=== PATIENT | female | born 1955 | race Caucasian/White ===

== ENCOUNTER 2017-05-09 10:24 | Inpatient (IN) | payer BC, OTHER ==
[~2017-05-09] VITALS: Ht 152.4 cm; Wt 121.5 kg
[~2017-05-09 10:24] MED LIST: CALC-342 PO; LANS30CA12 PO; VTMD1000 PO
[2017-05-09] MEDS ORDERED: DILTIAZEM BOLUS / DRIP IV STA (10:42)
[2017-05-09] MEDS ORDERED: SODIUM CHLORIDE 0.9% 1000ML 1,000 ML IV STA (10:45)
[2017-05-09] MEDS ORDERED: LSN/2025 PO (10:52)
[2017-05-09 11:00] LABS: BASO % 0.3 %; BASO ABS # 0.02 K/uL (0-0.2); COMPLETE YES; EOS % 1.5 %; HEMATOCRIT 46.9 % (37-47); IG% 0.3 %; LYMPH % 35.8 %; LYMPH ABS # 2.69 K/uL (1.2-3.4); MEAN CELL VOLUME 92.5 fL (80-100); MEAN CORPUSCULAR HEMOGLOBIN 30.4 pg (25-34); MEAN CORPUSCULAR HGB CONC 32.8 g/dl (32-36); MEAN PLATELET VOLUME 10.7 fL (7.4-10.4); MONO % 5.2 %; NEUT % 56.9 %; PLATELET COUNT 352 K/uL (130-400); RED BLOOD COUNT 5.07 M/uL (4.2-5.4); WHITE BLOOD COUNT 7.51 K/uL (4.8-10.8)
[2017-05-09] MEDS ORDERED: DILTIAZEM HCL INJ 125 MG in DEXTROSE 5% 100ML IV PRN (11:00)
--- NOTE | 2017-05-09 11:00 | DIAGNOSTIC IMAGING REPORT ---
CHEST ONE VIEW PORTABLE HISTORY:62 yearsFemalechest pain, sob COMPARISON: None available. TECHNIQUE: Portable upright AP view of the chest FINDINGS: Cardiac silhouette is within normal limits. There is atherosclerosis of the aorta. No pneumothorax, pleural effusion or focal airspace consolidation. There is no overt pulmonary edema. There is a 4 mm nodular opacity of the right upper lobe distribution. The bones are grossly intact. IMPRESSION: 1. No acute cardiopulmonary process. 2. 4 mm nodular opacity of the right upper lobe may reflect pulmonary vascular composite density artifact or a pulmonary nodule. This could be correlated with a nonemergent chest CT. The above report was generated using voice recognition software. It may contain grammatical, syntax or spelling errors. Electronically signed by: Dank Fowler 05/09/2017 10:59 AM Dictated Date/Time: 05/09/2017 10:56 AM
[2017-05-09 11:21] LABS: ALT/SGPT 20 U/L (12-78); AST/SGOT 13 U/L (15-37); BLOOD UREA NITROGEN 13 mg/dl (7-18); BUN/CREATININE RATIO 20.3 (10-20); CALCIUM 9.6 mg/dl (8.5-10.1); CARBON DIOXIDE 28 mmol/L (21-32); CHLORIDE 105 mmol/L (98-107); CREATININE 0.63 mg/dl (0.60-1.20); GLUCOSE 126 mg/dl (70-99); POTASSIUM 3.6 mmol/L (3.5-5.1); SODIUM 140 mmol/L (136-145)
[2017-05-09 11:22] LABS: PROTHROMBIN TIME (PATIENT) 10.3 SECONDS (9.0-12.0)
[2017-05-09 11:32] LABS: ALKALINE PHOSPHATASE 57 U/L (45-117)
[2017-05-09 12:10] VITALS: O2SAT 99; Ht 152.4 cm; Wt 121.5 kg
[2017-05-09] MEDS ORDERED: OPTIRAY 320 IV PRN (13:15)
--- NOTE | 2017-05-09 13:51 | DIAGNOSTIC IMAGING REPORT ---
(CHEST FOR PE) ANGIO WITH CT DOSE: 565.71 mGycm HISTORY: 62-year-old female presents with atrial fibrillation, hypoxia and shortness of breath. TECHNIQUE: Multiple CTA images of the chest were obtained after the intravenous administration of 106 ml optiray 320. Coronal and sagittal MIPS were obtained from the axial data set and were submitted for review. Comparison: Chest radiograph 05/09/2017. Findings: CTA: There is adequate opacification of the pulmonary arteries to the level of the subsegmental branches without convincing evidence of acute pulmonary embolism. The main pulmonary artery is dilated measuring up to 3.3 cm transversely. The thoracic aorta is normal in course and caliber. There is atherosclerotic plaquing at the origin of the celiac trunk, only partially imaged which appears to cause at least moderate luminal narrowing. Coronary arterial arterial calcifications are noted. CT CHEST: Mildly prominent right hilar lymph node measures 2.0 x 1.1 cm. Subcarinal lymph node measures 2.4 x 1.1 cm. Mildly enlarged left hilar lymph node measures 1.7 x 1.2 cm. Note is made of an azygos fissure and lobe. There are trace bilateral pleural effusions. No pneumothorax. There is pulmonary vascular congestion with bronchial wall thickening. Scattered consolidative opacities are present within the dependent lung bases. Groundglass opacities are seen peripherally within the right greater than left lung apices measuring up to 1.3 x 0.8 cm. There is subsegmental atelectasis of the lung bases. The imaged upper abdominal structures are normal. The osseous structures appear intact. IMPRESSION: 1. No acute aortic pathology or evidence of pulmonary thromboembolic disease. 2. Trace bilateral pleural effusions with scattered groundglass and consolidative opacities in a multilobar bilateral distribution suggests atypical pneumonia or pulmonary edema. 3. Moderate background bronchitis. 4. Mild hilar and mediastinal adenopathy, likely reactive. Electronically signed by: Dank Fowler 05/09/2017 1:50 PM Dictated Date/Time: 05/09/2017 1:38 PM
[2017-05-09] MEDS ORDERED: CEFTRIAXONE SOD INJ 1 GM ADDVIAL IV STA (13:54)
[2017-05-09] MEDS ORDERED: AZITHROMYCIN 250 MG TAB PO ONE (14:00)
--- NOTE | 2017-05-09 14:02 | EMERGENCY ROOM VISIT NOTE ---
History Report prepared by Goldie: Teto Canela Under the Supervision of: Dr. Daya Pamla D.O. First contact with patient: 10:32 Stated Complaint: RAPID AFIB History of Present Illness The patient is a 62 year old female who presents to the Emergency Room by EMS with complaints of persistent heart palpitations beginning shortly prior to arrival. She states that she woke up and felt a large amount of "pressure" in her chest. She has no cardiac history other than a heart murmur. The patient also notes that she has had some nausea and back pain. She denies any shortness of breath, chills, fevers, vomiting, or diarrhea. She has no history of thyroid problems. EMS found the patient to be in rapid A. fib with a heart rate in the 150s and 160s. The patient was given Cardizem en route which improved her symptoms. Source of History: patient Onset: Shortly prior to arrival Quality: other (heart palpitations) Timing: other (persistent) Modifying Factors (Relieving): other (Cardizem) Associated Symptoms: + chest pain ("pressure"), + nausea, + back pain, No fevers, No SOB, No vomiting, No diarrhea Review of Systems See HPI for pertinent positives & negatives. A total of 10 systems reviewed and were otherwise negative. Past Medical & Surgical Medical Problems: (1) Esophageal Reflux (2) Hypertension Nos Family History No significant family history Social History Smoking Status: Never Smoker Marital Status: Housing Status: lives with family Occupation Status: unemployed Current/Historical Medications Scheduled Calcium Carbonate-Vitamin D (Calcium 600+D), 1 TAB PO BID Cholecalciferol (Vitamin D3), 2,000 INTER.UNIT PO DAILY Hctz/Lisinopril (Lisinopril/Hctz 20/25 Mg), 1 TAB PO DAILY Lansoprazole (Prevacid), 30 MG PO DAILY Allergies Coded Allergies: No Known Allergies (Unverified , 05/09/17) Physical Exam Vital Signs Date Time Temp Pulse Resp B/P (MAP) Pulse Ox O2 Delivery O2 Flow Rate FiO2 05/09/17 14:04 77 05/09/17 13:45 80 16 138/76 99 Nasal Cannula 2.0 05/09/17 12:14 75 18 134/59 98 Nasal Cannula 3.0 05/09/17 12:10 99 Nasal Cannula 2.0 05/09/17 11:36 88 7/10/17 11:30 137 22 131/102 94 Nasal Cannula 3.0 05/09/17 11:15 134 21 110/95 95 Nasal Cannula 3.0 05/09/17 11:01 149 20 125/78 92 Nasal Cannula 3.0 05/09/17 10:52 91 Nasal Cannula 3.0 05/09/17 10:43 36.5 138 22 103/80 86 Room Air 05/09/17 10:43 86 Room Air 05/09/17 10:40 133 Physical Exam GENERAL: alert, well appearing, well nourished, no distress, non-toxic EYE EXAM: normal conjunctiva, PERRL and EOM's grossly intact OROPHARYNX: no exudate, no erythema, lips, buccal mucosa, and tongue normal and mucous membranes are moist NECK: supple, no nuchal rigidity, no adenopathy, non-tender LUNGS: Clear to auscultation. Normal chest wall mechanics HEART: t=Tachycardic rate with a regular rhythm. No murmurs, S1 normal and S2 normal ABDOMEN: abdomen soft, non-tender, normo-active bowel sounds, no masses, no rebound or guarding. BACK: Back is symmetrical on inspection and there is no deformity, no midline tenderness, no CVA tenderness. SKIN: no rashes and no bruising UPPER EXTREMITIES: upper extremities are grossly normal. LOWER EXTREMITIES: No pitting edema. NEURO EXAM: Normal sensorium, cranial nerves II-XII [grossly] intact, normal speech, no [gross] weakness of arms, no [gross] weakness of legs. [No drift. Finger to nose intact. Gross sensation intact.] Medical Decision & Procedures ER Provider Diagnostic Interpretation: Radiology results have been interpreted by the radiologist and reviewed by me. CHEST ONE VIEW PORTABLE FINDINGS: Cardiac silhouette is within normal limits. There is atherosclerosis of the aorta. No pneumothorax, pleural effusion or focal airspace consolidation. There is no overt pulmonary edema. There is a 4 mm nodular opacity of the right upper lobe distribution. The bones are grossly intact. IMPRESSION: 1. No acute cardiopulmonary process. 2. 4 mm nodular opacity of the right upper lobe may reflect pulmonary vascular composite density artifact or a pulmonary nodule. This could be correlated with a nonemergent chest CT. The above report was generated using voice recognition software. It may contain grammatical, syntax or spelling errors. Electronically signed by: Dank Fowler (CHEST FOR PE) ANGIO WITH Findings: CTA: There is adequate opacification of the pulmonary arteries to the level of the subsegmental branches without convincing evidence of acute pulmonary embolism. The main pulmonary artery is dilated measuring up to 3.3 cm transversely. The thoracic aorta is normal in course and caliber. There is atherosclerotic plaquing at the origin of the celiac trunk, only partially imaged which appears to cause at least moderate luminal narrowing. Coronary arterial arterial calcifications are noted. CT CHEST: Mildly prominent right hilar lymph node measures 2.0 x 1.1 cm. Subcarinal lymph node measures 2.4 x 1.1 cm. Mildly enlarged left hilar lymph node measures 1.7 x 1.2 cm. Note is made of an azygos fissure and lobe. There are trace bilateral pleural effusions. No pneumothorax. There is pulmonary vascular congestion with bronchial wall thickening. Scattered consolidative opacities are present within the dependent lung bases. Groundglass opacities are seen peripherally within the right greater than left lung apices measuring up to 1.3 x 0.8 cm. There is subsegmental atelectasis of the lung bases. The imaged upper abdominal structures are normal. The osseous structures appear intact. IMPRESSION: 1. No acute aortic pathology or evidence of pulmonary thromboembolic disease. 2. Trace bilateral pleural effusions with scattered groundglass and consolidative opacities in a multilobar bilateral distribution suggests atypical pneumonia or pulmonary edema. 3. Moderate background bronchitis. 4. Mild hilar and mediastinal adenopathy, likely reactive. Electronically signed by: Dank Fowler Laboratory Results Test 05/09/17 09:36 Immature Granulocyte % (Auto) 0.3 % White Blood Count 7.51 K/uL (4.8-10.8) Red Blood Count 5.07 M/uL (4.2-5.4) Hemoglobin 15.4 g/dL (12.0-16.0) Hematocrit 46.9 % (37-47) Mean Corpuscular Volume 92.5 fL (80-100) Mean Corpuscular Hemoglobin 30.4 pg (25-34) Mean Corpuscular Hemoglobin Concent 32.8 g/dl (32-36) Platelet Count 352 K/uL (130-400) Mean Platelet Volume 10.7 fL (7.4-10.4) Neutrophils (%) (Auto) 56.9 % Lymphocytes (%) (Auto) 35.8 % Monocytes (%) (Auto) 5.2 % Eosinophils (%) (Auto) 1.5 % Basophils (%) (Auto) 0.3 % Neutrophils # (Auto) 4.28 K/uL (1.4-6.5) Lymphocytes # (Auto) 2.69 K/uL (1.2-3.4) Monocytes # (Auto) 0.39 K/uL (0.11-0.59) Eosinophils # (Auto) 0.11 K/uL (0-0.5) Basophils # (Auto) 0.02 K/uL (0-0.2) Immature Granulocyte # (Auto) 0.02 K/uL (0.00-0.02) Prothrombin Time 10.3 SECONDS (9.0-12.0) Prothromb Time International Ratio 1.0 (0.9-1.1) D-Dimer 530 ug/L FEU (0-500) Total Bilirubin 0.4 mg/dl (0.2-1) Aspartate Amino Transf (AST/SGOT) 13 U/L (15-37) Alanine Aminotransferase (ALT/SGPT) 20 U/L (12-78) Alkaline Phosphatase 57 U/L (45-117) Pro-B-Type Natriuretic Peptide 190 pg/ml (0-900) Total Protein 7.4 gm/dl (6.4-8.2) Albumin 3.7 gm/dl (3.4-5.0) Globulin 3.7 gm/dl (2.5-4.0) Albumin/Globulin Ratio 1.0 (0.9-2) Thyroid Stimulating Hormone (TSH) 1.610 uIu/ml (0.300-4.500) Hepatitis C Antibody Screen NEG (NEG) Laboratory results per my review. Medications Administered Medications (Trade) Dose Ordered Sig/Donnie Route Start Time Stop Time Status Last Admin Dose Admin Sodium Chloride 1,000 ml @ 999 mls/hr Q1H1M STAT IV 05/09/17 10:45 05/09/17 11:45 DC 05/09/17 10:59 999 MLS/HR Diltiazem HCl 125 mg/Dextrose 125 ml @ 0 mls/hr Q0M PRN IV 05/09/17 11:00 05/09/17 17:20 DC 05/09/17 10:58 5 MLS/HR Ceftriaxone Sodium (Rocephin Inj) 1 gm NOW STAT IV 05/09/17 13:54 05/09/17 13:55 DC 05/09/17 14:56 1 GM Azithromycin (Zithromax Tab) 500 mg NOW ONCE PO 05/09/17 14:00 05/09/17 14:01 DC 05/09/17 14:56 500 MG Heparin Sodium/ Dextrose (Heparin 25,000 Unit/500ml D5W) 25,000 unit STK-MED ONCE .ROUTE 05/09/17 14:42 05/09/17 14:43 DC 05/09/17 15:00 25,000 UNIT Heparin Sodium (Porcine) (Heparin Sq 5000 Unit/0.5ml) 10,000 unit STK-MED ONCE .ROUTE 05/09/17 14:42 05/09/17 14:43 DC 05/09/17 14:58 6,000 UNIT ECG Indication: abdominal pain, palpitations Rate (beats per minute): 138 Rhythm: atrial fibrillation (with RVR) Findings: ST depression (Leads V4 and V5), other (Normal axis) Change: Repeat ECG reveals a normal sinus rhythm with a rate of 75 bpm. No acute ischemic changes or ectopy seen. Normal intervals. ED Course 1035: The patient was evaluated in room B9. A complete history and physical exam was performed. 1045: Ordered Sodium Chloride 1000 ml @ 999 mls/hr IV, Diltiazem HCl 125 mL IV. 1120: I reassessed the patient. She is resting comfortably. 1209: I checked in on the patient. She appears to have converted to a normal sinus rhythm on the monitor. 1354: Ordered Rocephin Inj 1 gm IV. 1400: Upon reevaluation, the patient is resting comfortably. I discussed the findings and the treatment plan with the patient. She expresses agreement and understanding. I spoke with Dr. Garza of the [facility] Hospitalist Service. Discussed anticoagulation, and would like patient started on heparin at this time. The patient will be evaluated for further management. Ordered Zithromax Tab 500 mg PO. Medical Decision Differential diagnosis: Etiologies such as premature contractions, electrolyte abnormality, cardiac dysrhythmia, thyroid dysfunction, pulmonary embolism, infection, gastrointestinal, as well as others were entertained. Patient symptoms most likely related to her rapid A. fib today, and symptoms seem to started within the last 24 hours, patient thus low risk for stroke. Patient converted to normal sinus rhythm on the emergency room. While evaluating for possible causes of her new onset atrial fibrillation, patient underwent a CT angios chest which raised the possibility of a bilateral atypical pneumonia. Vision covered with antibiotics. No fevers or leukocytosis of the patient has complained of a recent cough. Discussed with patient need for admission and continued monitoring, cardiology evaluation, treatment of her pneumonia, she verbalized understanding was agreeable with plan. Patient noted marked improvement with rate control of her A. fib and further improvement with conversion back to normal sinus rhythm. Doubt bacteremia/sepsis, no evidence of congestive heart failure. No evidence of other vascular etiology, tamponade, effusion. Patient with no prior significant cardiac history. Consults Time Called: 1357 Consulting Physician: Dr. Garza -CHAUNCEY Returned Call: 1400 I reviewed the patient's case with Dr. Garza. CHAUNCEY will evaluate the patient for further management. Impression Primary Impression: Atrial fibrillation with rapid ventricular response Additional Impression: Pneumonia Critical Care I have personally spent 35 minutes of critical care time in the direct management of this patient. This includes bedside care, interpretation of diagnostic studies, and testing, discussion with consultants, patient, and family members, and other required patient management activities. This 35 minutes is in excess of all separately billable procedures. Scribe Attestation The scribe's documentation has been prepared under my direction and personally reviewed by me in its entirety. I confirm that the note above accurately reflects all work, treatment, procedures, and medical decision making performed by me. Departure Information Dispostion Being Evaluated By Hospitalist Referrals Jennifer Mendez P.A. (PCP) Problem Qualifiers Additional Impression: Pneumonia Pneumonia type: due to unspecified organism Laterality: bilateral Lung location: unspecified part of lung Qualified Codes: J18.9 - Pneumonia, unspecified organism
[2017-05-09] MEDS ORDERED: HEPARIN SOD 5000 UNIT/0.5 ML CARP ONE (14:42)
[2017-05-09] MEDS ORDERED: HEPARIN 25000 UNIT/500 ML D5W ONE (14:42)
[2017-05-09] MEDS ORDERED: ALUMINUM/MAGNESIUM/SIMETH (MAALOX MAX) 30 ML UDC PO PRN (14:45)
[2017-05-09] MEDS ORDERED: ACETAMINOPHEN 325 MG TAB PO PRN (14:45)
[2017-05-09] MEDS ORDERED: NITROGLYCERIN 0.4 MG SL PER TAB CHARGE SL PRN (14:45)
[2017-05-09] MEDS ORDERED: MAGNESIUM HYDROXIDE SUSP 30 ML UDC PO PRN (14:45)
[2017-05-09] MEDS ORDERED: ONDANSETRON INJ 2 MG/ML 2 ML VIAL IV PRN (14:45)
[2017-05-09] MEDS ORDERED: POLYETHYLENE (MIRALAX) 17 GM PACK PO PRN (14:45)
--- NOTE | 2017-05-09 15:08 | History and Physical ---
History & Physical Date & Time of Service: May 09, 2017 at 14:54 Chief Complaint: Rapid Afib Primary Care Physician: Jennifer Mendez P.A. History of Present Illness Source: patient Ms. Sevilla is a 62 y/o female with PMHx of HTN, GERD, and OA who presents to the ED complaining of persistent palpitations and chest pain that started at 0630 this AM. She reports last night having back pain which was unusual to her but she contributed this to getting out of the car and thinking she pulled something. Other than this complaint, she went to bed her normal self. This AM, chest pain awoke her and is sternal described as a pressure and similar to gas- like pressure. She states she was burping which did not relieve the pressure which normally does when she has gas-pain/GERD symptoms. She states she felt well overall prior to today. states that she has been coughing more than normal and mostly in the AM. She reports nasal congestion and post-nasal drip. reports she intermittently snores but no diagnosis of ALEM. She has no significant cardiac history but was advised to see a mig tig welder, which she hasn't yet. She states she had an echocardiogram done in August and she was told she had something with her left ventricle. EMS was called and noted patient to be in new onset A Fib with RVR and initiated Cardizem. Patient reporting resolution of symptoms around 1130 today after Cardizem. She denies fever/chills, SOB, abdominal pain, N/V, dysuria, constipation/diarrhea, melena/ hematochezia. In the ED, patient noted to be in A Fib RVR and converted to NSR with Cardizem gtt. She is afebrile without leukocytosis. TSH and electrolytes are WNL. CTA which was negative for PE but evidence of bilateral multiple consolidations suggesting atypical pneumonia vs pulmonary edema. She will be admitted to telemetry for new onset A Fib with RVR. Past Medical/Surgical History Medical Problems: (1) Esophageal Reflux Status: Chronic (2) Hypertension Nos Status: Chronic Family History Diabetes mellitus MOTHER, SISTER, No significant family history Pancreatic Cancer SISTER, Stroke FATHER Social History Smoking Status: Never Smoker Smokeless Tobacco Use: No Alcohol Use: none Drug Use: none Marital Status: Occupational Status: unemployed Multi-Drug Resistant Organisms History of MDRO: No Allergies Coded Allergies: No Known Allergies (Unverified , 05/09/17) Home Medications Scheduled Calcium Carbonate-Vitamin D (Calcium 600+D), 1 TAB PO BID Cholecalciferol (Vitamin D3), 2,000 INTER.UNIT PO DAILY Hctz/Lisinopril (Lisinopril/Hctz 20/25 Mg), 1 TAB PO DAILY Lansoprazole (Prevacid), 30 MG PO DAILY Review of Systems Constitutional: No fever, No chills Eyes: No worsening of vision ENT: + nasal symptoms, + trouble swallowing (chronic due to GERD), No sore throat Respiratory: + cough, + sputum, No wheezing, No dyspnea on exertion, No dyspnea at rest Cardiovascular: + chest pain, + palpitations Abdomen: No pain, No nausea, No vomiting, No diarrhea, No constipation, No GI bleeding Musculoskeletal: + swelling (chronic LLE due to OA of knee), No calf pain Genitourinary - Female: No dysuria Neurologic: No numbness/tingling, No vertigo, No balance problems Hematologic / Lymphatic: No abnormal bleeding/bruising, No clotting problems Physical Exam Vital Signs Date Time Temp Pulse Resp B/P (MAP) Pulse Ox O2 Delivery O2 Flow Rate FiO2 05/09/17 14:04 77 05/09/17 13:45 80 16 138/76 99 Nasal Cannula 2.0 05/09/17 12:14 75 18 134/59 98 Nasal Cannula 3.0 05/09/17 12:10 99 Nasal Cannula 2.0 05/09/17 11:36 88 05/09/17 11:30 137 22 131/102 94 Nasal Cannula 3.0 05/09/17 11:15 134 21 110/95 95 Nasal Cannula 3.0 05/09/17 11:01 149 20 125/78 92 Nasal Cannula 3.0 05/09/17 10:52 91 Nasal Cannula 3.0 05/09/17 10:43 36.5 138 22 103/80 86 Room Air 05/09/17 10:43 86 Room Air 05/09/17 10:40 133 General Appearance: WD/WN, no apparent distress, + obese Head: normocephalic, atraumatic Eyes: sclerae normal ENT: hearing grossly normal Neck: supple, no JVD, trachea midline Respiratory/Chest: normal breath sounds, no respiratory distress, no accessory muscle use, + crackles (minimal in bases bilat) Cardiovascular: regular rate, rhythm, no gallop, no murmur Abdomen/GI: normal bowel sounds, non tender, soft Back: normal inspection, no CVA tenderness Extremities/Musculoskelatal: no calf tenderness, no pedal edema Neurologic/Psych: alert, oriented x 3 Skin: normal color, warm/dry Diagnostics Laboratory Results Results Past 24 Hours Test 05/09/17 09:36 Range/Units White Blood Count 7.51 4.8-10.8 K/uL Red Blood Count 5.07 4.2-5.4 M/uL Hemoglobin 15.4 12.0-16.0 g/dL Hematocrit 46.9 37-47 % Mean Corpuscular Volume 92.5 80-100 fL Mean Corpuscular Hemoglobin 30.4 25-34 pg Mean Corpuscular Hemoglobin Concent 32.8 32-36 g/dl Platelet Count 352 130-400 K/uL Mean Platelet Volume 10.7 7.4-10.4 fL Neutrophils (%) (Auto) 56.9 % Lymphocytes (%) (Auto) 35.8 % Monocytes (%) (Auto) 5.2 % Eosinophils (%) (Auto) 1.5 % Basophils (%) (Auto) 0.3 % Neutrophils # (Auto) 4.28 1.4-6.5 K/uL Lymphocytes # (Auto) 2.69 1.2-3.4 K/uL Monocytes # (Auto) 0.39 0.11-0.59 K/uL Eosinophils # (Auto) 0.11 0-0.5 K/uL Basophils # (Auto) 0.02 0-0.2 K/uL RDW Standard Deviation 48.5 36.4-46.3 fL RDW Coefficient of Variation 14.3 11.5-14.5 % Immature Granulocyte % (Auto) 0.3 % Immature Granulocyte # (Auto) 0.02 0.00-0.02 K/uL Prothrombin Time 10.3 9.0-12.0 SECONDS Prothromb Time International Ratio 1.0 0.9-1.1 D-Dimer 530 0-500 ug/L FEU Sodium Level 140 136-145 mmol/L Potassium Level 3.6 3.5-5.1 mmol/L Chloride Level 105 98-107 mmol/L Carbon Dioxide Level 28 21-32 mmol/L Anion Gap 7.0 3-11 mmol/L Blood Urea Nitrogen 13 7-18 mg/dl Creatinine 0.63 0.60-1.20 mg/dl Est Creatinine Clear Calc Drug Dose 115.8 ml/min Estimated GFR () 113.0 Estimated GFR (Non- 97.5 BUN/Creatinine Ratio 20.3 10-20 Random Glucose 126 70-99 mg/dl Calcium Level 9.6 8.5-10.1 mg/dl Total Bilirubin 0.4 0.2-1 mg/dl Aspartate Amino Transf (AST/SGOT) 13 15-37 U/L Alanine Aminotransferase (ALT/SGPT) 20 12-78 U/L Alkaline Phosphatase 57 45-117 U/L Troponin I < 0.015 0-0.045 ng/ml Pro-B-Type Natriuretic Peptide 190 0-900 pg/ml Total Protein 7.4 6.4-8.2 gm/dl Albumin 3.7 3.4-5.0 gm/dl Globulin 3.7 2.5-4.0 gm/dl Albumin/Globulin Ratio 1.0 0.9-2 Thyroid Stimulating Hormone (TSH) 1.610 0.300-4.500 uIu/ml Diagnostic Radiology (CHEST FOR PE) ANGIO WITH Findings: CTA: There is adequate opacification of the pulmonary arteries to the level of the subsegmental branches without convincing evidence of acute pulmonary embolism. The main pulmonary artery is dilated measuring up to 3.3 cm transversely. The thoracic aorta is normal in course and caliber. There is atherosclerotic plaquing at the origin of the celiac trunk, only partially imaged which appears to cause at least moderate luminal narrowing. Coronary arterial arterial calcifications are noted. CT CHEST: Mildly prominent right hilar lymph node measures 2.0 x 1.1 cm. Subcarinal lymph node measures 2.4 x 1.1 cm. Mildly enlarged left hilar lymph node measures 1.7 x 1.2 cm. Note is made of an azygos fissure and lobe. There are trace bilateral pleural effusions. No pneumothorax. There is pulmonary vascular congestion with bronchial wall thickening. Scattered consolidative opacities are present within the dependent lung bases. Groundglass opacities are seen peripherally within the right greater than left lung apices measuring up to 1.3 x 0.8 cm. There is subsegmental atelectasis of the lung bases. The imaged upper abdominal structures are normal. The osseous structures appear intact. IMPRESSION: 1. No acute aortic pathology or evidence of pulmonary thromboembolic disease. 2. Trace bilateral pleural effusions with scattered groundglass and consolidative opacities in a multilobar bilateral distribution suggests atypical pneumonia or pulmonary edema. 3. Moderate background bronchitis. 4. Mild hilar and mediastinal adenopathy, likely reactive. EKG Atrial fibrillation with rapid ventricular response Nonspecific ST abnormality Abnormal QRS-T angle, consider primary T wave abnormality Abnormal ECG No previous ECGs available Impression Assessment and Plan Ms. Sveilla is a 62 y/o female with PMHx of HTN, GERD, and OA who presents to the ED complaining of persistent palpitations and chest pain that started at 0630 this AM New Onset Atrial Fibrillation with RVR: Currently NSR - CHADSVASC 2 - Converted to NSR with Diltiazem - Monitor on tele and obtain serial cardiac enzymes - Heparin bolus and gtt - Cardizem 120 mg daily - if patient converts back to A Fib RVR can reinstitute gtt if necessary - Lopressor IV PRN tachycardia - Echocardiogram - Consult cardiology - any consideration for ongoing medication control and to establish F/U Multilobar Bilateral Consolidations - Atypical PNA vs Pulmonary Edema: - Increased cough but afebrile without leukocytosis - community acquired - possibly more from pulm. edema related to rhythm? - Levaquin 750 mg IV daily likely can convert to oral agents in AM Acute Hypoxic Respiratory Failure: - Likely from AFib RVR vs Consolidations on CTA -- She denies SOB or H/O pulmonary conditions - question of possible ALEM or hypoventilation syndrome? - O2 per protocol and wean as necessary HTN: - HCTZ/Lisinopril 1 tab daily DVT Prophylaxis: Heparin gtt Code Status: FULL RESUSCITATION Disposition: - Consideration for NOAC - will need cost check to assess affordability Level of Care Telemetry Advanced Directives Existing Living Will: No Existing Power of Associate Designer: No Resuscitation Status FULL RESUSCITATION VTE Prophylaxis VTE Risk Assessment Done? Y/N: Yes Risk Level: Moderate Given or contraindicated: Other Anticoagulation (Heparin gtt) Reviewed: Pt Seen/Exam by Me History Pt states she has no palpitations or chest pain/pressure at this time. She feels at her usual. States sx were first noted when she woke up this AM. Yesterday was a typical day for her and she was able to do all of her usual activities. She did note an uncomfortable feeling in her back last night, but she thought she may have twisted wrong getting out of the car and dismissed this. She is eating dinner now without issue. She is on RA right now and not SOB. Agree with HPI/ROS as noted. General Appearance: no apparent distress, obese Ears, Nose, Throat: hearing grossly normal Neck: supple Respiratory: normal breath sounds, no respiratory distress Cardiovascular: normal peripheral pulses, regular rate, rhythm Gastrointestinal: non tender, soft Extremities: non-tender, no pedal edema Neurologic/Psychiatric: alert, normal mood/affect, oriented x 3 Skin Characteristics: normal color, warm/dry Assessment/Plan Agree with plan as outlined above Pt with new onset afib, now in NSR s/p cardizem drip Will start PO tonight and monitor Heparin gtt and anticoag as determined by cost with CM PNA noted on CTA, erlinda
[2017-05-09] MEDS ORDERED: METOPROLOL TARTRATE 1 MG/ML VIAL IV PRN (15:15)
[2017-05-09 17:00] VITALS: BP 164/78; PULSE 83; TEMP 36.6; O2SAT 95
[2017-05-09] MEDS ORDERED: NURSING VERBAL MED ORDER ONE (17:30)
[2017-05-09] MEDS ORDERED: LEVOFLOXACIN / D5W 750 MG in PREMIXED IN D5W 150 ML IV SCH (18:00)
[2017-05-09] MEDS ORDERED: PANTOprazole SOD 40 MG TAB PO ONE (18:00)
[2017-05-09] MEDS: ALBUT/IPRATROP 3MG/0.5MG NEB 3 ML VIAL INH SCH (19:14)
[2017-05-09 19:20] VITALS: PULSE 87; O2SAT 94
[2017-05-09 19:32] VITALS: BP 168/69; PULSE 87; TEMP 36.6; O2SAT 94
[2017-05-10] VITALS (8 sets, daily range): BP systolic 133–159; BP diastolic 59–78; PULSE 78–106; TEMP 36.5–36.8; O2SAT 93–97
[2017-05-10] MEDS: ALBUT/IPRATROP 3MG/0.5MG NEB 3 ML VIAL INH SCH ×3 (07:29→20:20)
[2017-05-10] MEDS: HEPARIN 25,000 UNIT/500ML D5W 500 ML IV PRN (08:01)
[2017-05-10 08:02] LABS: HEMATOCRIT 41.8 % (37-47); MEAN CELL VOLUME 92.3 fL (80-100); MEAN CORPUSCULAR HGB CONC 32.5 g/dl (32-36); MEAN PLATELET VOLUME 10.1 fL (7.4-10.4); PLATELET COUNT 282 K/uL (130-400); RED BLOOD COUNT 4.53 M/uL (4.2-5.4); WHITE BLOOD COUNT 7.11 K/uL (4.8-10.8)
[2017-05-10] MEDS: PANTOprazole SOD 40 MG TAB PO SCH (08:12)
[2017-05-10] MEDS: LISINOPRIL/HCTZ 20/25MG TAB PO SCH (08:12)
[2017-05-10 08:19] LABS: PARTIAL THROMBOPLASTIN RATIO 1.8
[2017-05-10 08:22] LABS: BUN/CREATININE RATIO 13.6 (10-20); CALCIUM 9.3 mg/dl (8.5-10.1); CREATININE 0.59 mg/dl (0.60-1.20); MAGNESIUM 2.2 mg/dl (1.8-2.4); POTASSIUM 3.9 mmol/L (3.5-5.1)
[2017-05-10] MEDS ORDERED: PERFLUTREN LIPID MICROSPHERE (DEFINITY) IV ONE (08:32)
--- NOTE | 2017-05-10 08:55 | Cardiology Consultation ---
Cardiology Consultation Date of Consultation: May 10, 2017. Requesting Physician: Dr. Castaneda Reason for Consultation: AF, CP, Pos troponin Pt evaluation today including: conversation w/ patient, physical exam, lab review, review of studies, review of inpatient medication list History of Present Illness This is a 62-year-old woman who presented to the emergency room with palpitations and chest discomfort on 05/09/2017. She has a background history of hypertension as well as an echocardiogram done earlier this year showing a left ventricular outflow tract gradient which has not been further evaluated. She has no history of palpitations or chest discomfort. She awoke at around 6: 30 in the morning to go to the bathroom, felt relatively normal at that time, however after going back to bed had sudden onset of rapid palpitations and chest and back discomfort. She thinks the back discomfort may been there to certain extent the evening before but without the palpitations. She felt that she might be having a heart attack so she came to the emergency room where she was noted to be in atrial fibrillation with a rapid ventricular response. She was treated with intravenous diltiazem (although did not have a lot of rate control based on telemetry records) but the arrhythmia terminated spontaneously at around 11:30 AM, therefore she was in it for about 5 hours. She immediately felt better and was aware of the conversion. She is quite adamant that she has never had these symptoms before. Her cardiac enzymes did elevate somewhat following admission, they were normal on admission however peaked at 1.2 on the second set and then drop back to 0.9 on the third set. Her admission electrocardiogram showed rapid atrial fibrillation with lateral ST depression, following conversion the ST depression normalized. She denies having exertional chest discomfort prior to this, although she is troubled by her arthritis and is obese and is not reactive. Indication for blood pressure has been an AIRNA inhibitor, she has not been on a beta pau. Since conversion back to sinus rhythm she has felt well and has had no recurrence of her chest discomfort or her palpitations. She was placed on oral diltiazem which she received this morning. She has chronic mild left leg edema which has not been worsening, she has no shortness of breath. Past Medical/Surgical History (1) Esophageal Reflux (2) Hypertension Nos Family History Diabetes mellitus MOTHER, SISTER, No significant family history Pancreatic Cancer SISTER, Stroke FATHER Social History Smoking Status: Never Smoker History of Alcohol Use: No Review of Systems Constitutional: No fever, No weight loss, No weakness Respiratory: + see HPI, + shortness of breath, No cough, No wheezing, No dyspnea on exertion Cardiac: + see HPI, + chest pain, + edema, No orthopnea, No PND, No palpitations Abdomen: No pain, No nausea, No vomiting, No diarrhea, No GI bleeding Female : No problem reported Neurologic: No paralysis, No weakness, No numbness/tingling, No balance problems Heme: No abnormal bleeding/bruising, No clotting problems Endo: No fatigue Skin: No problem reported All Other Systems: Reviewed and Negative Allergies Coded Allergies: No Known Allergies (Unverified , 05/09/17) Medications Current Inpatient Medications Medications (Trade) Dose Ordered Sig/Donnie Route Start Time Stop Time Status Last Admin Dose Admin Ioversol (Optiray 320) 125 ml UD PRN IV 05/09/17 13:15 05/13/17 13:14 Acetaminophen (Tylenol Tab) 650 mg Q4H PRN PO 05/09/17 14:45 06/08/17 14:44 Al Hydrox/Mg Hydrox/Simethicone (Maalox Max Susp) 15 ml Q4H PRN PO 05/09/17 14:45 06/08/17 14:44 Magnesium Hydroxide (Milk Of Magnesia Susp) 30 ml Q12H PRN PO 05/09/17 14:45 06/08/17 14:44 Ondansetron HCl (Zofran Inj) 4 mg Q6H PRN IV 05/09/17 14:45 06/08/17 14:44 Nitroglycerin (Nitrostat Tab) 0.4 mg UD PRN SL 05/09/17 14:45 06/08/17 14:44 Polyethylene (Miralax Powder Packet) 17 gm DAILY PRN PO 05/09/17 14:45 06/08/17 14:44 HCTZ/Lisinopril (Prinzide 20-25MG Tab) 1 tab DAILY PO 05/10/17 09:00 06/09/17 08:59 05/10/17 08:12 1 TAB Pantoprazole Sodium (Protonix Tab) 40 mg DAILY PO 05/10/17 09:00 06/09/17 08:59 05/10/17 08:12 40 MG Metoprolol Tartrate (Lopressor Iv) 5 mg Q4 PRN IV 05/09/17 15:15 06/08/17 15:14 Levofloxacin 750 mg/Prmx 150 ml @ 100 mls/hr Q24H IV 05/09/17 18:00 05/16/17 17:59 05/09/17 17:46 100 MLS/HR Heparin Sodium/ Dextrose 500 ml @ 28 mls/hr [id number] PRN IV 05/09/17 17:30 06/08/17 17:29 05/10/17 08:01 28 MLS/HR Diltiazem HCl (Cardizem Cd Cap) 120 mg QAM PO 05/10/17 09:00 06/09/17 08:59 05/10/17 08:12 120 MG Albuterol/ Ipratropium (Duoneb) 3 ml QIDR INH 05/09/17 20:00 06/08/17 19:59 05/09/17 19:14 3 ML Physical Exam Vital Signs Past 12 Hours Date Time Temp Pulse Resp B/P (MAP) Pulse Ox O2 Delivery O2 Flow Rate FiO2 05/10/17 04:00 Room Air 05/10/17 04:00 36.8 81 19 152/68 (96) 95 Room Air 05/10/17 00:00 36.7 82 19 159/78 (105) 93 Room Air 05/09/17 23:59 Room Air Constitutional: General Apperance: heathly-appearing Level of Distress: NAD Psychiatric: Mental Status: active & alert Head: normocephalic Eyes: EOM: EOMI ENMT: normal ENT inspection, hearing grossly normal Neck: supple, no masses Lungs: Respiratory effort: no dyspnea, good air movement Auscultation: breath sounds normal, no wheezing Cardiovascular: Heart Auscultation: RRR, no rubs, no gallops, II/ KRIS Peripheral Pulses: Bruits: none appreciated Abdomen: Bowel Sounds: normal Inspection & Palpation: soft, no tenderness, guarding & rebound, no masses Musculoskeletal: normal strength (5/5 throughout) Extremities: edema (+1 edema of the left leg only) Neurologic: Cranial Nerves: grossly intact Sensation: grossly intact Data Laboratory Results: Last 24 Hours Test 05/09/17 09:36 05/09/17 15:44 05/09/17 21:28 05/10/17 07:50 White Blood Count 7.51 K/uL 7.11 K/uL Red Blood Count 5.07 M/uL 4.53 M/uL Hemoglobin 15.4 g/dL 13.6 g/dL Hematocrit 46.9 % 41.8 % Mean Corpuscular Volume 92.5 fL 92.3 fL Mean Corpuscular Hemoglobin 30.4 pg 30.0 pg Mean Corpuscular Hemoglobin Concent 32.8 g/dl 32.5 g/dl Platelet Count 352 K/uL 282 K/uL Mean Platelet Volume 10.7 fL 10.1 fL Neutrophils (%) (Auto) 56.9 % Lymphocytes (%) (Auto) 35.8 % Monocytes (%) (Auto) 5.2 % Eosinophils (%) (Auto) 1.5 % Basophils (%) (Auto) 0.3 % Neutrophils # (Auto) 4.28 K/uL Lymphocytes # (Auto) 2.69 K/uL Monocytes # (Auto) 0.39 K/uL Eosinophils # (Auto) 0.11 K/uL Basophils # (Auto) 0.02 K/uL RDW Standard Deviation 48.5 fL 47.6 fL RDW Coefficient of Variation 14.3 % 14.0 % Immature Granulocyte % (Auto) 0.3 % Immature Granulocyte # (Auto) 0.02 K/uL Prothrombin Time 10.3 SECONDS Prothromb Time International Ratio 1.0 D-Dimer 530 ug/L FEU Sodium Level 140 mmol/L 141 mmol/L Potassium Level 3.6 mmol/L 3.9 mmol/L Chloride Level 105 mmol/L 107 mmol/L Carbon Dioxide Level 28 mmol/L 28 mmol/L Anion Gap 7.0 mmol/L 6.0 mmol/L Blood Urea Nitrogen 13 mg/dl 8 mg/dl Creatinine 0.63 mg/dl 0.59 mg/dl Est Creatinine Clear Calc Drug Dose 115.8 ml/min 121.5 ml/min Estimated GFR () 113.0 115.5 Estimated GFR (Non- 97.5 99.6 BUN/Creatinine Ratio 20.3 13.6 Random Glucose 126 mg/dl 99 mg/dl Calcium Level 9.6 mg/dl 9.3 mg/dl Total Bilirubin 0.4 mg/dl Aspartate Amino Transf (AST/SGOT) 13 U/L Alanine Aminotransferase (ALT/SGPT) 20 U/L Alkaline Phosphatase 57 U/L Troponin I < 0.015 ng/ml 1.200 ng/ml 0.904 ng/ml Pro-B-Type Natriuretic Peptide 190 pg/ml Total Protein 7.4 gm/dl Albumin 3.7 gm/dl Globulin 3.7 gm/dl Albumin/Globulin Ratio 1.0 Thyroid Stimulating Hormone (TSH) 1.610 uIu/ml Hepatitis C Antibody Screen NEG Activated Partial Thromboplast Time 51.8 SECONDS 47.6 SECONDS Partial Thromboplastin Ratio 2.0 1.8 Magnesium Level 2.2 mg/dl Imaging: A chest x-ray done on admission showed no evidence of congestive heart failure. A chest CT scan was negative for pulmonary emboli on admission. Echocardiogram: An echocardiogram done 09/07/2016 shows normal left ventricular size with moderate asymmetric left ventricular hypertrophy and a left ventricular outflow tract obstruction. The maximum provokable gradient was 37 mmHg. Left ventricular systolic function was normal and there were no wall motion abnormalities. EKG: On admission atrial fibrillation with a heart rate of [address] depression of about 1-1/2 to 2 mm. Several echocardiograms following termination of the arrhythmia show sinus rhythm and are normal. Telemetry reviewed: Initially atrial fibrillation with a rapid ventricular response from first being placed on telemetry until around 11:30 when it terminated to a sinus rhythm. The rhythm has been stable since in sinus. Assessment & Plan 1. AF: Evidently started around 0630 05/09/2017, ended spontaneously around 1130 (5 hours). Very obvious to her, associated with CP and palpitations. Not likely she had it before or that it was longer in duration. Role of anticoagulation not clear at this time, would probably stop for now. Should be on beta blockade not calcium pau, but had it today already. Will switch tomorrow to long- acting metoprolol succinate. 2. CP: May have CAD, did have positive troponin but suggests demand ischemia but can be seen with normal cors. Should get stress echo, ordered. Should be OK to do today. It may be helpful to see what happens to her left ventricular outflow tract gradient with exercise as well. 3. HOCM: Documented on echo in August 2016, as well as audible on exam. Should have beta blockade, no other Rx for now. 4. HBP: Would use beta blockade (because of HOCM and AF). Since she ordered he received diltiazem today I will wait until tomorrow to start the metoprolol. Thank you for allowing me to participate in her care.
[2017-05-10] MEDS ORDERED: DILTIAZEM HCL 120 MG CAPCR PO SCH (09:00)
--- NOTE | 2017-05-10 10:22 | Clinical Documentation Query ---
JAKE Carrillo : CLINICAL DOCUMENTATION QUERY Clinical documentation includes a diagnosis of: Acute Hypoxic Respiratory Failure. Review of systems documentation included: " No wheezing, No dyspnea on exertion, No dyspnea at rest". Physical exam documentation included "normal breath sounds, no respiratory distress, no accessory muscle use", "denies SOB", and "no apparent distress". Due to stringent requirements by our coding department, multiple clinical indicators associated with this diagnosis must be present in order for this to be coded/captured within the medical record. If appropriate, please document 2 or more of the following clinical indicators in daily progress notes and the discharge summary. If you feel the diagnosis of acute respiratory failure was made in error, or do not agree with it, simply discontinue documentation thereof. Acute Respiratory Failure indicators include: * Respirations >28 * Air hunger * Use of accessory muscles of respiration * Inability to speak in full sentences * Cyanosis * Pulse ox <90% RA or <95% on O2 *pH <7.35 or >7.45 * pO2 < 60 mm Hg (or 10mm below COPD patient's baseline) * pCO2 >50mm Hg (or 10mm above COPD patient's baseline) * mechanical ventilation * Increased work of breathing * Tachypnea Thank You, Papa Sherwood, RN [phone]
--- NOTE | 2017-05-10 10:25 | Family Medicine Progress Note ---
Progress Note Date of Service May 10, 2017. Subjective Pt evaluation today including: conversation w/ patient, physical exam, chart review, conversation w/ senior [employer] consultant, review of inpatient medication list Pain: none Voiding: no voiding problems Patient states that she is feeling 100% better today. She is no longer having any chest discomfort, is able to walk around without becoming short of breath and feels back to her baseline She was seen by cardiology this morning who ordered a stress echo and would like to switch the patient from CCB to BB as the patient had the episode of afib and has a history of HOCM and previous echo Constitutional: No fever, No chills Respiratory: No cough, No sputum Cardiovascular: No chest pain, No edema, No palpitations Abdomen: No pain, No vomiting, No diarrhea Musculoskeletal: No joint pain, No muscle pain Skin: No rash, No itch, No new/changing skin lesions Medications Current Inpatient Medications Medications (Trade) Dose Ordered Sig/Donnie Route Start Time Stop Time Status Last Admin Dose Admin Ioversol (Optiray 320) 125 ml UD PRN IV 05/09/17 13:15 05/13/17 13:14 Acetaminophen (Tylenol Tab) 650 mg Q4H PRN PO 05/09/17 14:45 06/08/17 14:44 Al Hydrox/Mg Hydrox/Simethicone (Maalox Max Susp) 15 ml Q4H PRN PO 05/09/17 14:45 06/08/17 14:44 Magnesium Hydroxide (Milk Of Magnesia Susp) 30 ml Q12H PRN PO 05/09/17 14:45 06/08/17 14:44 Ondansetron HCl (Zofran Inj) 4 mg Q6H PRN IV 05/09/17 14:45 06/08/17 14:44 Nitroglycerin (Nitrostat Tab) 0.4 mg UD PRN SL 05/09/17 14:45 06/08/17 14:44 Polyethylene (Miralax Powder Packet) 17 gm DAILY PRN PO 05/09/17 14:45 06/08/17 14:44 HCTZ/Lisinopril (Prinzide 20-25MG Tab) 1 tab DAILY PO 05/10/17 09:00 06/09/17 08:59 05/10/17 08:12 1 TAB Pantoprazole Sodium (Protonix Tab) 40 mg DAILY PO 05/10/17 09:00 06/09/17 08:59 05/10/17 08:12 40 MG Metoprolol Tartrate (Lopressor Iv) 5 mg Q4 PRN IV 05/09/17 15:15 06/08/17 15:14 Heparin Sodium/ Dextrose 500 ml @ 28 mls/hr [id number] PRN IV 05/09/17 17:30 06/08/17 17:29 05/10/17 08:01 28 MLS/HR Albuterol/ Ipratropium (Duoneb) 3 ml QIDR INH 05/09/17 20:00 06/08/17 19:59 05/09/17 19:14 3 ML Metoprolol Succinate (Toprol Xl Tab) 100 mg QAM PO 05/11/17 09:00 06/10/17 08:59 Levofloxacin (Levaquin Tab) 750 mg DAILY@1800 PO 05/10/17 18:00 05/16/17 17:59 Objective Vital Signs Date Time Temp Pulse Resp B/P (MAP) Pulse Ox O2 Delivery O2 Flow Rate FiO2 05/10/17 09:23 36.8 81 18 146/63 (90) 96 05/10/17 08:00 Room Air 05/10/17 04:00 Room Air 05/10/17 04:00 36.8 81 19 152/68 (96) 95 Room Air 05/10/17 00:00 36.7 82 19 159/78 (105) 93 Room Air 05/09/17 23:59 Room Air 05/09/17 20:00 Room Air 05/09/17 19:32 36.6 87 20 168/69 (102) 94 Room Air 05/09/17 19:20 87 18 94 Room Air 05/09/17 17:00 36.6 83 18 164/78 (106) 95 Room Air 05/09/17 16:55 36.5 70 21 133/72 97 05/09/17 16:41 70 21 97 05/09/17 16:36 66 20 98 05/09/17 16:31 69 18 133/72 100 05/09/17 16:26 71 22 100 05/09/17 16:21 72 16 100 05/09/17 16:16 67 19 133/63 100 05/09/17 16:11 71 22 98 05/09/17 16:06 68 20 99 05/09/17 16:01 127/65 05/09/17 16:00 73 15 99 05/09/17 15:46 118/52 05/09/17 15:31 134/66 05/09/17 15:30 70 24 99 05/09/17 15:01 76 18 126/67 99 Nasal Cannula 2.0 05/09/17 14:04 77 05/09/17 13:45 80 16 138/76 99 Nasal Cannula 2.0 05/09/17 12:14 75 18 134/59 98 Nasal Cannula 3.0 05/09/17 12:10 99 Nasal Cannula 2.0 05/09/17 11:36 88 05/09/17 11:30 137 22 131/102 94 Nasal Cannula 3.0 05/09/17 11:15 134 21 110/95 95 Nasal Cannula 3.0 05/09/17 11:01 149 20 125/78 92 Nasal Cannula 3.0 05/09/17 10:52 91 Nasal Cannula 3.0 05/09/17 10:43 36.5 138 22 103/80 86 Room Air 05/09/17 10:43 86 Room Air 05/09/17 10:40 133 Physical Exam General Appearance: WD/WN, no apparent distress ENT: hearing grossly normal, pharynx normal Neck: no JVD, no carotid bruits Respiratory/Chest: lungs clear, no respiratory distress, no accessory muscle use Cardiovascular: regular rate, rhythm, no edema, no JVD, + systolic murmur (3/6 murmur heard throughout) Abdomen: normal bowel sounds, non tender, soft Extremities: no calf tenderness, normal capillary refill Neurologic/Psychiatric: alert, normal mood/affect, oriented x 3 Laboratory Results Results Past 24 Hours Test 05/09/17 15:44 05/09/17 21:28 05/10/17 07:50 Range/Units Troponin I 1.200 0.904 0-0.045 ng/ml Activated Partial Thromboplast Time 51.8 47.6 21.0-31.0 SECONDS Partial Thromboplastin Ratio 2.0 1.8 White Blood Count 7.11 4.8-10.8 K/uL Red Blood Count 4.53 4.2-5.4 M/uL Hemoglobin 13.6 12.0-16.0 g/dL Hematocrit 41.8 37-47 % Mean Corpuscular Volume 92.3 80-100 fL Mean Corpuscular Hemoglobin 30.0 25-34 pg Mean Corpuscular Hemoglobin Concent 32.5 32-36 g/dl RDW Standard Deviation 47.6 36.4-46.3 fL RDW Coefficient of Variation 14.0 11.5-14.5 % Platelet Count 282 130-400 K/uL Mean Platelet Volume 10.1 7.4-10.4 fL Sodium Level 141 136-145 mmol/L Potassium Level 3.9 3.5-5.1 mmol/L Chloride Level 107 98-107 mmol/L Carbon Dioxide Level 28 21-32 mmol/L Anion Gap 6.0 3-11 mmol/L Blood Urea Nitrogen 8 7-18 mg/dl Creatinine 0.59 0.60-1.20 mg/dl Est Creatinine Clear Calc Drug Dose 121.5 ml/min Estimated GFR () 115.5 Estimated GFR (Non- 99.6 BUN/Creatinine Ratio 13.6 10-20 Random Glucose 99 70-99 mg/dl Calcium Level 9.3 8.5-10.1 mg/dl Magnesium Level 2.2 1.8-2.4 mg/dl Assessment and Plan Ms. Sevilla is a 62 y/o female with PMHx of HTN, GERD, and OA who presents to the ED complaining of persistent palpitations and chest pain. Was found to be in Afib with RVR and was converted to NSR with diltiazem. New Onset Atrial Fibrillation with RVR: Currently NSR - converted to NSR with diltiazem. - Echo from 2015 showed HOCM. Patient will need to be switched to BB tomorrow - serial cardiac enzymes were 1.2 and 0.9. Likely demand ischaemia considering resolution of symptoms after conversion to NSR - Heparin bolus and gtt - Cardiology ordered a stress echo today to screen for coronary pathology. patient may need cath as outpatient - Patient has a CHASVASC score of 2. Will need to discuss possibility of starting anticoagulation Multilobar Bilateral Consolidations - Atypical PNA vs Pulmonary Edema: - Patient on levaquin IV - Patient has only had a dry cough and has been afebrile with no WCC. CT read as having groundglass and consolidative opacities. - Patient could have atypical pneumonia but considering lack of systemic symptoms, afebrile and no WCC I think this is highly unlikely. I think it would be reasonable to stop antibiotics but I will talk to Dr. Wilcox before doing so HTN: - HCTZ/Lisinopril 1 tab daily - Will add BB tomorrow with patients history of afib and HOCM DVT Prophylaxis: Heparin gtt Code Status: FULL RESUSCITATION Disposition: - Consideration for NOAC - will need cost check to assess affordability Resident Physician Supervision Note: I interviewed and examined the patient. Discussed with Dr. Rothman and agree with findings and plan as documented in the note. Any exceptions or clarifications are listed here: None Documented By: Abdiel Wilcox afib w RVR and elevated troponin possibly demand ischemia - now rate controlled , will need anticoagulation - thinking probably NOAC. for stress later since trop ?demand ischemia just from afib vs also concomitant CAD stable Continued [facility] stay due to: multiple IV medications needed
[2017-05-10] MEDS ORDERED: CEFTRIAXONE SOD INJ 1 GM in DEXTROSE 5% ADD-VANTAGE 50ML 50 ML IV SCH (15:00)
[2017-05-10] MEDS ORDERED: LEVOFLOXACIN 750 MG TAB PO SCH (18:00)
--- NOTE | 2017-05-10 20:36 | ECHOCARDIOGRAM REPORT ---
*NOTICE TO RECEIVING REPUBLICAN AGENCY This information is strictly Confidential and protected under [place] law. [place] law prohibits you from making any further disclosure of this information unless further disclosure is expressly permitted by the written consent of the person to whom it pertains or is authorized by law. A general authorization for the release of medical or other information is not sufficient for this purpose. Hospital accepts no responsibility if the information is made available to any other person, INCLUDING THE PATIENT. Interpretation Summary * Name: ANDREA FUENTES Study Date: 05/10/2017 06:58 AM BP: 152/68 mmHg * Patient Location: C.2E\S\E210\S\1 HR: 81 * : 1955 (M/d/yyyy) Gender: Female Height: 60 in * Age: 62 yrs Ethnicity: DE Weight: 275 lb * Ordering Physician: Seble Castaneda * Referring Physician: Self, Referred * Performed By: Yuni Amanda RDCS * * Reason For Study: AFIB * BSA: 2.1 m2 * Severe concentric left ventricular hypertrophyexcept for more disproportionate thickening of the basal septum. * Hyperdynamic left ventricular systolic function. * Left ventricular diastolic dysfunction. * Mild left ventricular outflow tract obstruction. * Trace mitral and tricuspid regurgitation. * -- Conclusions -- * Aortic valve sclerosis mild, without significant aortic valvular stenosis. Procedure Details * A contrast injection of Definity was performed to improve assessment of LV function. * Contrast was injected into an intravenous site in the left arm. * One vial of Definity ultrasound contrast was diluted in normal saline to a total volume of 10 ml. A total of '2' ml of solution was administered during imaging. * Lot # [id number] of Definity utilized for procedure. * Expiration date JUN 17. * The attending nurse who injected the contrast agent was JEANNE SCHWARZ RN. Left Ventricle * The left ventricle is normal in size. * There is severe concentric left ventricular hypertrophy. * More prominent thickening of the basal septum. * Ejection Fraction = >70 %. * Left ventricular systolic function is normal. * Diastolic dysfunction, Grade II (pseudonormalization pattern). * No regional wall motion abnormalities noted. Right Ventricle * The right ventricle is normal in size and function. Atria * The left atrial size is normal. * Right atrial size is normal. * No ASD detected; PFO is not assessed. Mitral Valve * There is mild mitral annular calcification. * There is no mitral valve stenosis. * There is trace mitral regurgitation. Tricuspid Valve * The tricuspid valve is not well visualized, but is grossly normal. * There is no tricuspid stenosis. * There is trace tricuspid regurgitation. Aortic Valve * The aortic valve is trileaflet. * The aortic valve opens well. * Aortic valve sclerosis mild, without significant aortic valvular stenosis. * Aortic stenosis is absent. * Dimensionless aortic valve index 0.74. Mild LV outflow tract obstruction. * There is no significant aortic regurgitation. Pulmonic Valve * The pulmonic valve is not well seen, but is grossly normal. * Pulmonic stenosis is absent. * There is no pulmonic valvular stenosis. * There is no pulmonic valvular regurgitation. Great Vessels * The aortic root is normal size. Pericardium/Pleural * There is no pericardial effusion. MMode 2D Measurements and Calculations IVSd 2.0 cm IVSs 2.4 cm LVIDd 3.7 cm LVIDs 2.4 cm LVPWd 1.9 cm LVPWs 1.9 cm IVS/LVPW 1.1 FS 35.8 % EDV(Teich) 59.3 ml ESV(Teich) 20.1 ml EF(Teich) 66.1 % EDV(cubed) 52.0 ml ESV(cubed) 13.8 ml EF(cubed) 73.5 % % IVS thick 20.0 % % LVPW thick 0.89 % LV mass(C)d 334.8 grams LV mass(C)dI 156.7 grams/m\S\2 LV mass(C)s 247.8 grams LV mass(C)sI 115.9 grams/m\S\2 SV(Teich) 39.2 ml SI(Teich) 18.4 ml/m\S\2 SV(cubed) 38.2 ml SI(cubed) 17.9 ml/m\S\2 LA dimension 3.8 cm LVAd ap4 30.7 cm\S\2 LVLd ap4 8.2 cm EDV(MOD-sp4) 95.1 ml EDV(sp4-el) 97.5 ml LVAs ap4 16.4 cm\S\2 LVLs ap4 6.5 cm ESV(MOD-sp4) 34.3 ml ESV(sp4-el) 34.9 ml EF(MOD-sp4) 64.0 % EF(sp4-el) 64.2 % LVAd ap2 36.4 cm\S\2 LVLd ap2 9.0 cm EDV(MOD-sp2) 124.9 ml EDV(sp2-el) 125.5 ml LVAs ap2 18.6 cm\S\2 LVLs ap2 7.1 cm ESV(MOD-sp2) 42.2 ml ESV(sp2-el) 41.6 ml EF(MOD-sp2) 66.3 % EF(sp2-el) 66.8 % LVLd %diff 8.8 % EDV(MOD-bp) 113.6 ml LVLs %diff 7.6 % ESV(MOD-bp) 39.8 ml EF(MOD-bp) 64.9 % SV(MOD-sp4) 60.8 ml SI(MOD-sp4) 28.5 ml/m\S\2 SV(MOD-sp2) 82.8 ml SI(MOD-sp2) 38.7 ml/m\S\2 SV(MOD-bp) 73.8 ml SI(MOD-bp) 34.5 ml/m\S\2 SV(sp4-el) 62.6 ml SI(sp4-el) 29.3 ml/m\S\2 SV(sp2-el) 83.9 ml SI(sp2-el) 39.3 ml/m\S\2 Doppler Measurements and Calculations MV E max arabella 145.3 cm/sec MV A max arabella 128.9 cm/sec MV E/A 1.1 MV dec time 0.26 sec Ao V2 max 228.0 cm/sec Ao max PG 20.8 mmHg Ao max PG (full) 5.4 mmHg Ao V2 mean 168.3 cm/sec Ao mean PG 12.4 mmHg Ao V2 VTI 51.6 cm LV V1 max PG 15.4 mmHg LV V1 max 196.2 cm/sec
[2017-05-11] VITALS (7 sets, daily range): BP systolic 119–162; BP diastolic 45–70; PULSE 69–85; TEMP 36.5–36.8; O2SAT 94–98
[2017-05-11] MEDS: HEPARIN 25,000 UNIT/500ML D5W 500 ML IV PRN (01:48)
[2017-05-11 06:07] LABS: HEMATOCRIT 40.8 % (37-47); MEAN CELL VOLUME 92.5 fL (80-100); MEAN CORPUSCULAR HEMOGLOBIN 29.9 pg (25-34); MEAN CORPUSCULAR HGB CONC 32.4 g/dl (32-36); MEAN PLATELET VOLUME 10.2 fL (7.4-10.4); PLATELET COUNT 302 K/uL (130-400); RED BLOOD COUNT 4.41 M/uL (4.2-5.4); WHITE BLOOD COUNT 7.15 K/uL (4.8-10.8)
[2017-05-11 06:32] LABS: BUN/CREATININE RATIO 17.1 (10-20); CALCIUM 9.2 mg/dl (8.5-10.1); CREATININE 0.62 mg/dl (0.60-1.20); MAGNESIUM 2.1 mg/dl (1.8-2.4)
[2017-05-11] MEDS: PANTOprazole SOD 40 MG TAB PO SCH (07:31)
[2017-05-11] MEDS: LISINOPRIL/HCTZ 20/25MG TAB PO SCH (07:32)
[2017-05-11] MEDS: ALBUT/IPRATROP 3MG/0.5MG NEB 3 ML VIAL INH SCH ×2 (07:38→12:00)
[2017-05-11] MEDS ORDERED: METOPROLOL SUCC 50MG EXT REL TAB PO SCH (09:00)
--- NOTE | 2017-05-11 09:02 | Cardiology Follow-Up ---
Subjective Date of Service: May 11, 2017. Pt evaluation today including: conversation w/ patient, physical exam, lab review, review of studies, review of inpatient medication list History of Present Illness This is a 62-year-old woman who presented to the emergency room with palpitations and chest discomfort on 05/09/2017. She has a background history of hypertension as well as an echocardiogram 08/2016 showing a left ventricular outflow tract gradient which has not been further evaluated. She has no history of palpitations or chest discomfort. She awoke at around 6:30 in the morning to go to the bathroom, felt relatively normal at that time, however after going back to bed had sudden onset of rapid palpitations and chest and back discomfort. She thinks the back discomfort may been there to certain extent the evening before but without the palpitations. She felt that she might be having a heart attack so she came to the emergency room where she was noted to be in atrial fibrillation with a rapid ventricular response. She was treated with intravenous diltiazem (although did not have a lot of rate control based on telemetry records) but the arrhythmia terminated spontaneously at around 11:30 AM, therefore she was in it for about 5 hours. She immediately felt better and was aware of the conversion. She is quite adamant that she has never had these symptoms before. Her cardiac enzymes did elevate somewhat following admission, they were normal on admission however peaked at 1.2 on the second set and then drop back to 0.9 on the third set. Her admission electrocardiogram showed rapid atrial fibrillation with lateral ST depression, following conversion the ST depression normalized. She denies having exertional chest discomfort prior to this, although she is troubled by her arthritis and is obese and is not very active. She has been treated for hypertension and has been an VINCE inhibitor, she has not been on a beta pau. Since conversion back to sinus rhythm she has felt well and has had no recurrence of her chest discomfort or her palpitations. She was placed on oral diltiazem which she received yesterday morning. This morning she was started on metoprolol succinate 100 mg daily. She has chronic mild left leg edema which has not been worsening, she has no shortness of breath. We scheduled a stress test for evaluation of her positive enzymes, because of her elevated troponin a Lexiscan Cardiolite was chosen. That should be scheduled for today. She did have an echocardiogram performed. She has had no further atrial fibrillation. This morning she feels well, has no complaints, no chest discomfort and no palpitations. Social History Smoking Status: Never Smoker History of Alcohol Use: No Review of Systems Respiratory: No cough, No sputum, No shortness of breath Cardiac: No chest pain, No edema, No palpitations Medications Cardiovascular: Item Value Date Time Metoprolol 100 mg 05/11/17 0900 Succinate QAM/PO 05/11/17 0732 (Toprol Xl Tab) HCTZ/Lisinopril 1 tab 05/10/17 0900 (Prinzide DAILY/PO 05/11/17 0732 20-25MG Tab) Heparin Sodium/ 500 ml @ 28 mls/hr 05/09/17 1730 Dextrose .[id number] PRN/IV 05/11/17 0148 Objective Vital Signs Past 12 Hours Date Time Temp Pulse Resp B/P (MAP) Pulse Ox O2 Delivery O2 Flow Rate FiO2 05/11/17 08:03 36.8 72 18 162/66 (98) 97 05/11/17 08:00 Room Air 05/11/17 07:38 77 18 98 Room Air 05/11/17 04:20 36.8 74 17 141/54 (83) 96 05/11/17 04:00 Room Air 05/11/17 00:00 Room Air 05/11/17 00:00 36.6 85 18 119/70 (86) 95 Room Air Last Recorded Weight-Kilograms: 121.500 Physical Exam Constitutional: General Apperance: heathly-appearing Level of Distress: NAD Lungs: Respiratory effort: no dyspnea, good air movement Auscultation: breath sounds normal, no wheezing Cardiovascular: Heart Auscultation: RRR, no rubs, no gallops, II/ KRIS Peripheral Pulses: Bruits: none appreciated Extremities: edema (+1 edema of the left leg only) Data Laboratory Results: Last 24 Hours Test 05/11/17 05:46 White Blood Count 7.15 K/uL Red Blood Count 4.41 M/uL Hemoglobin 13.2 g/dL Hematocrit 40.8 % Mean Corpuscular Volume 92.5 fL Mean Corpuscular Hemoglobin 29.9 pg Mean Corpuscular Hemoglobin Concent 32.4 g/dl RDW Standard Deviation 48.8 fL RDW Coefficient of Variation 14.3 % Platelet Count 302 K/uL Mean Platelet Volume 10.2 fL Activated Partial Thromboplast Time 52.4 SECONDS Partial Thromboplastin Ratio 2.0 Sodium Level 142 mmol/L Potassium Level 4.0 mmol/L Chloride Level 106 mmol/L Carbon Dioxide Level 28 mmol/L Anion Gap 8.0 mmol/L Blood Urea Nitrogen 11 mg/dl Creatinine 0.62 mg/dl Est Creatinine Clear Calc Drug Dose 115.6 ml/min Estimated GFR () 113.6 Estimated GFR (Non- 98.0 BUN/Creatinine Ratio 17.1 Random Glucose 99 mg/dl Calcium Level 9.2 mg/dl Magnesium Level 2.1 mg/dl Imaging: Echocardiography done on 05/10/2017 shows severe concentric left ventricular hypertrophy with disproportionate thickening of the basal septum, with mild left ventricular outflow tract obstruction. She also has mild aortic sclerosis. EKG: Electrocardiography this morning demonstrates sinus rhythm with one premature atrial beat and is essentially normal area Telemetry reviewed: Sinus rhythm with PACs, no atrial fibrillation since shortly after admission. Assessment and Plan 1. AF: Evidently started around 0630 05/09/2017, ended spontaneously around 1130 the same day (5 hours). It was very obvious to her, associated with CP and palpitations. It is not likely she had it before or that it was longer in duration. The role of anticoagulation not clear at this time, would probably stop heparin but it may be worthwhile to place her on long-term anticoagulation. With this brief episode it may not be necessary, but there appears to be no reversible cause and it may be related to her diastolic dysfunction and her cardiomyopathy, in which case she will be more prone to it in the future and her chads score does justify it. Should be on beta blockade not calcium pau, now on metoprolol succinate 100 mg daily. 2. Chest pain: She may have CAD, she did have positive troponins but the pattern and lack of electrical graphic changes suggests demand ischemia which can be seen with normal coronaries but may indicate coronary artery disease. Should get stress test which is scheduled for today. It may be helpful to see what happens to her left ventricular outflow tract gradient with exercise as well, this can be scheduled at a later date however. 3. HOCM: Documented on echo in August 2016, as well as audible on exam. Based on her current echo reported probably has not changed much. Should have beta blockade as well as good blood pressure control to minimize progression, no other Rx for now. 4. HBP: Would use beta blockade (because of HOCM and AF). I would gradually titrate to metoprolol succinate 200 mg daily if she tolerates it, and then continue Vince inhibitors if her blood pressure requires it, if her blood pressure does not require it I would drop back on the VINCE inhibitor. Thank you for allowing me to participate in her care.
[2017-05-11] MEDS ORDERED: REGADENOSON 0.4 MG/5 ML SYR ONE (09:06)
[2017-05-11] MEDS ORDERED: TPRSR50 PO (14:15)
--- NOTE | 2017-05-11 14:19 | Discharge Instructions ---
Discharge Instructions Date of Service May 11, 2017. Admission Reason for Admission: Atrial Fibrillation With Rapid Ventricular Respons Discharge Discharge Diagnosis / Problem: Atrial fibrillation Discharge Goals Goal(s): Improve function, Learn about illness, Prevent Disease Progression Activity Recommendations Activity Limitations: per Instructions/Follow-up section . Instructions / Follow-Up Instructions / Follow-Up You were diagnosed with atrial fibrillation in the hospital We will be sending you home with a prescription for metoprolol and xarelto. Please pick these up at the pharmacy. You will need to follow up with Dr. Solis next week. Please follow up with your PCP next week. If you have any worsening chest pain, shortness of breath or palpitations then please come back to the hospital Current Hospital Diet Patient's current hospital diet: AHA Diet (Heart Healthy) Discharge Diet Recommended Diet: Regular Diet Pending Studies Studies pending at discharge: no Medical Emergencies . Who to Call and When: Medical Emergencies: If at any time you feel your situation is an emergency, please call 911 immediately. . Non-Emergent Contact Non-Emergency issues call your: Primary Care Provider, Willow Analyst . . "Provider Documentation" section prepared by Dillon Rothman. . VTE Core Measure Inpt VTE Proph given/why not?: Other Anticoagulation (Heparin gtt)
--- NOTE | 2017-05-11 16:03 | Myocardial Perfusion Study ---
Myocardial Perfusion Study Rpt Myocardial Perfusion Study Rpt Date of Service May 11, 2017 Myocardial Perfusion Study Rpt ONE DAY NUCLEAR MEDICINE TECHNETIUM 99 M CARDIOLITE MYOCARDIAL PERFUSION SCAN CLINICAL HISTORY The patient has a known hypertrophic cardiomyopathy, abnormal EKG, and elevated troponin levels. COMPARISON None TECHNIQUE For the stress portion of the study, 32.0 mCi of technetium 99 M Cardiolite IV was injected at 12:30 p.m. on May 11, 2017. 30 minutes following the injection , imaging of the heart was performed in multiple projections. For the rest portion of the study, 10.4 mCi of technetium 99 M Cardiolite was injected intravenously at 10:35 a.m. 1 hour following the injection, imaging of the heart was performed in the same projections. For the stress portion of the study, 0.4 mg of Lexiscan was injected intravenously as per protocol. Baseline EKG noted normal sinus rhythm with a left axis deviation and left ventricular hypertrophy with repolarization changes. There are no additional changes seen with the infusion. The patient did not experience Lexiscan induced chest discomfort, however, she did note some dyspnea. Blood pressure heart rate remained stable. Following the study, patient was hemodynamically stable and without complaints. FINDINGS The short axis, vertical long axis, horizontal long axis images reviewed in detail. There is a small defect noted in the distal anteroseptum present only at rest. The rotating images suggest that this represents breast attenuation. The stress images show normal myocardial perfusion Joseph excluding stress- induced myocardial ischemia or a prior myocardial infarction. The left ventricle demonstrates hyperdynamic systolic function without wall motion abnormalities. An estimated left ventricular ejection fraction is greater than 70%. IMPRESSION 1. No scintigraphic evidence of a myocardial infarction or stress-induced myocardial ischemia 2. No Lexiscan induced chest pain. Next month 3. No Lexiscan induced EKG changes. 4. Hyperdynamic left ventricular systolic function without wall motion abnormality. Ejection fraction is greater than 70%
[2017-05-11] MEDS ORDERED: RIVA1TAB4 PO (16:17)
--- NOTE | 2017-05-11 17:28 | Discharge Summary ---
Discharge Summary Date of Service May 11, 2017. (Dillon Rothman MD) Discharge Summary Admission Date: May 09, 2017 at 14:49 Discharge Date: May 11, 2017 Discharge Disposition: Home Principal Diagnosis: Atrial fibrillation Consultations: Cardiology (Dillon Rothman MD) Medication Reconciliation New Medications: Rivaroxaban (Xarelto) 20 Mg Tab 1 TAB PO DAILY for 30 Days, #30 TAB 3 Refills Metoprolol Succinate (Metoprolol Succinate ER) 50 Mg Tabcr 100 MG PO QAM for 30 Days, #60 TAB Continued Medications: Calcium Carbonate-Vitamin D (Calcium 600+D) 1 Tab Tab 1 TAB PO BID Cholecalciferol (Vitamin D3) 1,000 Inter.unit Tab 2000 INTER.UNIT PO DAILY Hctz/Lisinopril (Lisinopril/Hctz 20/25 Mg) 1 Ea Tab 1 TAB PO DAILY Lansoprazole (Prevacid) 30 Mg Capcr 30 MG PO DAILY, CAP Discharge Exam Patient comfortable and sitting at the side of the bed Asked many questions about anticoagulation. Answered them to the best of my ability. Review of Systems: Constitutional: No fever, No chills Respiratory: No cough, No sputum, No shortness of breath Cardiovascular: No chest pain, No edema, No palpitations Abdomen: No pain, No nausea, No vomiting Musculoskeletal: No joint pain, No muscle pain Physical Exam: General Appearance: WD/WN, no apparent distress, + obese Respiratory/Chest: lungs clear, no respiratory distress, no accessory muscle use Cardiovascular: regular rate, rhythm, no JVD, normal peripheral pulses, + systolic murmur (3/6 radiate to carotids) Abdomen / GI: normal bowel sounds, non tender, soft Extremities: normal range of motion, non-tender, + pedal edema (+1 edema to mid lechuga) Neurologic/Psychiatric: no motor/sensory deficits, normal mood/affect, oriented x 3 (Dillon Rothman MD) Hospital Course This is a 62-year-old woman who presented to the emergency room with palpitations and chest discomfort on 05/09/2017. She has a background history of hypertension as well as an echocardiogram done earlier this year showing a left ventricular outflow tract gradient which has not been further evaluated. She awoke at around 6:30 in the morning to go to the bathroom, felt relatively normal at that time, however after going back to bed had sudden onset of rapid palpitations and chest and back discomfort. She felt that she might be having a heart attack so she came to the emergency room where she was noted to be in atrial fibrillation with a rapid ventricular response. She was treated with intravenous diltiazem (although did not have a lot of rate control based on telemetry records) but the arrhythmia terminated spontaneously at around 11:30 AM, therefore she was in it for about 5 hours. She immediately felt better and was aware of the conversion. Her cardiac enzymes did elevate somewhat following admission, they were normal on admission however peaked at 1.2 on the second set and then drop back to 0.9 on the third set. Her admission electrocardiogram showed rapid atrial fibrillation with lateral ST depression, following conversion the ST depression normalized. She denies having exertional chest discomfort prior to this, although she is troubled by her arthritis and is obese and is not reactive. Since conversion back to sinus rhythm she felt well and had no recurrence of her chest discomfort or her palpitations. She was placed on oral diltiazem. She had an echo done which showed a severe concentric left ventricular hypertrophy except for more disproportionate thickening of the basal septum and grade 2 diastolic dysfunction. Due to the initial elevation of troponins it was decided to send the patient for a stress echo which returned with no evidence of a wall motion abnormality. Patient was discharged on metoprolol and xarelto and is to follow up with Dr. Solis in his clinic. Patient will also be follow up with her PCP. Total Time Spent: Less than 30 minutes This includes examination of the patient, discharge planning, medication reconciliation, and communication with other providers. (Dillon Rothman MD) Resident Physician Supervision Note: I interviewed and examined the patient. Discussed with Dr. Rothman and agree with findings and plan as documented in the note. 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 septal asymmetric hypertrophy fortunately does not appear to be causing outflow obstruction. metoprolol. elevated troponin - w stress being negative for ischemic changes, seems most likely that this was all demand ischemia from afib mediated tachycardia w her LVH stable for home (Abdiel Wilcox D.O.) Discharge Instructions Please refer to the electronic Patient Visit Report (Discharge Instructions) for additional information. (Dillon Rothman MD) Additional Copies To Munir Solis M.D.; Jennifer Mendez,P.A.
== END 2017-05-11 17:19 | disposition home or self-care (01) | DRG 308 ==
LOC: EDBD 10:24 → C.EDB 10:26 → C.2E 14:49 → ENRESERV 15:18
PROVIDERS: ADMIT Family Medicine; ATTEND Family Medicine
DX: I48.91 Unspecified atrial fibrillation (principal); J96.01 Acute respiratory failure with hypoxia; Z68.43 Body mass index [BMI] 50.0-59.9, adult; J81.1 Chronic pulmonary edema; R79.89 Other specified abnormal findings of blood chemistry; E66.9 Obesity, unspecified; K21.9 Gastro-esophageal reflux disease without esophagitis; R07.9 Chest pain, unspecified; I10 Essential (primary) hypertension; I42.1 Obstructive hypertrophic cardiomyopathy; Z79.899 Other long term (current) drug therapy

== ENCOUNTER → 2017-05-17 | Outpatient (CLI) | payer BC, OTHER ==
[~2017-05-17] MED LIST changes: +LSN/2025 PO; +RIVA1TAB4 PO; +TPRSR50 PO
== END | disposition home or self-care (01) ==
LOC: C.LABBFT 12:17
PROVIDERS: ATTEND Physician Assistant Medical
DX: L60.9 Nail disorder, unspecified (principal)

== ENCOUNTER → 2017-08-29 | Outpatient (CLI) | payer BC, OTHER ==
--- NOTE | 2017-08-30 07:25 | MAMMOGRAPHY REPORT ---
BILATERAL DIGITAL SCREENING MAMMOGRAM TOMOSYNTHESIS WITH CAD: 08/29/2017 CLINICAL HISTORY: Routine screening. Patient has no complaints. TECHNIQUE: Breast tomosynthesis in addition to standard 2D mammography was performed. Current study was also evaluated with a Computer Aided Detection (CAD) system. COMPARISON: Comparison is made to exams dated: 08/27/2016 mammogram, 07/08/2015 mammogram, 10/02/2013 m ammogram, 09/29/2012 mammogram, 06/11/2011 mammogram - [facility], and 04/09/2008. BREAST COMPOSITION: There are scattered areas of fibroglandular density in both breasts. FINDINGS: There are mild vascular calcifications in both breasts. No suspicious mass, architectural distortion or cluster of microcalcifications is seen. IMPRESSION: ACR BI-RADS CATEGORY 2: BENIGN There is no mammographic evidence of malignancy. A 1 year screening mammogram is recommended. The pa tient will receive written notification of the results. Approximately 10% of breast cancers are not detected with mammography. A negative mammographic report should not delay biopsy if a clinically suggestive mass is present. Stephany Solis M.D. ay/:08/29/2017 15:13:48 Division Field Inspector: Doris FREEMAN(Marco Antonio)([place]), [facility] letter sent: Normal 1/2 BI-RADS Code: ACR BI-RADS Category 2: Benign
== END | disposition home or self-care (01) ==
LOC: C.MAMM 09:44
PROVIDERS: ATTEND Physician Assistant Medical
DX: Z12.31 Encounter for screening mammogram for malignant neoplasm of breast (principal)

== ENCOUNTER → 2017-08-29 | Outpatient (CLI) | payer BC, OTHER ==
[2017-08-29 11:27] LABS: ALT/SGPT 19 U/L (12-78); BLOOD UREA NITROGEN 12 mg/dl (7-18); BUN/CREATININE RATIO 19.4 (10-20); CALCIUM 9.1 mg/dl (8.5-10.1); CARBON DIOXIDE 29 mmol/L (21-32); CHLORIDE 105 mmol/L (98-107); CHOLESTEROL 169 mg/dl (0-200); CREATININE 0.59 mg/dl (0.60-1.20); GLUCOSE 91 mg/dl (70-99); POTASSIUM 3.7 mmol/L (3.5-5.1); SODIUM 139 mmol/L (136-145); TRIGLYCERIDES 92 mg/dl (0-150); VERY LOW DENSITY LIPOPROT CALC 18 mg/dl
[2017-08-29 11:30] LABS: ALKALINE PHOSPHATASE 57 U/L (45-117); AST/SGOT 12 U/L (15-37); CHOLESTEROL/HDL RATIO 3.9; HDL CHOLESTEROL 43 mg/dl; LDL CHOLESTEROL CALCULATED 108 mg/dl
== END | disposition home or self-care (01) ==
LOC: C.LAB1850 09:29
PROVIDERS: ATTEND Nurse Practitioner
DX: Z00.00 Encounter for general adult medical examination without abnormal findings (principal); I10 Essential (primary) hypertension; E78.5 Hyperlipidemia, unspecified; E55.9 Vitamin D deficiency, unspecified

== ENCOUNTER 2017-11-13 10:57 | Inpatient (IN) | payer OTHER ==
[~2017-11-13] VITALS: Ht 152.4 cm; Wt 115.8 kg
[2017-11-13 03:30] VITALS: BP 113/73; PULSE 76; TEMP 36.7; O2SAT 94
[~2017-11-13 10:57] MED LIST changes: +METO100T44 PO; -TPRSR50 PO
[2017-11-13 11:38] LABS: BASO % 0.2 %; BASO ABS # 0.01 K/uL (0-0.2); EOS % 0.6 %; EOS ABS # 0.03 K/uL (0-0.5); HEMATOCRIT 44.6 % (37-47); HEMOGLOBIN 15.2 g/dL (12.0-16.0); IG# 0.01 K/uL (0.00-0.02); LYMPH % 37.8 %; LYMPH ABS # 1.93 K/uL (1.2-3.4); MEAN CORPUSCULAR HEMOGLOBIN 31.3 pg (25-34); MEAN CORPUSCULAR HGB CONC 34.1 g/dl (32-36); MEAN PLATELET VOLUME 10.4 fL (7.4-10.4); MONO % 8.2 %; MONO ABS # 0.42 K/uL (0.11-0.59); NEUT ABS # 2.71 K/uL (1.4-6.5); PLATELET COUNT 236 K/uL (130-400); RED CELL DISTRIBUTION WIDTH CV 13.7 % (11.5-14.5); RED CELL DISTRIBUTION WIDTH SD 46.4 fL (36.4-46.3); WHITE BLOOD COUNT 5.11 K/uL (4.8-10.8)
[2017-11-13] MEDS ORDERED: ASPIRIN 324 MG CHEW PO STA (11:40)
[2017-11-13] MEDS ORDERED: METOPROLOL TARTRATE 1 MG/ML VIAL IV STA ×2 (11:40→12:52)
[2017-11-13 11:42] LABS: INR 1.2 (0.9-1.1); PTT PATIENT 33.6 SECONDS (21.0-31.0)
[2017-11-13] MEDS ORDERED: DIGOXIN IV 250 MCG in SYRINGE 9 ML IV ONE ×2 (11:45→14:00)
[2017-11-13 11:51] LABS: ISTAT CREATININE 0.7 mg/dl (0.6-1.3); ISTAT IONIZED CALCIUM 1.1 mmol/l (1.12-1.32); ISTAT POTASSIUM 3.9 mEq/L (3.3-5.0)
[2017-11-13 11:52] LABS: ALBUMIN 3.4 gm/dl (3.4-5.0); ALT/SGPT 27 U/L (12-78); AST/SGOT 25 U/L (15-37); BLOOD UREA NITROGEN 21 mg/dl (7-18); CALCIUM 9.4 mg/dl (8.5-10.1); CARBON DIOXIDE 26 mmol/L (21-32); GLUCOSE 115 mg/dl (70-99); LIPASE 267 U/L (73-393); POTASSIUM 3.2 mmol/L (3.5-5.1); SODIUM 137 mmol/L (136-145)
[2017-11-13 12:13] LABS: ALKALINE PHOSPHATASE 46 U/L (45-117); PHOSPHORUS 3.6 mg/dl (2.5-4.9); TOTAL PROTEIN 7.3 gm/dl (6.4-8.2)
--- NOTE | 2017-11-13 12:22 | DIAGNOSTIC IMAGING REPORT ---
CHEST ONE VIEW PORTABLE HISTORY: Atypical CHEST PAIN COMPARISON: Chest 05/09/2017. FINDINGS: No pneumothorax. No pleural effusions. The heart remains mildly enlarged. Diffuse interstitial and vascular thickening, unchanged. No new focal lung consolidations. IMPRESSION: No change in the cardiomegaly and mild congestive change/edema. Electronically signed by: Sung Smyth M.D. 11/13/2017 12:21 PM Dictated Date/Time: 11/13/2017 12:19 PM
[2017-11-13] MEDS ORDERED: MAGNESIUM HYDROXIDE SUSP 30 ML UDC PO PRN (13:30)
[2017-11-13] MEDS ORDERED: POLYETHYLENE (MIRALAX) 17 GM PACK PO PRN (13:30)
[2017-11-13] MEDS ORDERED: ONDANSETRON INJ 2 MG/ML 2 ML VIAL IV PRN (13:30)
[2017-11-13] MEDS ORDERED: MoRPHine SULFATE 2 MG/ML CARP IV PRN (13:30)
[2017-11-13] MEDS ORDERED: METOPROLOL TARTRATE 1 MG/ML VIAL IV PRN (13:30)
[2017-11-13] MEDS ORDERED: ALUMINUM/MAGNESIUM/SIMETH (MAALOX MAX) 30 ML UDC PO PRN (13:30)
[2017-11-13] MEDS ORDERED: ACETAMINOPHEN 325 MG TAB PO PRN (13:30)
[2017-11-13] MEDS ORDERED: POTASSIUM CHLORIDE 10 MEQ TABCR PO ONE (13:30)
--- NOTE | 2017-11-13 13:35 | History and Physical ---
History & Physical Date & Time of Service: Nov 13, 2017 at 13:22 Chief Complaint: Chest Pressure Primary Care Physician: Jessica Valadez C.RShiraNShiraPShira History of Present Illness Source: patient, family ( ), clinic records, hospital records Patient is a pleasant 62 y/o female, with PMHx of paroxysmal a.fib, HTN, and GERD, who presented to the ED with complaints of centralized chest pressure. Discomfort did not radiate. No alleviating/aggravating factors. +nausea prior to arrival. She does have a h/o a.fib w/ RVR- she presented in April 2017 with similar symptoms. When presenting to ED today, patient was found to be in a.fib w/ RVR (HR >150) and hypotensive at 65/47. ED physician spoke w/ Dr. Woodard who instructed IV Metoprolol + Digoxin- rates improved to 120-130s and BP at 112/ 72. Patient did take all of her medications this AM. Patient denies any fever, chills, sweats, lightheadedness, dizziness, vision changes, palpitations, edema , SOB, wheezing, cough, abdominal pain, vomiting, diarrhea, urinary symptoms, melena, numbness/tingling, weakness, muscle/joint pain, anxiety/depression, active bleeding, or new skin discoloration/changes. Past Medical/Surgical History Medical Problems: Paroxysmal a.fib HTN GERD Family History Diabetes mellitus MOTHER, SISTER, No significant family history Pancreatic Cancer SISTER, Stroke FATHER Social History Smoking Status: Never Smoker Drug Use: none Marital Status: Occupational Status: unemployed Multi-Drug Resistant Organisms History of MDRO: No Allergies Coded Allergies: No Known Allergies (Unverified , 11/13/17) Home Medications Scheduled Calcium Carbonate-Vitamin D (Calcium 600+D), 1 TAB PO BID Cholecalciferol (Vitamin D3), 2,000 INTER.UNIT PO DAILY Hctz/Lisinopril (Lisinopril/Hctz 20/25 Mg), 1 TAB PO QAM Lansoprazole (Prevacid), 30 MG PO QAM Metoprolol Succ (Toprol Xl) (Toprol-Xl ), 100 MG PO QAM Rivaroxaban (Xarelto), 20 MG PO QAM Physical Exam Vital Signs Date Time Temp Pulse Resp B/P (MAP) Pulse Ox O2 Delivery O2 Flow Rate FiO2 11/13/17 13:16 122 18 112/72 98 2.0 11/13/17 13:15 125 112/72 11/13/17 12:34 134 20 102/75 94 Nasal Cannula 2.0 11/13/17 12:25 145 84/68 96 Nasal Cannula 3.0 11/13/17 12:14 135 73/60 94 Room Air 11/13/17 12:13 139 11/13/17 12:00 150 20 53/36 93 Nasal Cannula 3.0 11/13/17 11:56 140 97/61 11/13/17 11:45 134 11/13/17 11:06 36.1 153 20 65/47 95 Nasal Cannula 3.0 General Appearance: no apparent distress, + obese, + pertinent finding (O2 NC ) Head: normocephalic, atraumatic Eyes: normal inspection, PERRL ENT: hearing grossly normal Neck: supple Respiratory/Chest: lungs clear, no respiratory distress, no accessory muscle use Cardiovascular: + tachycardia, + systolic murmur, + irregularly irregular Abdomen/GI: normal bowel sounds, non tender, soft Back: normal inspection Extremities/Musculoskelatal: no calf tenderness, no pedal edema Neurologic/Psych: alert, normal mood/affect, oriented x 3 Skin: normal color, warm/dry, no rash Diagnostics Laboratory Results Results Past 24 Hours Test 11/13/17 11:15 11/13/17 11:40 Range/Units White Blood Count 5.11 4.8-10.8 K/uL Red Blood Count 4.85 4.2-5.4 M/uL Hemoglobin 15.2 12.0-16.0 g/dL Hematocrit 44.6 37-47 % Mean Corpuscular Volume 92.0 80-100 fL Mean Corpuscular Hemoglobin 31.3 25-34 pg Mean Corpuscular Hemoglobin Concent 34.1 32-36 g/dl Platelet Count 236 130-400 K/uL Mean Platelet Volume 10.4 7.4-10.4 fL Neutrophils (%) (Auto) 53.0 % Lymphocytes (%) (Auto) 37.8 % Monocytes (%) (Auto) 8.2 % Eosinophils (%) (Auto) 0.6 % Basophils (%) (Auto) 0.2 % Neutrophils # (Auto) 2.71 1.4-6.5 K/uL Lymphocytes # (Auto) 1.93 1.2-3.4 K/uL Monocytes # (Auto) 0.42 0.11-0.59 K/uL Eosinophils # (Auto) 0.03 0-0.5 K/uL Basophils # (Auto) 0.01 0-0.2 K/uL RDW Standard Deviation 46.4 36.4-46.3 fL RDW Coefficient of Variation 13.7 11.5-14.5 % Immature Granulocyte % (Auto) 0.2 % Immature Granulocyte # (Auto) 0.01 0.00-0.02 K/uL Prothrombin Time 12.1 9.0-12.0 SECONDS Prothromb Time International Ratio 1.2 0.9-1.1 Activated Partial Thromboplast Time 33.6 21.0-31.0 SECONDS Partial Thromboplastin Ratio 1.3 Sodium Level 137 136-145 mmol/L Potassium Level 3.2 3.5-5.1 mmol/L Chloride Level 101 98-107 mmol/L Carbon Dioxide Level 26 21-32 mmol/L Anion Gap 10.0 17.0 16-25 mmol/L Blood Urea Nitrogen 21 7-18 mg/dl Creatinine 0.80 0.60-1.20 mg/dl Est Creatinine Clear Calc Drug Dose 88.9 ml/min Estimated GFR () 92.9 Estimated GFR (Non- 80.1 BUN/Creatinine Ratio 26.5 10-20 Random Glucose 115 70-99 mg/dl Calcium Level 9.4 8.5-10.1 mg/dl Phosphorus Level 3.6 2.5-4.9 mg/dl Magnesium Level 1.8 1.8-2.4 mg/dl Total Bilirubin 0.6 0.2-1 mg/dl Direct Bilirubin 0.1 0-0.2 mg/dl Aspartate Amino Transf (AST/SGOT) 25 15-37 U/L Alanine Aminotransferase (ALT/SGPT) 27 12-78 U/L Alkaline Phosphatase 46 45-117 U/L Troponin I < 0.015 0-0.045 ng/ml Pro-B-Type Natriuretic Peptide 310 0-900 pg/ml Total Protein 7.3 6.4-8.2 gm/dl Albumin 3.4 3.4-5.0 gm/dl Lipase 267 73-393 U/L Bedside Hemoglobin 15.3 12.0-16.0 g/dl Bedside Hematocrit 45 37-47 % Bedside Sodium 140 135-144 mEq/L Bedside Potassium 3.9 3.3-5.0 mEq/L Bedside Chloride 99 101-112 mEq/L Bedside Total CO2 29 24-31 mEq/l Bedside Blood Urea Nitrogen 29 7-18 mg/dl Bedside Creatinine 0.7 0.6-1.3 mg/dl Bedside Glucose (other) 119 70-99 mg/dl Bedside Ionized Calcium (Mira) 1.10 1.12-1.32 mmol/l Diagnostic Radiology CHEST ONE VIEW PORTABLE HISTORY: Atypical CHEST PAIN COMPARISON: Chest 05/09/2017. FINDINGS: No pneumothorax. No pleural effusions. The heart remains mildly enlarged. Diffuse interstitial and vascular thickening, unchanged. No new focal lung consolidations. IMPRESSION: No change in the cardiomegaly and mild congestive change/edema. Electronically signed by: Sung Smyth M.D. 11/13/2017 12:21 PM Dictated Date/Time: 11/13/2017 12:19 PM The status of this report is Signed. Draft = Not yet reviewed or approved by Radiologist. Signed = Reviewed and approved by Radiologist. EKG GINA ANDREA ID:[id number] 13-NOV-2017 11:03:00 [facility] Atrial fibrillation with rapid ventricular response ST & T wave abnormality, consider lateral ischemia Abnormal ECG When compared with ECG of 11-MAY-2017 07:15, Atrial fibrillation has replaced Sinus rhythm Vent. rate has increased BY [address] now depressed in Inferior leads ST now depressed in Anterolateral leads 25mm/s 10mm/mV 150Hz 8.0 SP2 12SL 241 THAD: 13 Referred by: Unconfirmed Vent. rate 147 BPM MS interval * ms QRS duration 90 ms QT/QTc 322/503 ms P-R-T axes * -9 116 1955 (62 yr) Female Room: Loc:15 Machinery Erector:SONI Tijerina ind: Impression Assessment and Plan Patient is a pleasant 62 y/o female, with PMHx of paroxysmal a.fib, HTN, and GERD, who presented to the ED with complaints of centralized chest pressure. A.fib w/ RVR: - Admit to tele for cardiac monitoring - Trend cardiac enzymes- initial enzymes negative - Follow EKG QAM and PRN for chest pain - Continue Metoprolol 100 mg QAM and IV Metoprolol 5 mg q6 hr PRN for HR >120 - Digoxin 250 mcg x1 dose in ED - Continue Xarelto - Consulted cardiology, appreciate recommendations Hypokalemia at 3.2: KCL 40 mEq PO x1 dose now- follow PRP and replace PRN HTN w/ hypotension in ED secondary to a.fib w/ RVR: Hold HCTZ/Lisinopril GERD: Protonix while inpatient- resume Prevacid at discharge DVT prophylaxis: Xarelto Code Status: LEVEL III, FULL NO MECH VENT Dispo: From home, lives w/ - no discharge needs anticipated Level of Care Telemetry Resuscitation Status FULL NO MECH VENTILATION VTE Prophylaxis VTE Risk Assessment Done? Y/N: Yes Risk Level: Moderate Given or contraindicated: Other Anticoagulation, T.E.D. Stockings, SCD's Reviewed: Pt Seen/Exam by Me History Pt c/o chest pain that started today. She has been fighting a "cold" recently, but otherwise has been doing well. She has not had chest pain recently. She occasionally feels skipped beats, but this is fleeting and she has not noted it recently. Pt is feeling much improved with improved HR control. Agree with HPI/ROS as noted by PA General Appearance: no apparent distress, obese Respiratory: normal breath sounds, no respiratory distress Cardiovascular: normal peripheral pulses, regular rate, rhythm Gastrointestinal: non tender, soft Extremities: non-tender, no pedal edema Neurologic/Psychiatric: alert, normal mood/affect, oriented x 3 Skin Characteristics: normal color, warm/dry Assessment/Plan Agree with plan as outlined above Pt initially presenting in afib with RVR in the 150s. Improved to 120s s/p digoxin loading dose and torpol, however was with no further improvement. Received second dose of digoxin and has now converted to NSR Hx of afib, on xarelto, follows with Dr. Solis
--- NOTE | 2017-11-13 14:47 | EMERGENCY ROOM VISIT NOTE ---
History Report prepared by Goldie: Melina Glover Under the Supervision of: Dr. Ted Bradford M.D. First contact with patient: 11:09 Chief Complaint: CHEST PAIN Stated Complaint: CHEST PRESSURE Nursing Triage Summary: pt reports started with chest pressure at 0900 denies radiation denies NV reports increased sob with exertion reports nausea while using the restroom prior to EMS arrival to home pt denies vomitting History of Present Illness The patient is a 62 year old female with a past medical history of hypertension, esophageal reflux, and atrial fibrillation who presents to the ED with a cc of constant chest pain beginning 2.5 hours ago. She describes the pain as a tightness. Negative recent use of stimulants, cough, fever, chills, shortness of breath, long travel, history of blood clots, nausea, vomiting, leg swelling, and missing any doses of her medication.. Source of History: patient Onset: 2.5 hours ago Position: chest Quality: other (tightness) Timing: constant Associated Symptoms: No fevers, No chills, No cough, No SOB, No nausea, No vomiting Note: The patient denies recent use of stimulants, long travel, history of blood clots , leg swelling, and missing any doses of her medication.. Review of Systems See HPI for pertinent positives and negatives. A total of ten systems were reviewed and were otherwise negative. Past Medical & Surgical Medical Problems: (1) Atrial fibrillation (2) Atrial fibrillation with RVR (3) Esophageal Reflux (4) Hypertension Nos Family History Diabetes mellitus MOTHER, SISTER, No significant family history Pancreatic Cancer SISTER, Stroke FATHER Social History Smoking Status: Never Smoker Drug Use: none Marital Status: Housing Status: lives with family Occupation Status: unemployed Current/Historical Medications Scheduled Calcium Carbonate-Vitamin D (Calcium 600+D), 1 TAB PO BID Cholecalciferol (Vitamin D3), 2,000 INTER.UNIT PO DAILY Hctz/Lisinopril (Lisinopril/Hctz 20/25 Mg), 1 TAB PO QAM Lansoprazole (Prevacid), 30 MG PO QAM Metoprolol Succ (Toprol Xl) (Toprol-Xl ), 100 MG PO QAM Rivaroxaban (Xarelto), 20 MG PO QAM Allergies Coded Allergies: No Known Allergies (Unverified , 11/13/17) Physical Exam Vital Signs Date Time Temp Pulse Resp B/P (MAP) Pulse Ox O2 Delivery O2 Flow Rate FiO2 11/13/17 13:16 122 18 112/72 98 2.0 11/13/17 13:15 125 112/72 11/13/17 12:34 134 20 102/75 94 Nasal Cannula 2.0 11/13/17 12:25 145 84/68 96 Nasal Cannula 3.0 11/13/17 12:14 135 73/60 94 Room Air 11/13/17 12:13 139 11/13/17 12:00 150 20 53/36 93 Nasal Cannula 3.0 11/13/17 11:56 140 97/61 11/13/17 11:45 134 11/13/17 11:06 36.1 153 20 65/47 95 Nasal Cannula 3.0 Physical Exam GENERAL: Awake, alert, well-appearing, NAD HENT: Normocephalic, atraumatic. EYES: Normal conjunctiva. Sclera non-icteric. NECK: Supple. No nuchal rigidity. FROM. RESPIRATORY: Bibasilar crackles. No rhonchi, wheezing, CARDIAC: RRR, no MRG ABDOMEN: Soft, NTND, BS+ MSK: No chest wall TTP, no LE edema NEURO: GCS 15, CN 2-12 intact, moves all 4s on command SKIN: No rash or jaundice noted. Medical Decision & Procedures ER Provider Diagnostic Interpretation: Radiology results as stated below per my review and radiologist interpretation: CHEST ONE VIEW PORTABLE HISTORY: Atypical CHEST PAIN COMPARISON: Chest 05/09/2017. FINDINGS: No pneumothorax. No pleural effusions. The heart remains mildly enlarged. Diffuse interstitial and vascular thickening, unchanged. No new focal lung consolidations. IMPRESSION: No change in the cardiomegaly and mild congestive change/edema. Electronically signed by: Sung Smyth M.D. 11/13/2017 12:21 PM Dictated Date/Time: 11/13/2017 12:19 PM Laboratory Results 11/13/17 11:15 Red Blood Count 4.85, Mean Corpuscular Volume 92.0, Mean Corpuscular Hemoglobin 31.3, Mean Corpuscular Hemoglobin Concent 34.1, Mean Platelet Volume 10.4, Neutrophils (%) (Auto) 53.0, Lymphocytes (%) (Auto) 37.8, Monocytes (%) (Auto) 8.2, Eosinophils (%) (Auto) 0.6, Basophils (%) (Auto) 0.2, Neutrophils # (Auto) 2.71, Lymphocytes # (Auto) 1.93, Monocytes # (Auto) 0.42, Eosinophils # (Auto) 0.03, Basophils # (Auto) 0.01 11/13/17 11:15 Test 11/13/17 11:15 11/13/17 11:40 White Blood Count 5.11 K/uL (4.8-10.8) Red Blood Count 4.85 M/uL (4.2-5.4) Hemoglobin 15.2 g/dL (12.0-16.0) Hematocrit 44.6 % (37-47) Mean Corpuscular Volume 92.0 fL (80-100) Mean Corpuscular Hemoglobin 31.3 pg (25-34) Mean Corpuscular Hemoglobin Concent 34.1 g/dl (32-36) Platelet Count 236 K/uL (130-400) Mean Platelet Volume 10.4 fL (7.4-10.4) Neutrophils (%) (Auto) 53.0 % Lymphocytes (%) (Auto) 37.8 % Monocytes (%) (Auto) 8.2 % Eosinophils (%) (Auto) 0.6 % Basophils (%) (Auto) 0.2 % Neutrophils # (Auto) 2.71 K/uL (1.4-6.5) Lymphocytes # (Auto) 1.93 K/uL (1.2-3.4) Monocytes # (Auto) 0.42 K/uL (0.11-0.59) Eosinophils # (Auto) 0.03 K/uL (0-0.5) Basophils # (Auto) 0.01 K/uL (0-0.2) RDW Standard Deviation 46.4 fL (36.4-46.3) RDW Coefficient of Variation 13.7 % (11.5-14.5) Immature Granulocyte % (Auto) 0.2 % Immature Granulocyte # (Auto) 0.01 K/uL (0.00-0.02) Prothrombin Time 12.1 SECONDS (9.0-12.0) Prothromb Time International Ratio 1.2 (0.9-1.1) Activated Partial Thromboplast Time 33.6 SECONDS (21.0-31.0) Partial Thromboplastin Ratio 1.3 Est Creatinine Clear Calc Drug Dose 88.9 ml/min Estimated GFR () 92.9 Estimated GFR (Non- 80.1 BUN/Creatinine Ratio 26.5 (10-20) Calcium Level 9.4 mg/dl (8.5-10.1) Phosphorus Level 3.6 mg/dl (2.5-4.9) Magnesium Level 1.8 mg/dl (1.8-2.4) Total Bilirubin 0.6 mg/dl (0.2-1) Direct Bilirubin 0.1 mg/dl (0-0.2) Aspartate Amino Transf (AST/SGOT) 25 U/L (15-37) Alanine Aminotransferase (ALT/SGPT) 27 U/L (12-78) Alkaline Phosphatase 46 U/L (45-117) Troponin I < 0.015 ng/ml (0-0.045) Pro-B-Type Natriuretic Peptide 310 pg/ml (0-900) Total Protein 7.3 gm/dl (6.4-8.2) Albumin 3.4 gm/dl (3.4-5.0) Lipase 267 U/L (73-393) Bedside Hemoglobin 15.3 g/dl (12.0-16.0) Bedside Hematocrit 45 % (37-47) Bedside Sodium 140 mEq/L (135-144) Bedside Potassium 3.9 mEq/L (3.3-5.0) Bedside Chloride 99 mEq/L (101-112) Bedside Total CO2 29 mEq/l (24-31) Anion Gap 17.0 mmol/L (16-25) Bedside Blood Urea Nitrogen 29 mg/dl (7-18) Bedside Creatinine 0.7 mg/dl (0.6-1.3) Bedside Glucose (other) 119 mg/dl (70-99) Bedside Ionized Calcium (Mira) 1.10 mmol/l (1.12-1.32) Laboratory results reviewed by me Medications Administered Medications (Trade) Dose Ordered Sig/Donnie Route Start Time Stop Time Status Last Admin Dose Admin Metoprolol Tartrate (Lopressor Iv) 5 mg NOW STAT IV 11/13/17 11:40 11/13/17 11:43 DC 11/13/17 11:56 5 MG Digoxin 250 mcg/ Syringe 10 ml @ 2 mls/min NOW ONCE IV 11/13/17 11:45 11/13/17 11:49 DC 11/13/17 11:45 2 MLS/MIN Metoprolol Tartrate (Lopressor Iv) 5 mg NOW STAT IV 11/13/17 12:52 11/13/17 12:53 DC 11/13/17 13:15 5 MG ECG Indication: chest pain Rate (beats per minute): 147 Rhythm: atrial fibrillation (with RVR) Findings: ST depression (V3, V4, V5), T-wave inversion (avL), other (normal QRS ) ED Course 1122: The patient was evaluated in room C2B. A complete history and physical exam was performed. 1138: I discussed the patient's case with Dr. Woodard - Cardiology. He agrees to try Digoxin and a Lopressor IV. 1224: I revaluated the patient and she is doing well. 1252: Dr. Woodard states that the EKG looks unchanged. 1259: Discussed the patient's case with Dr. Garza- [facility] [place]. The patient will be evaluated for further treatment and disposition. 1400: I reevaluated the patient and she is resting comfortably. She converted to sinus. Medical Decision The patient is a 62 year old female with a past medical history of hypertension, esophageal reflux, and atrial fibrillation who presents to the ED with a cc of constant chest pain beginning 2.5 hours ago. Etiologies such as cardiac ischemia, aortic dissection, pulmonary embolism, pneumonia, pneumothorax, musculoskeletal, infections, pericarditis, myocarditis , esophageal rupture, gastrointestinal, as well as others were entertained. Patient was seen and evaluated at the bedside. Patient did complain of some left-sided chest pressure which is been ongoing since 9 AM. Patient denied that awoke her from sleep that she was already awake and active. Patient does have a known history of A. fib. Upon further review of the EMR the patient is have a history of hypertrophic obstructive cardiomyopathy. Patient does take 100 mg of Toprol long-acting which she did take this morning. Patient does have some soft blood pressures and is tachycardic in A. fib with RVR. Patient is already anticoagulated on Xarelto. Patient states he's she has not missed any doses and denies any stimulants, caffeine, cocaine. No history of thyroid issues either. Patient's initial blood work was fairly unremarkable. Patient' s EKG did show A. fib with RVR and did show some anterior lateral depressions with T-wave inversions in the high lateral leads. Patient otherwise is very well-appearing. Past were placed and I did speak with the acid operator given the depressions which may be rate related. Cutter Wet Machine deemed that these were unchanged from prior EKG in the past. Patient was given a digoxin load at 250 mics and was also given IV lopressor. The IV lopressor improved her blood pressure as well as her symptoms, thus she was given a second dose of IV lopressor. Upon reevaluation she was feeling improved. Upon subsequent reevaluation after speaking with the hospitalist for admission the patient was noted to be in sinus. A repeat EKG was obtained. Patient was admitted for further evaluation and treatment with a cardiology consult. Medication Reconcilliation Current Medication List: was personally reviewed by me Blood Pressure Screening Patient's blood pressure: Normal blood pressure Will be further monitored by the hospitalist. Consults Time Called: 1137 Consulting Physician: Dr. Yamilet Camarena Returned Call: 1132 I discussed the patient's case with Dr. Yamilet Camarena. He agrees to try Digoxin and a Lopressor IV. Additional Consults: Time Called: 1252 Consulted Physician: Dr. Evelyn GROSSMAN Returned Call: 1253 Additional Comments: Discussed the patient's case with Dr. Evelyn GROSSMAN. The patient will be evaluated for further treatment and disposition. Impression Primary Impression: Atrial fibrillation with RVR Additional Impression: Chest pain Critical Care I have personally spent greater than 45 minutes of critical care time in the direct management of this patient. This includes bedside care, interpretation of diagnostic studies, and testing, discussion with consultants, patient, and family members, and other required patient management activities. This 45 minutes is in excess of all separately billable procedures. Scribe Attestation The scribe's documentation has been prepared under my direction and personally reviewed by me in its entirety. I confirm that the note above accurately reflects all work, treatment, procedures, and medical decision making performed by me. Departure Information Dispostion Being Evaluated By Hospitalist Referrals Jessica Valadez C.R.NShiraP. (PCP) Patient Instructions My [facility] Problem Qualifiers Additional Impression: Chest pain Chest pain type: unspecified Qualified Codes: R07.9 - Chest pain, unspecified
[2017-11-13 15:22] VITALS: BP 122/74; PULSE 90; TEMP 36.6; O2SAT 95; Ht 152.4 cm; Wt 115.8 kg
[2017-11-13 19:23] VITALS: BP 101/66; PULSE 71; TEMP 36.5; O2SAT 91
[2017-11-13 20:06] LABS: CKMB 5.7 ng/ml (0.5-3.6)
[2017-11-13 23:30] VITALS: BP 113/73; PULSE 76; TEMP 36.7; O2SAT 94
[2017-11-14 03:30] VITALS: BP 139/71; PULSE 70; TEMP 36.7; O2SAT 93
[2017-11-14 03:38] LABS: BLOOD UREA NITROGEN 19 mg/dl (7-18); CALCIUM 8.5 mg/dl (8.5-10.1); CARBON DIOXIDE 32 mmol/L (21-32); CKMB 4.3 ng/ml (0.5-3.6); CREATININE 0.81 mg/dl (0.60-1.20); GLUCOSE 99 mg/dl (70-99); POTASSIUM 4.7 mmol/L (3.5-5.1); SODIUM 140 mmol/L (136-145)
[2017-11-14 07:15] VITALS: BP 107/63; PULSE 76; TEMP 36.7; O2SAT 92
[2017-11-14] MEDS ORDERED: CHOLECALCIFEROL 1000 INTER.UNIT TAB PO SCH (09:00)
[2017-11-14] MEDS ORDERED: METOPROLOL SUCC 50MG EXT REL TAB PO SCH (09:00)
[2017-11-14] MEDS ORDERED: PANTOprazole SOD 40 MG TAB PO SCH (09:00)
[2017-11-14] MEDS ORDERED: RIVAROXABAN 20 MG TAB PO SCH (09:00)
[2017-11-14 10:50] VITALS: BP 117/76; PULSE 73; TEMP 36.7; O2SAT 94
[2017-11-14] MEDS ORDERED: METO50TA7 PO (11:01)
--- NOTE | 2017-11-14 11:04 | Discharge Instructions ---
Discharge Instructions Date of Service Nov 14, 2017. Admission Reason for Admission: Atrial Fibrillation With Rvr Discharge Discharge Diagnosis / Problem: Atrial fibrillation with RVR Discharge Goals Goal(s): Decrease discomfort, Learn about illness, Diagnostic testing, Therapeutic intervention, Prevent Disease Progression Activity Recommendations Activity Limitations: resume your previous activity . Instructions / Follow-Up Instructions / Follow-Up Medication changes: Metoprolol 100 mg daily was INCREASED to 150 mg daily Resume all other regular home medications as prescribed FOLLOW-UPS: Please follow-up with your PCP within 5-7 days Please follow-up with Cardiology as scheduled on 12/05/17 Please follow-up/keep all of your subspecialty appointments Current Hospital Diet Patient's current hospital diet: AHA Diet (Heart Healthy) Discharge Diet Recommended Diet: AHA Diet (Heart Healthy) Pending Studies Studies pending at discharge: no Laboratory Results Lipid Panel Test 08/29/17 09:33 Range/Units Triglycerides Level 92 0-150 mg/dl Cholesterol Level 169 0-200 mg/dl HDL Cholesterol 43 mg/dl Cholesterol/HDL Ratio 3.9 LDL Cholesterol, Calculated 108 mg/dl Medical Emergencies . Who to Call and When: Medical Emergencies: If at any time you feel your situation is an emergency, please call 911 immediately. . Non-Emergent Contact Non-Emergency issues call your: Primary Care Provider, Plum Packer Call Non-Emergent contact if: you have any medication questions . . "Provider Documentation" section prepared by Christie Falcon. . VTE Core Measure Inpt VTE Proph given/why not?: Other Anticoagulation, T.E.D. Stockings, SCD's
--- NOTE | 2017-11-14 11:11 | Discharge Summary ---
Discharge Summary Date of Service Nov 14, 2017. Discharge Summary Admission Date: Nov 13, 2017 at 13:22 Discharge Date: Nov 14, 2017 Discharge Disposition: Home Principal Diagnosis: A.fib with RVR Problems/Secondary Diagnoses: Hypokalemia at 3.2 HTN hypotension secondary to a.fib w/ RVR GERD troponin elevation secondary to RVR Procedures: CHEST ONE VIEW PORTABLE HISTORY: Atypical CHEST PAIN COMPARISON: Chest 05/09/2017. FINDINGS: No pneumothorax. No pleural effusions. The heart remains mildly enlarged. Diffuse interstitial and vascular thickening, unchanged. No new focal lung consolidations. IMPRESSION: No change in the cardiomegaly and mild congestive change/edema. Electronically signed by: Sung Smyth M.D. 11/13/2017 12:21 PM Dictated Date/Time: 11/13/2017 12:19 PM The status of this report is Signed. Draft = Not yet reviewed or approved by Radiologist. Signed = Reviewed and approved by Radiologist. Consultations: Cardiology Medication Reconciliation Changed Medications: Metoprolol Succ (Toprol Xl) (Toprol-Xl) 50 Mg Tabcr 3 TAB PO DAILY for 30 Days, #90 TAB 5 Refills (Changed from: Metoprolol Succ ( Toprol Xl) (Toprol-Xl ) 100 Mg Tabcr 100 Mg PO QAM) Continued Medications: Calcium Carbonate-Vitamin D (Calcium 600+D) 1 Tab Tab 1 TAB PO BID Cholecalciferol (Vitamin D3) 1,000 Inter.unit Tab 2000 INTER.UNIT PO DAILY Hctz/Lisinopril (Lisinopril/Hctz 20/25 Mg) 1 Ea Tab 1 TAB PO QAM Lansoprazole (Prevacid) 30 Mg Capcr 30 MG PO QAM Rivaroxaban (Xarelto) 20 Mg Tab 20 MG PO QAM Discharge Exam Review of Systems: Constitutional: No fever, No chills, No sweats, No weakness, No fatigue Eyes: No worsening of vision ENT: No hearing loss Respiratory: No cough, No shortness of breath, No hemoptysis Cardiovascular: No chest pain, No edema, No palpitations Abdomen: No pain, No nausea, No vomiting, No diarrhea, No constipation Musculoskeletal: No joint pain, No muscle pain, No swelling, No calf pain Genitourinary - Female: No dysuria, No hematuria Neurologic: No weakness, No numbness/tingling Psychiatric: No depression symptoms, No anxiety Endocrine: No fatigue Hematologic / Lymphatic: No abnormal bleeding/bruising Integumentary: No rash, No itch, No new/changing skin lesions Physical Exam: General Appearance: no apparent distress, + obese Eyes: normal inspection, PERRL ENT: hearing grossly normal Neck: supple Respiratory/Chest: lungs clear, no respiratory distress, no accessory muscle use Cardiovascular: regular rate, rhythm, + systolic murmur Abdomen / GI: normal bowel sounds, non tender, soft Extremities: no calf tenderness, no pedal edema Neurologic/Psychiatric: alert, normal mood/affect, oriented x 3 Skin: normal color, warm/dry, no rash Hospital Course Admission H&P: Patient is a pleasant 62 y/o female, with PMHx of paroxysmal a.fib, HTN, and GERD, who presented to the ED with complaints of centralized chest pressure. Discomfort did not radiate. No alleviating/aggravating factors. +nausea prior to arrival. She does have a h/o a.fib w/ RVR- she presented in April 2017 with similar symptoms. When presenting to ED today, patient was found to be in a.fib w/ RVR (HR >150) and hypotensive at 65/47. ED physician spoke w/ Dr. Woodard who instructed IV Metoprolol + Digoxin- rates improved to 120-130s and BP at 112/ 72. Patient did take all of her medications this AM. Patient denies any fever, chills, sweats, lightheadedness, dizziness, vision changes, palpitations, edema , SOB, wheezing, cough, abdominal pain, vomiting, diarrhea, urinary symptoms, melena, numbness/tingling, weakness, muscle/joint pain, anxiety/depression, active bleeding, or new skin discoloration/changes. Physical Exam Vital Signs Date Time Temp Pulse Resp B/P (MAP) Pulse Ox O2 Delivery O2 Flow Rate FiO2 11/13/17 13:16 122 18 112/72 98 2.0 11/13/17 13:15 125 112/72 11/13/17 12:34 134 20 102/75 94 Nasal Cannula 2.0 11/13/17 12:25 145 84/68 96 Nasal Cannula 3.0 11/13/17 12:14 135 73/60 94 Room Air 11/13/17 12:13 139 1/14/18 12:00 150 20 53/36 93 Nasal Cannula 3.0 11/13/17 11:56 140 97/61 11/13/17 11:45 134 11/13/17 11:06 36.1 153 20 65/47 95 Nasal Cannula 3.0 General Appearance: no apparent distress, + obese, + pertinent finding (O2 NC ) Head: normocephalic, atraumatic Eyes: normal inspection, PERRL ENT: hearing grossly normal Neck: supple Respiratory/Chest: lungs clear, no respiratory distress, no accessory muscle use Cardiovascular: + tachycardia, + systolic murmur, + irregularly irregular Abdomen/GI: normal bowel sounds, non tender, soft Back: normal inspection Extremities/Musculoskelatal: no calf tenderness, no pedal edema Neurologic/Psych: alert, normal mood/affect, oriented x 3 Skin: normal color, warm/dry, no rash Hospital Course: Patient is a pleasant 62 y/o female, with PMHx of paroxysmal a.fib, HTN, and GERD, who presented to the ED with complaints of centralized chest pressure. A.fib w/ RVR: - Admit to tele for cardiac monitoring- convert to NSR - Trend cardiac enzymes- peak trop 0.725 secondary to RVR - Follow EKG QAM and PRN for chest pain - Continue Metoprolol 100 mg QAM and IV Metoprolol 5 mg q6 hr PRN for HR >120 -- Metoprolol increased to 150 mg daily at discharge per cardiology - Digoxin 250 mcg x2 doses- converted to NSR - Continue Xarelto - Consulted cardiology, appreciate recommendations Hypokalemia at 3.2- RESOLVED: KCL 40 mEq PO x1 dose now- follow PRP and replace PRN HTN w/ hypotension in ED secondary to a.fib w/ RVR- RESOLVED: Hold HCTZ/ Lisinopril- resume at discharge GERD: Protonix while inpatient- resume Prevacid at discharge DVT prophylaxis: Xarelto Code Status: LEVEL III, FULL NO [facility] Dispo: Discharge to home Supervising Note Dr. Warner I performed a history and physical examination on the patient. I reviewed above note and agree with it. I discussed discharge plan with APC and patient. During my face to face encounter with the patient, I answered all of the patient's questions. Total Time Spent: Greater than 30 minutes This includes examination of the patient, discharge planning, medication reconciliation, and communication with other providers. Discharge Instructions Please refer to the electronic Patient Visit Report (Discharge Instructions) for additional information. Follow-Up Please follow-up with your PCP within 5-7 days Please follow-up with Cardiology as scheduled on 12/05/17 Please follow-up/keep all of your subspecialty appointments Additional Copies To Jessica Valadez C.R.N.P.
[2017-11-14 11:54] VITALS: BP 117/76; PULSE 73; TEMP 36.7; O2SAT 94
--- NOTE | 2017-11-14 12:13 | CARDIOLOGY CONSULTATION REPORT ---
DATE OF CONSULTATION: 11/14/2017 REASON FOR CONSULTATION: 1. Paroxysmal Atrial Fibrillation. 2. Elevated Troponin I Level. HISTORY OF PRESENT ILLNESS: Mrs. Sevilla is a morbidly obese 62-year-old white female with a history of a HOCM, Hypertension, GERD, and Paroxysmal Atrial Fibrillation (initially diagnosed in April 2017) who presented acutely to [facility] ER on 11/13/2017 complaining of tachy palpitations, tachycardia, and chest pressure. Symptoms began at approximately 09:00 on 11/13/2017 and lasted for a total of approximately 4-5 hours. The patient states that she was sitting up at the side of her bed on the morning of 11/13/2017 when she had sudden onset tachypalpitations, tachycardia, followed by development of a chest pressure/tightness which did not seem to radiate, but was associated with some mild exertional dyspnea and a brief period of nausea. She was noted to be in rapid atrial fibrillation with ventricular rates in the 150s, and she was somewhat hypotensive on admission. She was given IV Lopressor, and she received a dose of Digoxin. She converted spontaneously from rapid atrial fibrillation back to a normal sinus rhythm at approximately 13:47 on 11/13/2017. She has felt quite well since that time. She has not had any recurrent chest pressure, shortness of breath, dyspnea on exertion, palpitations, tachypalpitations, or any further nausea. She feels like her "old self." The patient's initial troponin I was < 0.015 ng/mL, but peaked at 0.725 ng/mL and is now tending downward. Her EKG on admission showed atrial fibrillation at a rate of approximately 150 beats per minute with lateral ST and T wave abnormalities. Her potassium on admission was slightly low at 3.2 mmol/L, but that has been corrected. ProBNP was within normal limits at 310 pg/mL. MEDICATIONS: 1. Vitamin D 2000 international units daily. 2. Toprol XL 100 mg daily. 3. Xarelto 20 mg daily. 4. Protonix 40 mg daily. 5. Tylenol p.r.n. 6. Maalox max p.r.n. 7. Milk of magnesia p.r.n. 8. Zofran 4 mg IV q. 6 hours p.r.n. for nausea. 9. Morphine sulfate 2 mg IV q. 30 minutes for chest pain as needed. 10. MiraLax powder daily as needed. 11. IV Lopressor 5 mg q. 6 hours p.r.n. 12. She did receive a single dose of digoxin 250 mcg IV. ALLERGIES: NKDA. PAST MEDICAL HISTORY: 1. Hypertrophic Obstructive Cardiomyopathy. 2. Hypertension. 3. GERD. 4. Paroxysmal atrial fibrillation. 5. Echocardiogram 05/10/2017 showed severe LVH with asymmetric basal septal thickening, LVEF greater than 70%, aortic valve sclerosis, grade 2 left ventricular diastolic dysfunction, mild LVOT obstruction, trace MR, trace TR. 6. Lexiscan Cardiolite on 05/11/2017 was negative for myocardial ischemia. LVEF greater than 70%. SOCIAL HISTORY: The patient is and lives at home with her , 2 sons, and a grandson. She is a lifelong nonsmoker. Does not use alcohol. The patient does not work. FAMILY HISTORY: Significant for diabetes mellitus, stroke, and pancreatic cancer. PHYSICAL EXAMINATION: VITAL SIGNS: Temperature is 36.7 degree Celsius, pulse is 72 and regular, respiratory rate is 14, nonlabored, blood pressure is 107/63, SpO2 is 92% on room air. GENERAL: The patient is in no acute distress. She is sitting up at the bedside. HEENT: Head is atraumatic and normocephalic. EOMs intact. Sclerae are anicteric. Face is symmetric. No perioral cyanosis. NECK: Without JVD. Jugular venous pressures at the level of the clavicle siting upright. Carotid upstrokes +2 bilaterally without obvious bruits. CHEST AND LUNGS: Clear to auscultation throughout the lung moise, no wheezes, rales or rhonchi. CARDIOVASCULAR: S1 and S2 are regular with a grade 2/6 systolic murmur heard best at the right second intercostal space, radiates to the suprasternal notch. Also heard at the left sternal border. No diastolic murmurs appreciated. No obvious gallops or rubs. PMI is not palpable. No lifts, heaves or thrills. No abdominal aortic or renal bruits. ABDOMEN: Bowel sounds are present. EXTREMITIES: Without clubbing, cyanosis or edema. NEUROLOGIC: The patient is awake, alert and oriented. Pleasant and cooperative. She answers questions appropriately. Speech is clear. Normal movement in all 4 extremities. [place] pattern not assessed. Current telemetry monitoring reveals normal sinus rhythm. EKG this morning shows a normal sinus rhythm at the rate of 69 beats per minute, this is a normal EKG tracing. No ST segment or T wave abnormalities noted. LABORATORY DATA: Sodium 140 mmol/L, potassium 4.7 mmol/L, BUN is 19 mg/dL, and creatinine is 0.81 mg/dL. Random glucose is 99 mg/dL. Serum magnesium level 1.8 mg/dL. CK-MBs are 4.3 and 5.7 ng/mL. Troponin I levels are 0.665, 0.725 and 0.015 ng/mL. ProBNP normal at 310 pg/mL. Hemoglobin 15.3 g/dL, hematocrit is 45%. Chest x-ray on admission shows chronic cardiomegaly, mild congestive change. ASSESSMENT: 1. Paroxysmal Atrial Fibrillation with Right Ventricular Rate, status post spontaneous conversion to normal sinus rhythm. 2. Chest Pressure and elevated troponin I level -- likely myocardial O2 supply demand mismatch in the presence of rapid atrial fibrillation and severe left ventricular hypertrophy. 3. Hypertrophic Obstructive Cardiomyopathy. 4. Hypertension. 5. Gastroesophageal reflux disease. 6. No evidence of congestive heart failure on physical examination. 7. No signs or symptoms of stroke or mini stroke. PLAN: 1. Discussed with Dr. Solis. 2. The patient reverted back to a normal sinus rhythm yesterday afternoon. She has maintained a normal sinus rhythm since that time. 3. Recommend discharging patient to home on Toprol XL 150 mg daily and continue Xarelto 20 mg daily. 4. Suspect that her bump in troponin I is related to severe LVH, HOCM, and rapid atrial fibrillation. 5. I had a long discussion with the patient today regarding her HOCM and the natural history of atrial fibrillation and various management strategies. If she has recurrent atrial fibrillation, would recommend starting Sotalol to prevent future episodes of atrial fibrillation. 6. Continue shelter anticoagulation. 7. Resume Lisinopril/Hydrochlorothiazide as an outpatient. 8. Consider sending home with supplemental KCL 10 mEq daily. 9. Hypokalemia, resolved. 10. Would not recommend further ischemic workup as she had a negative Lexiscan in April 2017. 11. Avoid dehydration. 12. The patient is stable from a cardiac standpoint for discharge to home. She will be seen in follow up in Dr. Solis's clinic on 12/05/2017 as previously scheduled. MTDD
== END 2017-11-14 12:45 | disposition home or self-care (01) | DRG 309 ==
LOC: EDBD 10:57 → C.EDC 10:58 → C.2T 13:22 → ENRESERV 14:16
PROVIDERS: ADMIT Family Medicine; ATTEND Family Medicine
DX: I48.0 Paroxysmal atrial fibrillation (principal); Z68.42 Body mass index [BMI] 45.0-49.9, adult; I95.9 Hypotension, unspecified; I10 Essential (primary) hypertension; E87.6 Hypokalemia; E66.01 Morbid (severe) obesity due to excess calories; I42.1 Obstructive hypertrophic cardiomyopathy; K21.9 Gastro-esophageal reflux disease without esophagitis; Z83.3 Family history of diabetes mellitus; Z82.3 Family history of stroke

== ENCOUNTER → 2017-12-16 | Day surgery (SDC) | payer OTHER ==
[2017-11-11 14:35] VITALS: BMI 50.0
[2017-11-11 14:40] VITALS: BMI 50.0
--- NOTE | 2017-12-12 10:03 | PAT Medication Instructions ---
Service Date Dec 12, 2017. Current Home Medication List Calcium Carbonate-Vitamin D (Calcium 600+D), 1 TAB PO BID Cholecalciferol (Vitamin D3), 2,000 INTER.UNIT PO DAILY Hctz/Lisinopril (Lisinopril/Hctz 20/25 Mg), 1 TAB PO QAM Lansoprazole (Prevacid), 30 MG PO QAM Metoprolol Succ (Toprol Xl) (Toprol-Xl), 3 TAB PO DAILY Rivaroxaban (Xarelto), 20 MG PO QAM Medication Instructions For Your Scheduled Surgery - Check with surgeon and hydraulic dredge operator for instructions: Rivaroxaban (Xarelto), 20 MG PO QAM - Hold the following medications the morning of surgery: Calcium Carbonate-Vitamin D (Calcium 600+D), 1 TAB PO BID Cholecalciferol (Vitamin D3), 2,000 INTER.UNIT PO DAILY Hctz/Lisinopril (Lisinopril/Hctz 20/25 Mg), 1 TAB PO QAM - Take the following medications the morning of surgery with a sip of water: Metoprolol Succ (Toprol Xl) (Toprol-Xl), 3 TAB PO DAILY Lansoprazole (Prevacid), 30 MG PO QAM If you have any questions please call us at [phone] or [phone] or [phone]
--- NOTE | 2017-12-15 10:15 | History and Physical ---
History & Physical Date of Service Dec 15, 2017. History & Physical CHIEF COMPLAINT: Bilateral carpal tunnel syndrome, left greater than right. HISTORY OF PRESENT ILLNESS: This 62-year-old female presents to clinic today for a preoperative history and physical. The patient complains of a 20-year history of carpal tunnel syndrome affecting her right wrist; however, she states that over the past 2 years, she has had increased pain in her left wrist with persistent numbness and tingling, difficulty peeling food or buttoning her clothing. The patient has tried nighttime splinting without relief. She would like to proceed with a left carpal tunnel release. PAST SURGICAL HISTORY: Tonsillectomy/adenoidectomy. PAST MEDICAL HISTORY: Atrial fibrillation, hypertension and gastroesophageal reflux along with obesity. FAMILY HISTORY: Positive for heart disease, stroke, pancreatic cancer and diabetes. ALLERGIES: The patient has no known drug allergies. CURRENT MEDICATIONS TAKEN: Calcium 600 plus D 1 tab twice daily, hydrochlorothiazide-lisinopril 25 mg/20 mg oral tablet 1 tab daily, lansoprazole 30 mg oral delayed release capsule 1 cap daily, metoprolol succinate ER 100 mg oral tablet extended release 1 tab daily, vitamin D3, 2000 international units daily, and Xarelto 20 mg oral tablet 1 tab daily. SOCIAL HISTORY: The patient denies any history of smoking, alcohol or illicit drug use. PHYSICAL EXAMINATION: Skin: The patient's skin is normal in appearance. No open skin lesions or discharge. Eyes: Pupils are equal and reactive to light and accommodating. Extraocular movements are intact. Throat: Posterior oropharynx is clear with absence of edema, erythema or exudate. Cardiovascular exam: The patient has a regular rate and rhythm during today's visit; however, there is appreciable grade 3/6 holosystolic murmur heard best over the apex. Lungs: Auscultation of lung moise reveals clear breath sounds throughout. Abdomen is obese, nondistended, nontender with normoactive bowel sounds. Extremities: Bilateral wrists: Patient has a negative Tinel and Phalen's test in both hands. She is able to resist distraction and compression of digits. She is able to resist distraction of pincer grasp between the thumb and index finger. She has no pain with flexion, extension, ulnar, radial deviation, pronation or supination actively or passively against resistance. She is able to depict light sensation to touch in all digits. Multimedia Designer strength is equal bilaterally and 5/5. All other extremities were normal in appearance with appropriate range of motion and strength. Neurological exam: Cranial nerves 2- 12 are intact with no motor or sensory deficit. Psychological/general exam: The patient is alert and oriented x3 with proper grooming and hygiene. DIAGNOSES: Left carpal tunnel syndrome. PROCEDURE: Endoscopic; possible open left carpal tunnel release. EMG shows severe bilateral median compression neuropathies at the wrists with right being greater than left. However, patient is most symptomatic in the left wrist. PLAN: The patient is scheduled to undergo this procedure with Dr. Tal Yeager at the [facility] on December 16, 2017. Risks and complications of the surgery such as infection, bleeding, pain, scarring, nerve and blood vessel damage, weakness, wound problems, stiffness, incomplete relief of symptoms, heart attack, stroke, , recurrence, atrophy, persistent numbness and tingling and sensitivity at the incision site were explained to the patient by Dr. Yeager at her visit on October 03. She understood and agreed and written consent to perform the procedure was obtained. At this point, there is no clinical indication for medical clearance. However, patient will require an EKG , CBC, and basic metabolic panel. She states that these were done on Tuesday at the [facility] and we retrieved them from the [facility] system and have the results of each. The patient was scheduled for postoperative followup with Dr. Yeager on December 29 at 1:30 in the afternoon. Her initial physical therapy appointment is scheduled for December 19 at 10:30 a.m. She states she will most likely continue physical therapy if necessary at [facility] in [place], [place]. The patient was given a prescription for [place] for postoperative pain control. PDMP was checked, no red flags were raised as far as prescribing this medication. The patient verbalized understanding of all information provided at today's visit, thankful for the care she has received and states if she has questions or concerns regarding the procedure prior to the procedure date, she will contact the clinic accordingly.
[~2017-12-16] VITALS: Ht 152.4 cm; Wt 117.3 kg
[~2017-12-16] MED LIST changes: +ATROPINE SULFATE 0.1 MG/ML 5ML SYR IV PRN; +CEFAZOLIN 2000MG IV PUSH 15 ML IV SCH; +EpHEDrine SULFATE INJ 50 MG/ML AMP IV PRN; +FENTANYL CITRATE INJ 50 MCG/1 ML 2 ML VIAL IV PRN; +FENTANYL CITRATE INJ 50 MCG/1 ML 2 ML VIAL ONE; +HYDROCODONE/ACETAMIN 5/325MG TAB PO PRN; +HYDROmorphone INJ 2 MG/ML SYR/VIAL ONE; +LACTATED RINGER'S 1000ML 1,000 ML IV SCH; +LIDOCAINE HCL 2% 2 ML VIAL (20MG/ML) ONE; +LIDOCAINE HCL 2% LOCAL 50ML VIAL ONE; +LIDOCAINE/EPINEPHRINE 1% 20 ML VIAL ONE; -METO100T44 PO; +METO50TA8 PO; +MIDAZOLAM HCL 1 MG/ML 2ML VIAL ONE; +MoRPHine SULFATE 2 MG/ML CARP IV PRN; +MoRPHine SULFATE 4 MG/ML 1 ML CARP\\VIAL IV PRN; +ONDANSETRON INJ 2 MG/ML 2 ML VIAL IV PRN; +ONDANSETRON INJ 2 MG/ML 2 ML VIAL ONE; +OXYCODONE/ACETAMINOPHEN 5-325 TAB PO PRN; +PROPOFOL IV EMULSION 10 MG/ML 20 ML VIAL IV ONE; +SODIUM CHLORIDE 0.9% 1000ML 1,000 ML IV SCH
[2017-12-16 05:58] VITALS: BP 155/74; PULSE 83; TEMP 36.7; O2SAT 94; Ht 152.4 cm; Wt 117.3 kg
--- NOTE | 2017-12-16 06:49 | History & Physical Bridge Note ---
H&P Re-Evaluation Bridge Note: I have examined the patient, reviewed the History & Physical and in the interval since the performance of the History & Physical I have noted the following changes of clinical significance: No changes noted
--- NOTE | 2017-12-16 07:56 | [facility] Post Operative Brief Note ---
Immediate Operative Summary Operative Date Dec 16, 2017. Pre-Operative Diagnosis Left Carpal Tunnel Syndrome Post-Operative Diagnosis Left Carpal Tunnel Syndrome Procedure(s) Performed Endoscopic Left Carpal Tunnel Release Surgeon Dr. Tal Yeager Crank Hand Surgeon(s) Radames Wheat PA-C (No fellow avail) Estimated Blood Loss 2ML Findings Consistent with Post-Op Diagnosis Fluids (cc crystalloids) 600 Specimens no specimens per surgeon Dr. Tal Yeager Drains None Anesthesia Type MAC Complication(s) none Disposition Disposition: Recovery Room / PACU (Stable)
--- NOTE | 2017-12-16 07:58 | [facility] Operative Report ---
Operative Report Operative Date Dec 16, 2017. Pre-Operative Diagnosis Left Carpal Tunnel Syndrome Post-Operative Diagnosis Left Carpal Tunnel Syndrome Procedure(s) Performed Endoscopic Left Carpal Tunnel Release Surgeon Dr. Tal Yeager Accounting Specialist Surgeon(s) Radames Wheat PA-C (No fellow avail) Estimated Blood Loss 2ML Findings Thickened Left Transverse Carpal Ligament Fluids 600 Specimens no specimens per surgeon Dr. Tal Yeager Drains None Anesthesia Type MAC Complication(s) none Disposition Recovery Room / PACU (Stable) Indications The patient is a 62 year old female with long standing left carpal tunnel syndrome that has failed conservative treatment. I recommended endoscopic left carpal tunnel release. The patient understands the risks of surgery, which include but are not limited to: bleeding, infection, re-operation, damage to nerves and arteries, continued pain, and stiffness. The patient understands all of these instructions and explanations, all of their questions have been satisfactorily addressed. The patient has elected to proceed with surgery and the informed consent was signed. Description of Procedure The patient was taken to the Operating Room and placed in the supine position on the operating table. After adequate sedation was administered a multidisciplinary time-out was performed identifying my initials on the left upper extremity as the correct and operative limb. Prior to the incisions being made, 3 grams of intravenous Ancef were given. The left upper extremity was prepped and draped in the usual orthopaedic sterile fashion. A Median nerve block was performed in the standard manner, along with superficial injection of the planned incisions with 10 cc of a 50:50 mix of 1% Lidocaine plain and 0.5% Bupivacaine plain. The Pisiform was marked and the planned transverse incision was marked 0.5 cm proximal and 1.5 cm radial, approximately 1 cm in length. An Esmarch was used to exsanguinate the limb and the tourniquet was inflated to 250mmHg. The planned exit portal was made in- line with the Ring Finger crossing Caplans line. The Transverse incision was carried down through the skin and blunt dissect was carried down through the fascia, protecting any superficial vessels. A freer was used to expose the carpal tunnel to the point of the distal exit portal. The slotted cannula was introduced from proximal to distal and the exit portal was incised and the slotted cannula was delivered out the exit portal. The hand was placed on the extension bump. The arthroscope was placed from proximal to distal to view the Transverse Carpal Ligament (TCL). Multiple Q-tips were used for better exposure. The most distal aspect of the TCL was incised with forward cutting blade. Then the Triangular blade was used to incise the TCL in the mid-portion. The retrograde scalpel was used to connect the two incisions in the TCL. At this point the arthroscope was switched to view from the distal to proximal and the proximal portion of the TCL was incised. Care was taken not incise the skin. The forward cutting blade was used to incise the proximal portion. Then the retrograde blade connected the two incisions in the TCL. The triangular blade was used to incise any remaining fibers of the TCL. The entire release was visualized with the arthroscope. The wounds were copiously irrigated. The trocar was replaced prior to removing the cannula. Both portals were closed with 3-0 Nylon. The incisions were dressed with Xeroform gauze, sterile gauze, sterile Webril, and an ARINA bandage. The sponge and needle counts were correct. The patient was taken to the recovery room in stable condition. Post-op Instructions: Pain medicine prescription was given pre-operatively to be taken as needed. The patient will elevate and ice. No heavy lifting with his left upper extremity. The patient will follow up with me in 10-15 days. I attest to the content of the Intraoperative Record and any orders documented therein. Any exceptions are noted below.
--- NOTE | 2017-12-16 07:59 | [facility] Operative Report ---
Operative Report Operative Date Dec 16, 2017. Pre-Operative Diagnosis Left Carpal Tunnel Syndrome Post-Operative Diagnosis Left Carpal Tunnel Syndrome Procedure(s) Performed Endoscopic Left Carpal Tunnel Release Surgeon Dr. Tal Yeager Budget Specialist Surgeon(s) Radames Wheat PA-C (No fellow avail) Estimated Blood Loss 2ML Findings Thickened Left Transverse Carpal Ligament Fluids 600 Specimens no specimens per surgeon Dr. Tal Yeager Drains None Anesthesia Type MAC Complication(s) none Disposition Recovery Room / PACU (Stable) I attest to the content of the Intraoperative Record and any orders documented therein. Any exceptions are noted below.
--- NOTE | 2017-12-16 08:01 | Discharge Instructions ---
Discharge Instructions Date of Service Dec 16, 2017. Admission Reason for Admission: Left Carpal Tunnel Syndrome Discharge Discharge Diagnosis / Problem: Status post Left Endoscopic Carpal Tunnel Release Discharge Goals Goal(s): Decrease discomfort, Improve function, Increase independence Activity Recommendations Activity Limitations: per Instructions/Follow-up section Lifting Limitations: no more than 5 pounds May Resume Sexual Activity: when tolerated Shower/Bathe: may shower/bathe in 3 days Driving or Machine Use: Not while on Narcotics . Instructions / Follow-Up Instructions / Follow-Up Dr. Yeager in 10-15 days. PT in 3-5 days. Current Hospital Diet Patient's current hospital diet: Regular Diet Discharge Diet Recommended Diet: Regular Diet Procedures Procedures Performed: Endoscopic Left Carpal Tunnel Release Pending Studies Studies pending at discharge: no Medical Emergencies . Who to Call and When: Medical Emergencies: If at any time you feel your situation is an emergency, please call 911 immediately. . Non-Emergent Contact Non-Emergency issues call your: Surgeon Call Non-Emergent contact if: temperature is above 101.5, your pain is not controlled, wound has increased drainage, wound has increased redness . "Provider Documentation" section prepared by Tal Yeager. . VTE Core Measure Inpt VTE Proph given/why not?: Other Anticoagulation, T.E.D. Stockings
--- NOTE | 2017-12-16 08:24 | Anesthesiology Progress Note ---
Anesthesia Post Op Note Date & Time Dec 16, 2017 at 08:24 Vital Signs Pain Intensity: 0 Vital Signs Past 12 Hours Date Time Temp Pulse Resp B/P (MAP) Pulse Ox O2 Delivery O2 Flow Rate FiO2 12/16/17 08:16 72 21 126/66 95 12/16/17 08:16 68 21 12/16/17 08:11 75 19 120/65 12/16/17 08:11 19 12/16/17 08:10 74 23 95 12/16/17 08:10 76 23 12/16/17 08:06 129/70 12/16/17 08:05 70 18 12/16/17 08:05 71 18 99 12/16/17 08:01 137/71 12/16/17 08:00 36.7 70 16 137/71 98 Oxymask 10 12/16/17 05:58 36.7 83 20 155/74 (101) 94 Room Air Notes Mental Status: alert / awake / arousable, participated in evaluation Pt Amnestic to Procedure: Yes Nausea / Vomiting: adequately controlled Pain: adequately controlled Airway Patency, RR, SpO2: stable & adequate BP & HR: stable & adequate Hydration State: stable & adequate Anesthetic Complications: no major complications apparent
[2017-12-16 09:41] VITALS: BP 149/64; PULSE 66; TEMP 36.7; O2SAT 97
== END | disposition home or self-care (01) ==
LOC: C.ACU 05:29
PROVIDERS: ATTEND Orthopaedic Surgery Sports Medicine
DX: G56.03 Carpal tunnel syndrome, bilateral upper limbs (principal); K21.9 Gastro-esophageal reflux disease without esophagitis; I48.91 Unspecified atrial fibrillation; I10 Essential (primary) hypertension; E66.01 Morbid (severe) obesity due to excess calories; Z68.43 Body mass index [BMI] 50.0-59.9, adult; Z79.01 Long term (current) use of anticoagulants; Z82.49 Family history of ischemic heart disease and other diseases of the circulatory system; Z83.3 Family history of diabetes mellitus; Z80.0 Family history of malignant neoplasm of digestive organs; Z82.3 Family history of stroke

== ENCOUNTER → 2018-02-17 | Outpatient (CLI) | payer OTHER ==
[~2018-02-17] MED LIST changes: -ATROPINE SULFATE 0.1 MG/ML 5ML SYR IV PRN; -CEFAZOLIN 2000MG IV PUSH 15 ML IV SCH; -EpHEDrine SULFATE INJ 50 MG/ML AMP IV PRN; -FENTANYL CITRATE INJ 50 MCG/1 ML 2 ML VIAL IV PRN; -FENTANYL CITRATE INJ 50 MCG/1 ML 2 ML VIAL ONE; -HYDROCODONE/ACETAMIN 5/325MG TAB PO PRN; -HYDROmorphone INJ 2 MG/ML SYR/VIAL ONE; -LACTATED RINGER'S 1000ML 1,000 ML IV SCH; -LIDOCAINE HCL 2% 2 ML VIAL (20MG/ML) ONE; -LIDOCAINE HCL 2% LOCAL 50ML VIAL ONE; -LIDOCAINE/EPINEPHRINE 1% 20 ML VIAL ONE; -MIDAZOLAM HCL 1 MG/ML 2ML VIAL ONE; -MoRPHine SULFATE 2 MG/ML CARP IV PRN; -MoRPHine SULFATE 4 MG/ML 1 ML CARP\\VIAL IV PRN; -ONDANSETRON INJ 2 MG/ML 2 ML VIAL IV PRN; -ONDANSETRON INJ 2 MG/ML 2 ML VIAL ONE; -OXYCODONE/ACETAMINOPHEN 5-325 TAB PO PRN; -PROPOFOL IV EMULSION 10 MG/ML 20 ML VIAL IV ONE; -SODIUM CHLORIDE 0.9% 1000ML 1,000 ML IV SCH
--- NOTE | 2018-02-18 06:47 | PAP/PSG TECHNICIAN REPORT ---
[facility] Wire Loop Machine Operator Polysomnogram Report Study name: None Report date: 02/18/2018 Study date: 02/17/2018 Referring Physician: Dr. Huber Sanford DO Name: GINA ANDREA Maria G Interpreting Physician: Huber Sanford D.O. Date of : 1955 Wire Loop Machine Operator: Freda Henley RPSCELIA. Sex: Female Age: 63 StudyType: PSG Weight: 256 lbs Height: 63 years, Height 5' 0" Neck Circum: BMI: 49.99 Medications: LANSOPRAZOLE 30 MG, XARELTO 20 MG, CALCIUM 600 + D, LISINOPRIL-HYDROCHLOROTHIAZIDE 20-25 MG, VIT D3 2000 UNIT, METOPROLOL 50 MG Patient History 62 yr-old female here for a baseline study. SHe has a histroy of atrial fibrillation, HTN, and obesity. Her Donnellson scale is 5. THe test was started on room air. ETCO2 tesitng was not utilized during this stydy. Room 3 Parameters Monitored NPSG: E1-M2, E2-M1, Fp1-M2, Fp2-M1, F3-M2, F4-M2, F4-M1, C3-M2, C4-M2, C4-M1, O1-M2, O2-M2, O2-M1, T3-M2, T4-M1, P3-M2, P4-M1, CHIN1, CHIN2, HR, EKG, Legs, PFLOW, SNOR, FLOW, CFLOW, Tidal Volume, THOR, ABDO, SpO2, PLTH, CPRESS, ETCO2 Wave, ETCO2, pH Sleep Architecture Sleep Stages Time at Lights Off 11:16:12 PM STAGES Time (min.) TST (%) Time at Lights On 5:22:42 AM Wake 94.5 -- Total Recording Time (TRT) 366.50 min. N1 84.5 31 Total Sleep Period (TSP) 350.0 min. N2 118.0 43 Total Sleep Time (TST) 272.0min. N3 53.5 20 Awake Time 94.5 min. REM 16.0 6 Wake after Sleep Onset 78.0 min. Sleep Efficiency (SE) 74 % Sleep Onset Latency (LEN) 16.5 min. Number of Stage 1 Shifts None Awakenings 50 Stage Changes 203 Number of REM periods 2 REM 16.0 6 REM Latency 89.0 min. NREM 256.0 94 Body Position Analysis Supine Right Left Side Prone Vertical Total Sleep Time (min.) 44.1 0.0 241.7 241.71 0.0 0.4 Total Sleep Time (%) 11% 0% 89% 89 0% N/A% Total Sleep Time REM (min.) 2.3 0.0 13.7 None 0.0 0.0 Total Sleep Time NREM (min.) 28.0 0.0 228.0 None 0.0 0.0 Intermittent Wake (min.) 13.8 0.0 80.2 None 0.0 0.4 Total Sleep Period (%) 9% None None None None None Arousals Myoclonus (PLM) * Events Count Index Events Count Index Spontaneous 53 12 Events Awake (PLMW) 253 160.6 Respiratory 50 11.9 Events Asleep w/ Arousal (PLMA) 72 15.9 PLM 71 16 Events Asleep w/o Arousal (PLMS) 163 36.0 Snoring 15 3 Total Asleep 235 51.8 Total 189 42 Total 488 80 Respiratory Analysis * CA OA MA CH H RERA Total Count 0 18 0 0 79 13 97 Index 0.0 4.0 0.0 0 17.4 3 24.3 Mean Duration 0.0 14.9 0.0 0.00 19.5 16.6 18.4 Longest Duration 0.0 20.1 0.0 0.00 0.0 18.8 34.5 Respiratory Event Summary Total Supine ~Supine Right Left Prone REM NREM Apneas Count 18 0 18 N/A 18 N/A 1 17 Index 4.0 0 4 N/A 4.5 N/A 4 4 Hypopneas (4% Desat) Count 79 4 75 N/A 75 N/A 10 69 Index 17.4 7.9 19 N/A 18.6 N/A 37.5 16.2 Apneas & All Hypopneas Count 97 4 93 N/A 93 N/A 11 86 Index 21.4 8 23 N/A 23 N/A 41.3 20.2 Respiratory Events (Asphalt Plant Operator+All Hyp+RERA) Count 97 5 105 N/A 105 N/A 11 86 Index 24.3 10 26 N/A 26.1 N/A 41.3 23.2 Respiratory Related Arousal Count 50 5 52 N/A 52 N/A 0 54 Index 11.9 4 13 N/A 13 N/A 0 13 Snoring Analysis Supine Right Left Prone REM NREM Total Snore duration 48.2 min Snores count 258 N/A 1,626 N/A 72 1,812 1,884 Snore mean duration 1.5 Sec Snores index 511 N/A 404 N/A 270.0 424.7 415.6 TST with snoring (%) 17.7% Desaturation Event Summary: Minimum %SpO2 Event Count Mean/Min/Max Duration(sec.) Desaturation Index % Time In Bed > 90 113 27.1 / 11.3 / 60.0 32.0 57.8 86 - 90 33 26.0 / 9.8 / 55.3 13.4 40.3 81 - 85 2 16.0 / 12.5 / 19.5 17.3 1.9 76 - 80 0 N/A 0.0 0.1 71 - 75 0 N/A 0.0 0.0 66 - 70 0 N/A 0.0 0.0 61 - 65 0 N/A 0.0 0.0 56 - 60 0 N/A 0.0 0.0 51 - 55 0 N/A 0.0 0.0 < 50 0 N/A 0.0 0.0 Total REM NREM Awake <50% 0.0 min. 0.0 min. 0.0 min. 0.0 min. 51 - 60% 0.0 min. 0.0 min. 0.0 min. 0.0 min. 61 - 70% 0.0 min. 0.0 min. 0.0 min. 0.0 min. 71 - 80% 0.3 min. 0.3 min. 0.0 min. 0.0 min. 81 - 90% 154.4 min. 13.6 min. 129.3 min. 11.5 min. 91 - 100% 211.6 min. 2.1 min. 126.5 min. 82.9 min. Average 91 88 90 92 Minimum SpO2 78 78 81 86 Desaturation Event Index 21.8 48.8 22.7 15.2 # Desat. Events below 89% 57 13 40 4 Time(%) with Saturation below 89% 16.2 2.2 13.7 0.3 Time(min.) with Saturation below 89% 59.3 8.0 50.0 1.2 Time (mins) REM (mins) NREM (mins) % of TST SpO2 Below 90% 88 13 N75 36.3 SpO2 Below 88% 24 0 0 14 Heart Rate Analysis Min (bpm) Max (bpm) Average (bpm) Awake 54 82 66 NREM 43 81 63 REM 48 75 62 Overall 43 81 63 Supplemental O2 Values Minimum O2 level: None Value Start Time End Time Wire Loop Machine Operator Comments Ms. Sevilla slept in the left and supine positions. Cardiac arrhythmias were noted (please refer to the printouts). PLMs were noted. No bruxism noted. Snoring was noted and scored as a 3 on a scale of 1 through 5. (0=no snoring, 5=snoring loud enough to be heard through a closed door or down the gonz[address] way). SHe did not wake up to use the restroom during the night. Ms. Sevilla stated that she slept a little worse than usual. The final report will be interpreted and signed by a sleep physician. The completed physician report will then be placed in the patient medical record. Therapy (cm H2O) 0 TIB (min.) 366.5 TST (min.) 272.0 Sleep Onset (min.) 16.5 REM Onset From Sleep (min.) 89.0 Sleep Efficiency % 74 Wakefulness (%) 26 Wakefulness (min.) 94.5 NREM 1 (%) 31 NREM 1 (min.) 84.5 NREM 2 (%) 43 NREM 2 (min.) 118.0 NREM 3 (%) 20 NREM 3 (min.) 53.5 REM (%) 6 REM (min.) 16.0 # Arousals 189 Arousal Index 42 # Snore 1,884 Snore Index 415.6 AHI 21.4 AHI Supine 8 AHI Non-Supine 23 NREM AHI 20.2 REM AHI 41.3 RDI 24.3 # Obstructive Apnea 18 # Central Apnea 0 # Mixed Apnea 0 # Hypopneas 79 RERAs 13 Total Respiratory Events 112 Time Below SpO2 89% (min.) 58.0 Mean NREM SpO2 (%) 90 Mean REM SpO2 (%) 88 Mean Sleep SpO2 (%) 90 Min NREM SpO2 (%) 81 Min REM SpO2 (%) 78 Position Supine (min.) 44.1 Position Non-supine (min.) 241.7 LM Index Sleep 51.8 LM Index NREM 53.4 LM Index REM 26.3 Mean Heart Rate (bpm) 63 Min Heart Rate (bpm) 43
--- NOTE | 2018-02-20 18:12 | POLYSOMNOGRAPH REPORT ---
CLINICAL DATA: The patient is a 63-year-old female who has symptoms of snoring. She has a history of atrial fibrillation, hypertrophic obstructive cardiomyopathy, and hypertension. She completed the [place] sleepiness scale and had a score of 5. Her BMI is elevated at 49.99. This was an in-lab overnight polysomnography. SLEEP ARCHITECTURE: The total sleep period was 350 minutes. The total sleep time was 272 minutes. The sleep efficiency is moderately reduced to 74%. The sleep latency was normal at 16.5 minutes. Wake after sleep onset was increased to 78 minutes. The REM latency was normal at 89 minutes. There was only 1 REM period during the night. Sleep consisted of stage N1 31%, stage N2 43%, stage N3 20%, stage REM 6%. AROUSAL DATA: The patient had 189 arousals including 53 spontaneous arousals, 50 respiratory arousals, 71 PLM arousals, and 15 snoring arousals. The arousal index was elevated at 42. PLM DATA: The patient had 235 periodic limb movements of sleep for a PLM index of 51.8. There were 72 arousals, associated with limb movements for a PLM arousal index of 15.9. EKG: The underlying cardiac rhythm was normal sinus. There were occasional episodes of supraventricular premature contractions. The cardiac rates ranged from 43-81 beats per minute. The average heart rate was 63 beats per minute. RESPIRATORY DATA: The patient had a total of 97 respiratory events including 18 obstructive apneas and 79 hypopneas. Hypopneas were scored according to the 4% desaturation rule. The longest apnea was 20.1 seconds. The mean duration of hypopneas was 19.5 seconds. There were 13 RERAs. The apnea-orthopnea index was elevated at 21.4 events per hour. This reflects moderate obstructive sleep apnea. OXIMETRY DATA: The average saturation for the night was 91%. The minimum saturation was 78%. There was a total of 59.3 minutes with saturations less than 89%. PSYCHOLOGICAL EXAMINER COMMENTS: The patient slept in the left and supine positions. Cardiac arrhythmias were noted. PLMs were noted. No bruxism noted. Snoring was noted and scored as a 3 on a scale of 1 through 5. She did not wake up to use the restroom during the night. She stated that she slept a little worse than usual. IMPRESSIONS: 1. Moderate obstructive sleep apnea. 2. Periodic limb movement disorder. COMMENTS: Patient has an abnormal sleep architecture. There was a significant increase in stage N1 suggesting poorly consolidated sleep. There was minimal REM sleep. She had frequent periodic limb movements with a modest number of arousals. She denied any significant symptoms of restless legs by history. Her oxygenation was intermittently abnormal as noted above. There was an increased frequency of events during REM sleep. Although REM sleep was limited. The apnea-hypopnea index during REM was 41.3. The patient has a history of atrial fibrillation as well as hypertrophic obstructive cardiomyopathy and hypertension. These are significant comorbidities for obstructive sleep apnea. Thus treatment would be advised. RECOMMENDATIONS: 1. It is advised that the patient be given a trial of nasal CPAP. 2. Weight loss is advised in light of the elevation of body mass index at 49.99. 3. If possible, the patient should avoid sleeping in the supine position. It should be noted that she only spent approximately 9% of the night of the study in the supine position. 4. The patient should be advised of the appropriate principles of sleep hygiene including having a regular sleep-wake schedule and allowing sufficient sleep time of approximately 7.5 hours per night.
== END ==
LOC: C.NEUR 20:00
PROVIDERS: ATTEND Internal Medicine Pulmonary Disease
DX: G47.33 Obstructive sleep apnea (adult) (pediatric) (principal); G47.61 Periodic limb movement disorder; I48.91 Unspecified atrial fibrillation; I42.1 Obstructive hypertrophic cardiomyopathy

== ENCOUNTER 2019-12-02 06:27 | Inpatient (IN) ==
[2019-12-02] MEDS ORDERED: METOPROLOL TARTRATE 1 MG/ML VIAL IV ONE (06:50)
[2019-12-02] MEDS ORDERED: ASPIRIN CHEW 324 MG PO STA (06:52)
[2019-12-02] MEDS ORDERED: METOPROLOL TARTRATE 1 MG/ML VIAL IV STA (06:52)
[2019-12-02] MEDS ORDERED: SODIUM CHLORIDE 0.9% 1000ML 1,000 ML IV SCH (07:00)
[2019-12-02 07:10] LABS: Basophils # (auto) 0.01 K/uL (0-0.2); Basophils % (auto) 0.1 %; Eosinophils # (auto) 0.09 K/uL (0-0.5); Eosinophils % (auto) 1.2 %; Hematocrit (blood only) 40.1 % (37-47); Hemoglobin 13.2 g/dL (12.0-16.0); Immature Granulocytes # (auto) 0.01 K/uL (0.00-0.02); Immature Granulocytes % (auto) 0.1 %; Lymphocytes # (auto) 1.25 K/uL (1.2-3.4); Lymphocytes % (auto) 16.5 %; Mean Corpuscular Hemoglobin 30.1 pg (25-34); Mean Corpuscular Hgb Conc 32.9 g/dL (32-36); Mean Corpuscular Volume 91.3 fL (80-100); Monocytes % (auto) 7.9 %; Neutrophils # (auto) 5.61 K/uL (1.4-6.5); Neutrophils % (auto) 74.2 %; Platelet Count 252 K/uL (130-400); RDW Coefficient of Variation 14.5 % (11.5-14.5); RDW Standard Deviation 48.3 fL (36.4-46.3); Red Blood Count 4.39 M/uL (4.2-5.4); White Blood Count 7.57 K/uL (4.8-10.8)
--- NOTE | 2019-12-02 07:12 | XRay Report ---
SINGLE VIEW CHEST CLINICAL HISTORY: Atypical chest pain. FINDINGS: An AP, portable, upright chest radiograph is compared to study dated 12/26/2018. Correlation is made with chest CT dated 05/09/2017. The heart is top normal for projection noting atherosclerotic calcification of the thoracic aorta. The pulmonary vasculature is noncongested. There is left basila r consolidation and a small left pleural effusion. No pneumothorax is seen. The skeletal structures a re osteopenic. The bony thorax is grossly intact. Degenerative change is noted in the thoracic spine. IMPRESSION: There is left basilar consolidation and a small left pleural effusion. The appearance is typical for pneumonia/aspiration pneumonitis. Clinical correlation will be required and radiographic follow-up to resolution is recommended. ACT 112: Negative or not required by law. Electronically signed by: Natanael Duenas M.D. 12/02/2019 7:11 AM
[2019-12-02] MEDS: dilTIAZem HCL 125 MG in DEXTROSE 5% 100 ML IV SCH (07:14)
[2019-12-02 07:22] LABS: INR 1.2 (0.9-1.1); Partial Thromboplastin Ratio 1.2; Prothrombin Time 11.7 Seconds (9.0-12.0)
[2019-12-02 07:26] LABS: BUN Creatinine Ratio 19.6 (10-20); Blood Urea Nitrogen 23 mg/dl (7-18); Calcium 9.6 mg/dl (8.5-10.1); Carbon Dioxide 27 mmol/L (21-32); Chloride 101 mmol/L (98-107); Creatinine Clr Calc Pharmacy 64.8 ml/min; Est GFR (African American) 59.1; Glucose 143 mg/dl (70-99); Lipase 142 U/L (73-393); Potassium 4.4 mmol/L (3.5-5.1); Sodium 136 mmol/L (136-145)
[2019-12-02 07:30] LABS: Troponin I < 0.015 ng/ml (0-0.045)
--- NOTE | 2019-12-02 08:04 | History & Physical Report ---
Date of Service December 02, 2019 Assessment & Plan (1) Atrial fibrillation with RVR: - Admit to tele -Patient missed all her medications yesterday, likely contributing to her rebound into A. fib now with RVR - Continue diltiazem drip, likely can convert to p.o. metoprolol later today if patient's rhythm breaks to NSR-she took metoprolol 200 mg at approximately 4 AM, initially was given Lopressor IV in the ER however dropped her blood pressure to the 90s/50s and subsequently required a 1 L NSS bolus to improve BP. -Can trial metoprolol tartrate 50 mg later this morning if converts to NSR and transition off the diltiazem gtt, followed by another dose later this afternoon. -Xarelto p.o. dose to be given now -No need for repeat echo at this time -Add troponin x1 more set at 1300 -PT/OT (2) HOCM (hypertrophic obstructive cardiomyopathy): - Last echo completed in Dec 2018 showed normal left ventricular size and function, severe LVH most pronounced at the anterior septum, resting LVOT gradient of 10 mmHg, and a Valsalva LVOT obstruction of 49 mmHg. She was scheduled to have repeat echo at her next visit as an outpatient, and 6 mo. (3) HTN (hypertension): - BP currently 97/58, improved s/p bolus, monitor on cardizem gtt - Holding lisinopril/HCTZ, pt last took metoprolol at 4am today (4) Aortic valve sclerosis: - Noted (5) Dyslipidemia: -Continue statin therapy (6) Morbid obesity: -BMI of 57.7, diet and exercise to be encouraged upon discharge (7) Schatzki's ring: -Follows with GI as an outpatient, no complaints of indigestion, continue lansoprazole (8) GERD (gastroesophageal reflux disease): (9) Osteoarthritis of knee: -Stable (10) ALEM (obstructive sleep apnea): - Pt does not wear cpap HS (11) Vitamin D deficiency: - Cont supplementation (12) Leg wound, right: - Right posterior calf wound present since having cellulitis which started ~2 weeks ago. Continue bactrim for now as per home meds. - Wound consulted, pt has outpt wound clinic referral scheduled for this week. (13) DVT prophylaxis: - ana on left leg, heparin subq CODE: Full Dispo: From home, possible if converts back to NSR that she could be discharged within next 24 hrs. History of Present Illness Primary Care Provider: Naima Lee DO This is a 64 yo F with PMHx of afib on xarelto, HTN, GERD, osteoarthritis, Schatzki's ring who presented to the ER with chest palpitations and chest heaviness which started early this morning which woke her from sleep. Patient notes that in the last 2 days she has not been feeling very well. She thought that she had some sort of viral infection, had few sweats and chills, generalized malaise, slightly nauseous, but had no other specific complaints. She did not take any of her medication yesterday which would include her beta- pau and anticoagulation. Last night around 3 AM the patient woke up feeling palpitations, and took Metoprolol XL 200 mg at 4 AM, without improvement of her symptoms she presented here. Since being in the ER the patient was given Lopressor 5 mg IV which in response dropped her blood pressures to the 90s over 80s, was bolused with 1 L NSS which improved blood pressure. She was started on a diltiazem drip. Allergies Allergy/AdvReac Type Severity Reaction Status Date / Time doxycycline Allergy Mild Tingling Verified 12/02/19 07:39 sensation in mouth. Home Medications Home Medications Medication Instructions Recorded Confirmed Type Calcium 600 + D(3) 2 cap PO QAM 10/20/18 12/02/19 History metoprolol succinate 200 mg 200 mg PO QAM #90 tab 06/20/19 12/02/19 Rx tablet,extended release 24 hr furosemide 20 mg tablet 20 mg PO DAILY PRN #30 tab 09/20/19 12/02/19 Rx lansoprazole 30 mg capsule,delayed See Rx Instructions .ROUTE 10/25/19 12/02/19 Rx release .COMPLEX #30 capsule sulfamethoxazole 800 1 tab PO BID 7 Days #14 tab 11/27/19 12/02/19 Rx mg-trimethoprim 160 mg tablet Xarelto 20 mg PO QAM 12/02/19 12/02/19 History lisinopril-hydrochlorothiazide 1 tab PO QAM 12/02/19 12/02/19 History qnuxbgutoded-[id number]-[id number] 1 tab PO QAM 12/02/19 12/02/19 History [Multivitamin 50 Plus] Past Med/Surg History Medical History Aortic valve sclerosis Arthritis Atrial fibrillation on Xarelto, follows with Dr. Solis Dyslipidemia GERD (gastroesophageal reflux disease) HOCM (hypertrophic obstructive cardiomyopathy) Hypertension Lymphedema Morbid obesity On anticoagulant therapy xarelto ALEM (obstructive sleep apnea) Osteoarthritis of knee PLMD (periodic limb movement disorder) Schatzki's ring Tracheoesophageal fistula, esophageal atresia and stenosis, congenital Vitamin D deficiency Surgical History History of carpal tunnel release left History of colonoscopy History of esophagogastroduodenoscopy (EGD) History of tonsillectomy History of tooth extraction Family History Mother Myocardial infarction Diabetes Coronary heart disease Brother Diabetes Sister Diabetes Myocardial infarction Sister Diabetes Pancreatic cancer Sister Diabetes Kidney disease Brother No problems noted. Social History Preferred Language: Ukrainian Communication Ability: Effective Visual Impairment: No Limitations Hearing Ability: Normal Rehabilitation Consultant Required: No Beliefs That Will Affect Care: Gnosticist Gnosticist Beliefs: TEMPLE marital status: Current Living Situation: Spouse current occupational status: other Feels Safe at Home: Yes Smoking Status: Never smoker Second Hand Exposure: Yes (parents smoked) ; Hx Alcohol Use: No Hx Substance Use: No caffeine: No Dental Care, Regularly: Yes Physical Activity Frequency: Does not Exercise Seatbelt Use: always Sunscreen Use: Yes Review of Systems Review of Systems: Constitutional: As per HPI, but generalized malaise now improved. No fever, sweats or chills today. Eyes: No diplopia, no worsening or blurred vision ENT: normal hearing, no trouble swallowing Respiratory: No cough, sputum, dyspnea at rest or on exertion Cardiovascular: As per HPI. No chest pain, tightness. Abdomen: No pain, nausea, vomiting, diarrhea or constipation Musculoskeletal: No joint pain, calf pain, swelling Neurologic: No weakness, numbness/tingling, or balance problems Psychiatric: No anxiety or depression Skin: + posterior calf wound which she has been taking Bactrim for, awaiting wound outpatient, otherwise No rash or itch Physical Exam Physical Exam: General: awake, alert, no apparent distress, + morbidly obese Head: Normocephalic, atraumatic ENT: PERRL, EOMI, no pharyngeal exudate, mucous membranes moist Chest: Clear to auscultation, on room air with O2 sats =92%, no adventitious breath sounds Cardiac: Irregularly irregular, HR in 120s at bedside, no murmur, no JVD, normal peripheral pulses, good capillary refill Abdominal: NABS x 4 quadrants, soft, nondistended, nontender to palpation, no rebound, guarding or tenderness Extremities: Normal inspection, no peripheral edema or erythema, right posterior calf with wound measuring ~2 cm in diameter, weeping, surrounding erythema extends ~4 inches in diameter, left calf nontender to palpation Psych: Normal mood and affect Neuro: AAO x 3, no gross motor deficits, speech is clear, no peripheral sensory deficits Results & Data Vital Signs (Past 12 Hours) Vital Signs Temp Pulse Pulse Resp BP BP Pulse Ox 12/02/19 06:56 132 H 20 93/71 L 93 12/02/19 06:37 36.6 C 136 H 18 99/76 L 93 Diagnostic Findings SINGLE VIEW CHEST CLINICAL HISTORY: Atypical chest pain. FINDINGS: An AP, portable, upright chest radiograph is compared to study dated 12/26/2018. Correlation is made with chest CT dated 05/09/2017. The heart is top normal for projection noting atherosclerotic calcification of the thoracic aorta. The pulmonary vasculature is noncongested. There is left basilar consolidation and a small left pleural effusion. No pneumothorax is seen. The skeletal structures are osteopenic. The bony thorax is grossly intact. Degenerative change is noted in the thoracic spine. IMPRESSION: There is left basilar consolidation and a small left pleural effusion. The appearance is typical for pneumonia/aspiration pneumonitis. Clinical correlation will be required and radiographic follow-up to resolution is recommended. ACT 112: Negative or not required by law. Electronically signed by: Natanael Duenas M.D. 12/02/2019 7:11 AM ECG Additional Comments: 02-DEC-2019 06:37:17 [facility]-EDSTAT ROUTINE RETRIEVAL Atrial fibrillation with rapid ventricular response ST & T wave abnormality, consider lateral ischemia Abnormal ECG When compared with ECG of 14-NOV-2017 06:25, Atrial fibrillation has replaced Sinus rhythm Vent. rate has increased BY 67 BPM 25mm/s 10mm/mV 150Hz 9.0.9 12SL 241 THAD: 10 Referred by: REFERRED SELF Unconfirmed Vent. rate 136 BPM AL interval * ms QRS duration 86 ms QT/QTc 306/460 ms P-R-T axes * -3 92 Code Status & VTE Plan Code Status Full code-discussed with patient at bedside Supervising Physician Co-Signing Physician Notes During my face to face encounter, I performed a physical examination and history. I reviewed above note and agree with it. Patient has been admitted with Atrial fibrillation. Will monitor patient and see how she responds to the beat blockers. This may be due to the fact that she did not take her medications the day earlier. Will check her troponin levels. If elevated, may consider, keeping patient overnight. Update: Patient having a fever, will obtain blood cultures and will monitor. PG Care Time/CCT Total # of Minutes Spent Total Time Spent with Patient: Total time spent is greater than 50% in coordination of care (as documented) at patient's floor/unit and/or counseling patient: Coding Level of Care Code 92501 Initial Inpt Care Lvl 3 Diagnoses Atrial fibrillation with RVR I48.91 HOCM (hypertrophic obstructive cardiomyopathy) I42.1 HTN (hypertension) I10 Aortic valve sclerosis I35.8 Dyslipidemia E78.5 Morbid obesity E66.01 Schatzki's ring K22.2 GERD (gastroesophageal reflux disease) K21.9 Esophagitis presence: without esophagitis Osteoarthritis of knee M17.10 ALEM (obstructive sleep apnea) G47.33 Vitamin D deficiency E55.9 Leg wound, right S81.801A DVT prophylaxis Z29.9 (1) GERD (gastroesophageal reflux disease) Esophagitis presence: without esophagitis Qualified Code(s): K21.9 - Gastro-esophageal reflux disease without esophagitis
--- NOTE | 2019-12-02 10:57 | Emergency Department Note ---
Entered by Rosie Moore acting as a scribe for Rick Savage History of Present Illness General Chief complaint: Cardiac Assessment Stated complaint: chest pain Time Seen by Provider: 12/02/19 06:41 Source: patient Limitations: no limitations History of Present Illness Onset (ago): hour(s) (a few) Location: chest Severity: mild and similar to prior episodes Pain Consistency: + constant Maximum Pain Intensity: 3 Quality: + other (chest pain) Associated symptoms: no nausea/vomiting and no shortness of breath The patient is a 64 year old female who presents to the Emergency Room with complaints of mild, constant chest pain that began a few hours ago. She reports that the symptoms feel similar to her past episodes of A-fib, noting that she takes Xarelto and metoprolol. The patient notes that she did not take her medications yesterday, as she was feeling nauseous. She states that she did take one dose of metoprolol about 4 hours ago. She denies any SOB or nausea. The patient denies any drug use. Home Medications Home Medications Medication Instructions Recorded Confirmed Type Calcium 600 + D(3) 2 cap PO QAM 10/20/18 12/02/19 History metoprolol succinate 200 mg 200 mg PO QAM #90 tab 06/20/19 12/02/19 Rx tablet,extended release 24 hr furosemide 20 mg tablet 20 mg PO DAILY PRN #30 tab 09/20/19 12/02/19 Rx lansoprazole 30 mg capsule,delayed See Rx Instructions .ROUTE 10/25/19 12/02/19 Rx release .COMPLEX #30 capsule sulfamethoxazole 800 1 tab PO BID 7 Days #14 tab 11/27/19 12/02/19 Rx mg-trimethoprim 160 mg tablet Xarelto 20 mg PO QAM 12/02/19 12/02/19 History lisinopril-hydrochlorothiazide 1 tab PO QAM 12/02/19 12/02/19 History ppveepnlozxn-goqhzljg-mxaatr 1 tab PO QAM 12/02/19 12/02/19 History [Multivitamin 50 Plus] Allergies Allergy/AdvReac Type Severity Reaction Status Date / Time doxycycline Allergy Mild Tingling Verified 12/02/19 07:39 sensation in mouth. Past Med/Surg History Medical History Aortic valve sclerosis Arthritis Atrial fibrillation on Xarelto, follows with Dr. Solis Dyslipidemia GERD (gastroesophageal reflux disease) HOCM (hypertrophic obstructive cardiomyopathy) Hypertension Lymphedema Morbid obesity On anticoagulant therapy xarelto ALEM (obstructive sleep apnea) Osteoarthritis of knee PLMD (periodic limb movement disorder) Schatzki's ring Tracheoesophageal fistula, esophageal atresia and stenosis, congenital Vitamin D deficiency Surgical History History of carpal tunnel release left History of colonoscopy History of esophagogastroduodenoscopy (EGD) History of tonsillectomy History of tooth extraction Family History Mother Myocardial infarction Diabetes Coronary heart disease Brother Diabetes Sister Diabetes Myocardial infarction Sister Diabetes Pancreatic cancer Sister Diabetes Kidney disease Brother No problems noted. Social History Preferred Language: Armenian Communication Ability: Effective Visual Impairment: No Limitations Hearing Ability: Normal Drum Tender Required: No Beliefs That Will Affect Care: Episcopal Episcopal Beliefs: [employer] marital status: Current Living Situation: Spouse current occupational status: other Other Information That Helps Us Care for You: No Feels Safe at Home: Yes Safety Concerns: Feels Safe At This Time Smoking Status: Never smoker Second Hand Exposure: Yes (parents smoked) ; Hx Alcohol Use: No Hx Substance Use: No caffeine: No Dental Care, Regularly: Yes Physical Activity Frequency: Does not Exercise Seatbelt Use: always Sunscreen Use: Yes Review of Systems See HPI for pertinent positives & negatives. and A total of 10 systems reviewed and were otherwise negative Physical Exam Vital Signs Vital Signs - 24 hr 12/02/19 06:33 12/02/19 06:37 12/02/19 06:41 Temperature 36.6 C Temperature Source Oral Pulse Rate 142 H 136 H 140 H Pulse Rate [Finger] Pulse Rate from SpO2 Sensor 144 H 144 H Respiratory Rate 24 18 19 Respiratory Effort / Characteristics Non-Labored Spontaneous Respiratory Depth Normal Respiratory Pattern Regular Blood Pressure 99/76 L 99/76 L Blood Pressure [Left Arm] Blood Pressure Mean 82 83 Blood Pressure Mean [Left Arm] Blood Pressure Position Lying Pulse Oximetry 94 93 95 Oxygen Delivery Method Room Air Sepsis Recent Fever Within 48 Hours No Sepsis Action Taken by Nursing No Action Required 12/02/19 06:45 12/02/19 06:56 12/02/19 07:00 Temperature Temperature Source Pulse Rate 135 H 142 H 116 H Pulse Rate [Finger] 132 H Pulse Rate from SpO2 Sensor 119 H 120 H Respiratory Rate 25 H 24 22 Respiratory Effort / Characteristics Respiratory Depth Respiratory Pattern Blood Pressure 93/71 L 82/65 L Blood Pressure [Left Arm] 93/71 L Blood Pressure Mean 77 70 Blood Pressure Mean [Left Arm] 78 Blood Pressure Position Pulse Oximetry 94 93 92 Oxygen Delivery Method Room Air Sepsis Recent Fever Within 48 Hours Sepsis Action Taken by Nursing 12/02/19 07:03 12/02/19 07:11 12/02/19 07:15 Temperature Temperature Source Pulse Rate 123 H 145 H 146 H Pulse Rate [Finger] Pulse Rate from SpO2 Sensor 140 H 136 H 142 H Respiratory Rate 19 23 21 Respiratory Effort / Characteristics Respiratory Depth Respiratory Pattern Blood Pressure 76/65 L 96/77 L 124/77 Blood Pressure [Left Arm] Blood Pressure Mean 67 82 89 Blood Pressure Mean [Left Arm] Blood Pressure Position Pulse Oximetry 90 93 93 Oxygen Delivery Method Sepsis Recent Fever Within 48 Hours Sepsis Action Taken by Nursing 12/02/19 07:16 12/02/19 07:30 12/02/19 07:42 Temperature Temperature Source Pulse Rate 144 H 135 H 122 H Pulse Rate [Finger] Pulse Rate from SpO2 Sensor 122 H 129 H 131 H Respiratory Rate 20 21 18 Respiratory Effort / Characteristics Respiratory Depth Respiratory Pattern Blood Pressure 100/78 110/87 Blood Pressure [Left Arm] Blood Pressure Mean 83 105 Blood Pressure Mean [Left Arm] Blood Pressure Position Pulse Oximetry 94 92 93 Oxygen Delivery Method Sepsis Recent Fever Within 48 Hours Sepsis Action Taken by Nursing 12/02/19 07:45 12/02/19 08:00 12/02/19 08:01 Temperature Temperature Source Pulse Rate 129 H 124 H 128 H Pulse Rate [Finger] Pulse Rate from SpO2 Sensor 128 H 123 H 118 H Respiratory Rate 21 24 21 Respiratory Effort / Characteristics Respiratory Depth Respiratory Pattern Blood Pressure 99/78 L 97/58 L Blood Pressure [Left Arm] Blood Pressure Mean 84 60 Blood Pressure Mean [Left Arm] Blood Pressure Position Pulse Oximetry 91 93 93 Oxygen Delivery Method Sepsis Recent Fever Within 48 Hours Sepsis Action Taken by Nursing 12/02/19 08:15 12/02/19 08:30 12/02/19 08:45 Temperature Temperature Source Pulse Rate 121 H 132 H 139 H Pulse Rate [Finger] Pulse Rate from SpO2 Sensor 111 H 142 H 120 H Respiratory Rate 21 27 H 20 Respiratory Effort / Characteristics Respiratory Depth Respiratory Pattern Blood Pressure 99/66 L 91/67 L Blood Pressure [Left Arm] Blood Pressure Mean 78 78 Blood Pressure Mean [Left Arm] Blood Pressure Position Pulse Oximetry 92 92 92 Oxygen Delivery Method Sepsis Recent Fever Within 48 Hours Sepsis Action Taken by Nursing 12/02/19 09:00 12/02/19 09:01 12/02/19 09:15 Temperature Temperature Source Pulse Rate 121 H 113 H 132 H Pulse Rate [Finger] Pulse Rate from SpO2 Sensor 128 H 108 H 130 H Respiratory Rate 18 23 25 H Respiratory Effort / Characteristics Respiratory Depth Respiratory Pattern Blood Pressure 95/75 L 92/76 L Blood Pressure [Left Arm] Blood Pressure Mean 80 84 Blood Pressure Mean [Left Arm] Blood Pressure Position Pulse Oximetry 92 92 93 Oxygen Delivery Method Sepsis Recent Fever Within 48 Hours Sepsis Action Taken by Nursing 12/02/19 09:30 12/02/19 09:57 12/02/19 09:59 Temperature Temperature Source Pulse Rate 100 H 118 H Pulse Rate [Finger] Pulse Rate from SpO2 Sensor 114 H 98 H 108 H Respiratory Rate 18 18 Respiratory Effort / Characteristics Respiratory Depth Respiratory Pattern Blood Pressure 95/83 L 89/55 L Blood Pressure [Left Arm] Blood Pressure Mean 89 81 Blood Pressure Mean [Left Arm] Blood Pressure Position Pulse Oximetry 93 94 Oxygen Delivery Method Sepsis Recent Fever Within 48 Hours Sepsis Action Taken by Nursing 12/02/19 10:00 12/02/19 10:01 12/02/19 10:15 Temperature Temperature Source Pulse Rate 145 H 110 H 103 H Pulse Rate [Finger] Pulse Rate from SpO2 Sensor 127 H 109 H 96 H Respiratory Rate 20 17 19 Respiratory Effort / Characteristics Respiratory Depth Respiratory Pattern Blood Pressure 86/52 L 85/56 L Blood Pressure [Left Arm] Blood Pressure Mean 58 68 Blood Pressure Mean [Left Arm] Blood Pressure Position Pulse Oximetry 89 L 94 93 Oxygen Delivery Method Sepsis Recent Fever Within 48 Hours Sepsis Action Taken by Nursing 12/02/19 10:30 12/02/19 10:35 12/02/19 10:36 Temperature Temperature Source Pulse Rate 120 H 112 H 127 H Pulse Rate [Finger] Pulse Rate from SpO2 Sensor 111 H 116 H 135 H Respiratory Rate 23 20 17 Respiratory Effort / Characteristics Respiratory Depth Respiratory Pattern Blood Pressure 77/62 L 61/45 L Blood Pressure [Left Arm] Blood Pressure Mean 65 49 Blood Pressure Mean [Left Arm] Blood Pressure Position Pulse Oximetry 91 93 93 Oxygen Delivery Method Sepsis Recent Fever Within 48 Hours Sepsis Action Taken by Nursing 12/02/19 10:39 12/02/19 10:45 Temperature Temperature Source Pulse Rate 126 H 121 H Pulse Rate [Finger] Pulse Rate from SpO2 Sensor 110 H 130 H Respiratory Rate 20 26 H Respiratory Effort / Characteristics Respiratory Depth Respiratory Pattern Blood Pressure 100/44 L Blood Pressure [Left Arm] Blood Pressure Mean 93 Blood Pressure Mean [Left Arm] Blood Pressure Position Pulse Oximetry 92 92 Oxygen Delivery Method Sepsis Recent Fever Within 48 Hours Sepsis Action Taken by Nursing GENERAL: She is oriented to person, place, and time. She appears well-developed and well-nourished. She does not appear distressed. HENT: Exam performed. Head: Normocephalic and atraumatic. Right Ear: External ear normal. No mastoid tenderness. Left Ear: External ear normal. No mastoid tenderness. Mouth/Throat: The oropharynx is clear and moist. No trismus in the jaw. No dental abscesses or uvula swelling. No oropharyngeal exudate or tonsillar abscesses. EYES: Conjunctivae and EOM are normal. Pupils are equal, round, and reactive to light. Right eye exhibits no discharge. Left eye exhibits no discharge. No scleral icterus. NECK: Normal range of motion. Neck supple. No JVD present. No spinous process tenderness present. No carotid bruit present. No rigidity. No tracheal deviation and normal range of motion present. No Brudzinski's sign and no Kernig's sign noted. CV: Tachycardic rate, irregular rhythm, normal heart sounds and intact distal pulses. There is no peripheral edema. Palpable radial pulses bue. PULM/CHEST: Effort normal and breath sounds normal. No respiratory distress. No stridor. She has no wheezes. She has no rales. Chest Wall: She exhibits no tenderness. ABD: The abdomen is soft. Bowel sounds are normal. She has no distension. No mass is present. There is no tenderness. There is no rebound, no guarding, no Bassett's sign and no tenderness at McBurney's point. Rovsig negative MUSC/SKEL: Normal range of motion. There is no peripheral edema, tenderness or deformity. LYMPH: No cervical adenopathy. NEURO: She is alert and oriented to person, place, and time. She has normal strength. No cranial nerve deficit or sensory deficit. Coordination and gait normal. GCS eye subscore is 4. GCS verbal subscore is 5. GCS motor subscore is 6. cerbellar tests wnl. SKIN: Skin is warm and dry. She is not diaphoretic. PSYCH: She has a normal mood and affect. Her behavior is normal. Judgment and thought content normal. Course Course 0650: The patient was evaluated in room B11B. A complete history and physical exam was performed. The patient was placed on a cardiac monitored which showed A-fib with RVR. She stated that she didn't take her medications yesterday, but she took Metoprolol this morning. At time, there is no Cardizem boluses available in the ER due to a national shortage. The patient denied any cocaine usage, thus the patient was given a bolus of metoprolol 2.5 mg IV push. 0703: I reassessed the patient, and her blood pressure was 76/57. This was thought to be transient from the metoprolol IV push. The IV fluids were started. The Cardizem drip was held at this time. 0713: The patient's blood pressure was 96/56, and her heart rate was 150. The Cardizem drip was started. 0738: I spoke with Olga Lal, [facility] hospitalist, about the patient's case. She said the patient should be admitted to Dr. Warner, [facility] hospitalist, for further evaluation. Administered Medications Diltiazem HCl 125 mg/ Dextrose 125 mls @ 5 mls/hr IV .Q24H [facility]; Protocol Stop: 01/01/20 06:59 Last Titration: 12/02/19 10:38 Dose: 5 mg/hr, 5 mls/hr Documented by: [id number] Cosigned by: [id number] Titration: 12/02/19 07:42 Dose: 10 mg/hr, 10 mls/hr Documented by: [id number] Cosigned by: [id number] Titration: 12/02/19 07:35 Dose: 7.5 mg/hr, 7.5 mls/hr Documented by: [id number] Cosigned by: [id number] Admin: 12/02/19 07:14 Dose: 5 mg/hr, 5 mls/hr Documented by: [id number] Cosigned by: [id number] Discontinued Medications Aspirin (Aspirin) 324 mg PO NOW STA Stop: 12/02/19 06:53 Last Admin: 12/02/19 07:19 Dose: 324 mg Documented by: [id number] Sodium Chloride (Nss 1000ml) 1,000 mls @ 999 mls/hr IV .Q1H1M LAURENT Stop: 12/02/19 08:00 Last Admin: 12/02/19 07:00 Dose: 999 mls/hr Documented by: [id number] Metoprolol Tartrate (Lopressor) Confirm Administered Dose 5 mg IV .STK-MED ONE Stop: 12/02/19 06:51 Last Admin: 12/02/19 08:37 Dose: Not Given Documented by: [id number] Metoprolol Tartrate (Lopressor) 5 mg IV NOW STA Stop: 12/02/19 06:53 Last Admin: 12/02/19 06:54 Dose: 2.5 mg Documented by: [id number] Critical Care Time Critical Care Time: Yes Total Critical Care Time: 62 I have personally spent 62 minutes of critical care time in the direct management of this patient. This includes bedside care, interpretation of diagnostic studies, and testing, discussion with consultants, patient, and family members, and other required patient management activities. This 62 minutes is in excess of all separately billable procedures. Medical Decision Making Medical Records Attestation: I reviewed the patient's medical records. Home Medications Current Medication List: was personally reviewed by me Laboratory Data Attestation: I reviewed the patient's lab results. Result diagrams: 12/02/19 06:48 12/02/19 06:48 Lab Results 12/02/19 12/02/19 12/02/19 Range/Units 06:48 06:48 06:48 WBC 7.57 (4.8-10.8) K/uL RBC 4.39 (4.2-5.4) M/uL Hgb 13.2 (12.0-16.0) g/dL Hct 40.1 (37-47) % MCV 91.3 (80-100) fL MCH 30.1 (25-34) pg MCHC 32.9 (32-36) g/dL RDW Std Deviation 48.3 H (36.4-46.3) fL RDW Coeff of Francisco 14.5 (11.5-14.5) % Plt Count 252 (130-400) K/uL MPV 10.0 (7.4-10.4) fL Immature Gran % (Auto) 0.1 % Neut % (Auto) 74.2 % Lymph % (Auto) 16.5 % Bonner % (Auto) 7.9 % Eos % (Auto) 1.2 % Baso % (Auto) 0.1 % Immature Gran # (Auto) 0.01 (0.00-0.02) K/uL Neut # (Auto) 5.61 (1.4-6.5) K/uL Lymph # (Auto) 1.25 (1.2-3.4) K/uL Bonner # (Auto) 0.60 H (0.11-0.59) K/uL Eos # (Auto) 0.09 (0-0.5) K/uL Baso # (Auto) 0.01 (0-0.2) K/uL PT 11.7 (9.0-12.0) Seconds INR 1.2 H (0.9-1.1) APTT 32.0 H (21.0-31.0) Seconds PTT Ratio 1.2 Sodium 136 (136-145) mmol/L Potassium 4.4 (3.5-5.1) mmol/L Chloride 101 (98-107) mmol/L Carbon Dioxide 27 (21-32) mmol/L Anion Gap 8.0 (3-11) BUN 23 H (7-18) mg/dl Creatinine 1.15 (0.6-1.2) mg/dl Est Cr Clr Drug Dosing 64.8 ml/min Est GFR ( Amer) 59.1 Est GFR (Non-Af Amer) 51.0 BUN/Creatinine Ratio 19.6 (10-20) Glucose 143 H (70-99) mg/dl Calcium 9.6 (8.5-10.1) mg/dl Troponin I < 0.015 (0-0.045) ng/ml Lipase 142 (73-393) U/L Imaging Data Radiologist's Impression: Radiology results as stated below per my review and the radiologist's interpretation: SINGLE VIEW CHEST CLINICAL HISTORY: Atypical chest pain. FINDINGS: An AP, portable, upright chest radiograph is compared to study dated 12/26/2018. Correlation is made with chest CT dated 05/09/2017. The heart is top normal for projection noting atherosclerotic calcification of the thoracic aorta. The pulmonary vasculature is noncongested. There is left basilar consolidation and a small left pleural effusion. No pneumothorax is seen. The skeletal structures are osteopenic. The bony thorax is grossly intact. Degenerative change is noted in the thoracic spine. IMPRESSION: There is left basilar consolidation and a small left pleural effusion. The appearance is typical for pneumonia/aspiration pneumonitis. Clinical correlation will be required and radiographic follow-up to resolution is recommended. ACT 112: Negative or not required by law. Electronically signed by: Natanael Duenas M.D. 12/02/2019 7:11 AM ECG Data Attestation: I personally reviewed and interpreted this ECG as follows: Indication: + chest pain Rate (beats per minute): 136 Rhythm: + atrial fibrillation ECG ST segments: no ST depression and no ST elevation ECG Findings: + Peaked T waves and + Other (AR, QR, and QRS within normal limits) Blood Pressure Blood Pressure Findings: Low blood pressure Blood Pressure Disposition: further management by hospitalist LETICIA Narrative 0650: The patient was evaluated in room B11B. A complete history and physical exam was performed. The patient was placed on a cardiac monitored which showed A-fib with RVR. She stated that she didn't take her medications yesterday, but she took Metoprolol this morning. At time, there is no Cardizem boluses available in the ER due to a national shortage. The patient denied any cocaine usage, thus the patient was given a bolus of metoprolol 2.5 mg IV push. 0703: I reassessed the patient, and her blood pressure was 76/57. This was thought to be transient from the metoprolol IV push. The IV fluids were started. The Cardizem drip was held at this time. 0713: The patient's blood pressure was 96/56, and her heart rate was 150. The Cardizem drip was started. 0738: I spoke with Olga Lal, [facility] hospitalist, about the patient's case. She said the patient should be admitted to Dr. Warner, [facility] hospitalist, for further evaluation. Impression & Plan Atrial fibrillation with rapid ventricular response Discharge Plan Visit Data Chief Complaint: Cardiac Assessment Stated Complaint: chest pain ED Provider: Rick Savage Discharge Problem: Atrial fibrillation with rapid ventricular response Patient Disposition: Being Evaluated by Hospitalist Forms Stand Alone Forms: My [facility] Prescriptions Prescriptions: No Action metoprolol succinate 200 mg tablet extended release 24 hr 200 mg PO QAM Qty: 90 RF: 3 furosemide [Lasix] 20 mg tablet 20 mg PO DAILY PRN (Reason: edema) Qty: 30 RF: 2 lansoprazole 30 mg capsule,delayed release(DR/EC) See Rx Instructions .ROUTE .COMPLEX Qty: 30 RF: 11 sulfamethoxazole-trimethoprim [Bactrim DS] 800-160 mg tablet 1 tab PO BID 7 Days Qty: 14 RF: 0 Calcium 600 + D(3) 600 mg calcium- 200 unit Capsule 2 cap PO QAM RF: 0 Multivitamin 50 Plus Tablet 1 tab PO QAM RF: 0 lisinopril-hydrochlorothiazide 20-25 mg tablet 1 tab PO QAM RF: 0 Xarelto 20 mg tablet 20 mg PO QAM RF: 0 Referrals Referrals: Naima Lee DO [Primary Care Provider] - The scribe's documentation has been prepared under my direction and personally reviewed by me in its entirety. I confirm that the note above accurately reflects all work, treatment, procedures, and medical decision making performed by me.
[2019-12-02] MEDS ORDERED: METOPROLOL TARTRATE 50 MG TAB PO STA (11:19)
[2019-12-02] MEDS ORDERED: METOPROLOL TARTRATE 50 MG TAB ONE (11:22)
[2019-12-02] MEDS ORDERED: ONDANSETRON INJ 2 MG/ML 2 ML VIAL IV PRN (11:54)
[2019-12-02] MEDS: SULFAMETHOXAZOLE/TRIMETHOPRIM DS 800/160MG TAB PO SCH ×2 (13:02→20:12)
[2019-12-02] MEDS: RIVAROXABAN 20 MG TAB PO SCH (13:02)
[2019-12-02] MEDS: MULTIVITAMIN TAB PO SCH (13:03)
[2019-12-02] MEDS: CALCIUM 600MG + VIT D 400 IU TAB PO SCH (13:03)
[2019-12-02] MEDS: ACETAMINOPHEN 325 MG TAB PO PRN ×2 (18:34→23:08)
[2019-12-02 19:55] LABS: Influenza A virus by PCR Neg for Influ A (Neg); Influenza B virus by PCR Neg for Influ B (Neg)
--- NOTE | 2019-12-02 22:04 | Electrocardiogram Report ---
Test Reason : Blood Pressure : / mmHG Vent. Rate : 136 BPM Atrial Rate : 147 BPM P-R Int : 000 ms QRS Dur : 086 ms QT Int : 306 ms P-R-T Axes : 000 -03 092 degrees QTc Int : 460 ms Atrial fibrillation with rapid ventricular response Abnormal ECG When compared with ECG of 14-NOV-2017 06:25, Atrial fibrillation has replaced Sinus rhythm Vent. rate has increased BY 67 BPM Confirmed by Alexis Huitron ([id number]) on 12/02/2019 10:03:53 PM Referred By: REFERRED SELF Confirmed By:Alexis Huitron
[2019-12-03] MEDS: dilTIAZem HCL 125 MG in DEXTROSE 5% 100 ML IV SCH ×2 (07:28→08:35)
[2019-12-03] MEDS: PANTOprazole 40 MG TAB PO SCH (07:31)
[2019-12-03 08:09] LABS: Basophils # (auto) 0.01 K/uL (0-0.2); Basophils % (auto) 0.1 %; Eosinophils # (auto) 0.15 K/uL (0-0.5); Eosinophils % (auto) 2.1 %; Hematocrit (blood only) 40.8 % (37-47); Hemoglobin 13.1 g/dL (12.0-16.0); Immature Granulocytes # (auto) 0.02 K/uL (0.00-0.02); Immature Granulocytes % (auto) 0.3 %; Lymphocytes # (auto) 1.05 K/uL (1.2-3.4); Lymphocytes % (auto) 14.5 %; Mean Corpuscular Hemoglobin 29.7 pg (25-34); Mean Corpuscular Hgb Conc 32.1 g/dL (32-36); Mean Corpuscular Volume 92.5 fL (80-100); Mean Platelet Volume 10.7 fL (7.4-10.4); Monocytes # (auto) 0.38 K/uL (0.11-0.59); Monocytes % (auto) 5.2 %; Neutrophils # (auto) 5.65 K/uL (1.4-6.5); Neutrophils % (auto) 77.8 %; Platelet Count 202 K/uL (130-400); RDW Coefficient of Variation 14.5 % (11.5-14.5); RDW Standard Deviation 49.8 fL (36.4-46.3); Red Blood Count 4.41 M/uL (4.2-5.4); White Blood Count 7.26 K/uL (4.8-10.8)
[2019-12-03 08:32] LABS: Albumin Level 3.1 gm/dl (3.4-5.0); BUN Creatinine Ratio 18.9 (10-20); Calcium 9.4 mg/dl (8.5-10.1); Creatinine Clr Calc Pharmacy 63.2 ml/min; Est GFR (African American) 59.7; Est GFR (Non-African American) 51.5; Potassium 4.1 mmol/L (3.5-5.1)
[2019-12-03 08:40] LABS: Albumin Globulin Ratio 0.7 (0.9-2); Bilirubin,Total 0.6 mg/dl (0.2-1); Globulin 4.5 gm/dl (2.5-4.0); Total Protein 7.6 gm/dl (6.4-8.2); Troponin I 0.07 ng/ml (0-0.045)
[2019-12-03] MEDS ORDERED: METOPROLOL SUCC 50MG EXT REL TAB PO SCH (09:00)
[2019-12-03] MEDS: SULFAMETHOXAZOLE/TRIMETHOPRIM DS 800/160MG TAB PO SCH (09:16)
[2019-12-03] MEDS: MULTIVITAMIN TAB PO SCH (09:16)
[2019-12-03] MEDS: METOPROLOL SUCC 50MG EXT REL TAB PO SCH (09:16)
[2019-12-03] MEDS: SOTALOL HCL 80 MG TAB PO SCH ×2 (09:16→20:03)
[2019-12-03] MEDS: RIVAROXABAN 20 MG TAB PO SCH (09:17)
[2019-12-03] MEDS: CALCIUM 600MG + VIT D 400 IU TAB PO SCH (09:17)
--- NOTE | 2019-12-03 10:31 | Cardiology Consultation ---
Date of Consultation December 03, 2019 Assessment & Plan (1) Atrial fibrillation with RVR: The patient is relatively intolerant to her atrial dysrhythmia. We will initiate sotalol at 80 mg b.i.d.. Monitor on telemetry for an additional 48 hours. Amiodarone is being avoided due to her young age. Continue Xarelto. Would check a TSH and magnesium. (2) HOCM (hypertrophic obstructive cardiomyopathy): Echocardiogram performed last December noted normal systolic function and severe LVH most pronounced in the anteroseptum. Left ventricular outflow gradient was 10 mm Hg at rest, 49 mmHg with the Valsalva maneuver. Repeat study scheduled as an outpatient. (3) Elevated troponin: Suspect this is a supply demand mismatch realizing rapid atrial fibrillation and her severe LVH. (4) Chronic diastolic CHF (congestive heart failure): Appears to be compensated at this time. (5) HTN (hypertension): Adequate control on current medical regimen. History of Present Illness Attending Physician: Golden Dougherty MD History of Present Illness Mrs. Sevilla is a 64-year-old female admitted yesterday with atrial fibrillation and a rapid ventricular response. This consultation was ordered to assist her cardiac management. Of note, the patient is well known to me from the outpatient setting. The patient was in her usual state of 3 a.m. the day of presentation. She woke from sleep sustained palpitations. Approximately 4 a.m., the patient took her metoprolol succinate 200 mg. Her symptoms persisted, therefore, she presented to the emergency room for further care. Of note, the patient did not take her medications on December 01 prior to presentation. She was given intravenous metoprolol tartrate in the emergency room and eventually converted to sinus rhythm. Unfortunately, early this morning, the patient again developed rapid atrial fibrillation. An echocardiogram performed back in December noted normal left ventricular size and function, severe LVH most pronounced at the anteroseptum, a resting LVOT gradient of 10 mmHg, and a Valsalva LVOT obstruction of 49 mmHg. Results discussed in detail. We have also discussed the need for screening of all first-degree relatives. The patient carries a history of chronic diastolic CHF. She uses Lasix on a p.r.n. basis. She does not follow daily weights. Currently, the patient is resting comfortably in bed but does note palpitations. Past medical and surgical history 1. Hypertrophic obstructive cardiomyopathy 2. Paroxysmal atrial fibrillation. 3. Hypertension 4. Hypercholesterolemia 5. Chronic diastolic CHF 6. GERD 7. Tracheal esophageal fistula, congenital 8. Schatzki's ring 9. DJD 10. Morbid obesity 11. Obstructive sleep apnea 12. Vitamin-D deficiency Social history and lives with her Has 6 children 27 through 47 years of age No tobacco or alcohol Family history Mother at 69 from complications of diabetes Father at 72 from a stroke Most siblings have diabetes Review of systems A 10 point review of systems was negative except for that described above. Allergies Allergy/AdvReac Type Severity Reaction Status Date / Time doxycycline Allergy Mild Tingling Verified 12/02/19 07:39 sensation in mouth. Home Medications Home Medications Medication Instructions Recorded Confirmed Type Calcium 600 + D(3) 2 cap PO QAM 10/20/18 12/02/19 History metoprolol succinate 200 mg 200 mg PO QAM #90 tab 06/20/19 12/02/19 Rx tablet,extended release 24 hr furosemide 20 mg tablet 20 mg PO DAILY PRN #30 tab 09/20/19 12/02/19 Rx lansoprazole 30 mg capsule,delayed See Rx Instructions .ROUTE 10/25/19 12/02/19 Rx release .COMPLEX #30 capsule sulfamethoxazole 800 1 tab PO BID 7 Days #14 tab 11/27/19 12/02/19 Rx mg-trimethoprim 160 mg tablet Xarelto 20 mg PO QAM 12/02/19 12/02/19 History lisinopril-hydrochlorothiazide 1 tab PO QAM 12/02/19 12/02/19 History aelmiwcesqeh-ptycyyus-zzrcte 1 tab PO QAM 12/02/19 12/02/19 History [Multivitamin 50 Plus] Patient History Medical History Aortic valve sclerosis Arthritis Atrial fibrillation on Xarelto, follows with Dr. Solis Dyslipidemia GERD (gastroesophageal reflux disease) HOCM (hypertrophic obstructive cardiomyopathy) Hypertension Lymphedema Morbid obesity On anticoagulant therapy xarelto ALEM (obstructive sleep apnea) Osteoarthritis of knee PLMD (periodic limb movement disorder) Schatzki's ring Tracheoesophageal fistula, esophageal atresia and stenosis, congenital Vitamin D deficiency Surgical History History of carpal tunnel release left History of colonoscopy History of esophagogastroduodenoscopy (EGD) History of tonsillectomy History of tooth extraction Family History Mother Myocardial infarction Diabetes Coronary heart disease Brother Diabetes Sister Diabetes Myocardial infarction Sister Diabetes Pancreatic cancer Sister Diabetes Kidney disease Brother No problems noted. Social History Preferred Language: Mongolian Communication Ability: Effective Visual Impairment: No Limitations Hearing Ability: Normal Submarine Cable Equipment Technician Required: No Beliefs That Will Affect Care: Rastafarian Rastafarian Beliefs: MANDAEN marital status: Current Living Situation: Spouse current occupational status: other Other Information That Helps Us Care for You: No Feels Safe at Home: Yes Safety Concerns: Feels Safe At This Time Smoking Status: Never smoker Second Hand Exposure: Yes (parents smoked) ; Hx Alcohol Use: No Hx Substance Use: No caffeine: No Dental Care, Regularly: Yes Physical Activity Frequency: Does not Exercise Seatbelt Use: always Sunscreen Use: Yes Physical Exam Physical Exam: In general this is an obese white female in no acute distress. HEENT exam is negative. Neck is supple with full carotid upstrokes. There are no carotid bruits. Jugular venous pressure is flat at 90. There is no thyromegaly. Cardiovascular exam reveals an irregularly irregular rhythm with distant heart sounds. No S3 or murmurs are noted. Lungs are clear without rales, rhonchi, or wheezes. Abdomen is soft and nontender without bruits. Extremities reveal intact radial artery and posterior tibial pulses bilaterally. There is trace pedal edema. Results & Data Vital Signs (Past 12 Hours) Vital Signs Temp Pulse Resp BP Pulse Ox 12/03/19 09:19 109/86 12/03/19 07:32 121/89 12/03/19 07:10 127 H 115/88 12/03/19 06:59 36.9 C 125 H 16 145/73 H 94 12/03/19 05:26 128 H 116/46 L 12/03/19 03:54 37 C 81 16 122/58 L 96 12/03/19 01:19 37.1 C 12/03/19 00:15 38.5 C H 106 H 18 114/71 92 12/02/19 23:00 39.3 C H 105 H 16 102/61 90 Laboratory Results GROUP DIRECTOR EXPERIENCE notes hemoglobin 13.1, hematocrit 40.8, white count 7.26, and platelets of 191351. Electrolytes noted a sodium of 136, potassium 4.4, chloride 101, bicarb 27, BUN 23 creatinine 1.15, glucose of 143. Initial troponin was less than 0.015 fallow up values of 0.199, 0.225, and 0.07. Diagnostic Findings EKG notes atrial fibrillation with a rapid ventricular response. This is also noted on telemetry. Chest x-ray shows no acute disease. PG Care Time/CCT Total # of Minutes Spent Total Time Spent with Patient: Total time spent is greater than 50% in coordination of care (as documented) at patient's floor/unit and/or counseling patient: Coding Level of Care Code 40953 Inpt Consult Level 4 Diagnoses Atrial fibrillation with RVR I48.91 HOCM (hypertrophic obstructive cardiomyopathy) I42.1 Elevated troponin R79.89 Chronic diastolic CHF (congestive heart failure) I50.32 HTN (hypertension) I10
[2019-12-03] MEDS: ACETAMINOPHEN 325 MG TAB PO PRN (11:19)
--- NOTE | 2019-12-03 11:38 | Hospitalist Progress Note ---
Date of Service December 03, 2019 Assessment & Plan (1) Pneumonia: CXR on admission showing a RLL consolidation. Has had fevers while inpatient. - Start Unasyn for community-acquired pneumonia vs. aspiration PNA. Will also do doxycyline for atypicals and to avoid QTc prolonging medications. - Follow up blood cultures drawn on 12/02 - MRSA swab (2) Atrial fibrillation with RVR: Paroxsymal afib with last prolonged episode in 2017 per patient. Has gone in and out of afib in the hospital with HR generally elevated up to 150s when in afib. - Discussed with Dr. Woodard today - Started sotalol in the hospital as a rhythm- control strategy given her intolerance of afib. - Monitor QTc - Continue metop XL 200 mg QAM - Continue Xarelto for anticoagulation - Taper diltiazem gtt as discussed with her RN (3) HTN (hypertension): BP currently 120/70. - Holding lisinopril/HCTZ - Continue metop XL 200 mg QAM (4) HOCM (hypertrophic obstructive cardiomyopathy): Last echo completed in Dec 2018 showed normal left ventricular size and function, severe LVH most pronounced at the anterior septum, resting LVOT gradient of 10 mmHg, and a Valsalva LVOT obstruction of 49 mmHg. - Repeat echo inpatient. (5) Dyslipidemia: - Continue statin therapy (6) Morbid obesity: BMI of 57.7. - Diet and exercise to be encouraged upon discharge (7) Schatzki's ring: Follows with GI as an outpatient. No complaints of indigestion. - Continue lansoprazole (8) ALEM (obstructive sleep apnea): Pt does not wear CPAP HS. Could be contributing to her afib. - Outpatient follow up (9) Leg wound, right: Right posterior calf wound present since having cellulitis which started ~2 weeks ago. - Continue Bactrim for now as per home meds. End date would be 12/06/2019 from original script. - Wound consulted, pt has outpt wound clinic referral scheduled for this week. (10) DVT prophylaxis: Xarelto for afib Subjective Feeling somewhat short of breath with her rapid heart rate. Otherwise, feeling well. Feels the palpitations somewhat. Reports no fevers/chills, chest pain, abdominal pain, nausea, or vomiting. Physical Exam Constitutional: WD/WN, vitals as above Eyes: EOM intact bilaterally; no conjunctival abnormality ENMT: external ear and nose normal, oropharynx normal Neck: trachea midline, no thyromegaly normal visual inspection Respiratory: normal respiratory effort, lungs clear to auscultation no respiratory distress Cardiovascular: Rate/Rhythm: + tachycardic and + irregularly irregular Heart Sounds: normal S1 and normal S2 Gastrointestinal (Abdomen): Inspection/Auscultation: abdomen normal to inspection; abdomen not distended Musculoskeletal: no cyanosis or clubbing, extremities motor strength 5/5 Skin: no rashes, warm and dry Neurologic: moves all extremities and awake Psychiatric: Orientation: alert, oriented to person and cooperative Results & Data ([facility]) Vital Signs (Past 12 Hours) Vital Signs Temp Pulse Resp BP BP Pulse Ox 12/03/19 11:10 39.3 C H 81 20 119/69 90 12/03/19 10:30 117/73 12/03/19 09:19 109/86 12/03/19 07:32 121/89 12/03/19 07:10 127 H 115/88 12/03/19 06:59 36.9 C 125 H 16 145/73 H 94 12/03/19 05:26 128 H 116/46 L 12/03/19 03:54 37 C 81 16 122/58 L 96 12/03/19 01:19 37.1 C 12/03/19 00:15 38.5 C H 106 H 18 114/71 92 PG Care Time/CCT Total # of Minutes Spent Total Time Spent with Patient: Total time spent is greater than 50% in coordination of care (as documented) at patient's floor/unit and/or counseling patient: Coding Level of Care Code 08416 Subseq Hosp Care Lvl 3 Diagnoses Pneumonia J18.9 Atrial fibrillation with RVR I48.91 HTN (hypertension) I10 HOCM (hypertrophic obstructive cardiomyopathy) I42.1 Dyslipidemia E78.5 Morbid obesity E66.01 Schatzki's ring K22.2 ALEM (obstructive sleep apnea) G47.33 Leg wound, right S81.801A DVT prophylaxis Z29.9
[2019-12-03] MEDS ORDERED: Nursing to Pharmacy Communication ONE (13:21)
[2019-12-03] MEDS: DOXYCYCLINE HYCLATE 100 MG in DEXTROSE 5% 100 ML IV SCH (13:44)
[2019-12-03] MEDS: AMPICILLIN/SULBACTAM SOD 3,000 MG in 0.9 % SODIUM CHLORIDE 100 ML IV SCH ×2 (13:44→20:02)
--- NOTE | 2019-12-03 15:27 | XCELERA ---
[id number] \\[email or web address]\[id number]_[email or web address]\[id number]
[2019-12-04] MEDS: AMPICILLIN/SULBACTAM SOD 3,000 MG in 0.9 % SODIUM CHLORIDE 100 ML IV SCH ×4 (00:50→20:05)
[2019-12-04] MEDS: DOXYCYCLINE HYCLATE 100 MG in DEXTROSE 5% 100 ML IV SCH ×2 (01:24→12:18)
[2019-12-04] MEDS ORDERED: METOPROLOL TARTRATE 1 MG/ML VIAL IV STA (05:36)
[2019-12-04 05:37] LABS: Hematocrit (blood only) 34.3 % (37-47); Hemoglobin 11.1 g/dL (12.0-16.0); Mean Corpuscular Hemoglobin 29.4 pg (25-34); Mean Corpuscular Hgb Conc 32.4 g/dL (32-36); Mean Corpuscular Volume 90.7 fL (80-100); Mean Platelet Volume 10.2 fL (7.4-10.4); Platelet Count 190 K/uL (130-400); RDW Coefficient of Variation 14.5 % (11.5-14.5); RDW Standard Deviation 48.3 fL (36.4-46.3); Red Blood Count 3.78 M/uL (4.2-5.4); White Blood Count 6.04 K/uL (4.8-10.8)
[2019-12-04 06:02] LABS: Albumin Level 2.7 gm/dl (3.4-5.0); BUN Creatinine Ratio 20.3 (10-20); Calcium 9.2 mg/dl (8.5-10.1); Creatinine Clr Calc Pharmacy 67.5 ml/min; Est GFR (African American) 64.4; Est GFR (Non-African American) 55.6; Magnesium 2.1 mg/dl (1.8-2.4)
[2019-12-04 06:05] LABS: Albumin Globulin Ratio 0.7 (0.9-2); Bilirubin,Total 0.5 mg/dl (0.2-1); Globulin 4.1 gm/dl (2.5-4.0); Total Protein 6.8 gm/dl (6.4-8.2)
--- NOTE | 2019-12-04 07:14 | Hospitalist Progress Note ---
Date of Service December 04, 2019 Assessment & Plan (1) Pneumonia: CXR on admission showing a RLL consolidation. Has had fevers while inpatient. - Start Unasyn for community-acquired pneumonia vs. aspiration PNA. Will also do doxycyline for atypicals and to avoid QTc prolonging medications. - Follow up blood cultures drawn on 12/02 - MRSA swab (2) Atrial fibrillation with RVR: Paroxsymal afib with last prolonged episode in 2017 per patient. Has gone in and out of afib in the hospital with HR generally elevated up to 150s when in afib. - Discussed with Dr. Woodard on 12/03 - Started sotalol in the hospital as a rhythm-control strategy given her intolerance of afib. - Monitor QTc -> Only 420 the AM of 12/04 - Continue metop XL 200 mg QAM - Continue Xarelto for anticoagulation - Taper diltiazem gtt as able (3) HTN (hypertension): BP currently 100/70. - Holding lisinopril/HCTZ - Continue metop XL 200 mg QAM (4) HOCM (hypertrophic obstructive cardiomyopathy): Last echo completed in Dec 2018 showed normal left ventricular size and function, severe LVH most pronounced at the anterior septum, resting LVOT gradient of 10 mmHg, and a Valsalva LVOT obstruction of 49 mmHg. - Repeat echo inpatient - Done on 12/03, appears stable from prior with hypertrophic cardiomyopathy. (5) Dyslipidemia: - Continue statin therapy (6) Morbid obesity: BMI of 57.7. - Diet and exercise to be encouraged upon discharge (7) Schatzki's ring: Follows with GI as an outpatient. No complaints of indigestion. - Continue lansoprazole (8) ALEM (obstructive sleep apnea): Pt does not wear CPAP HS. Could be contributing to her afib. - Outpatient follow up (9) Leg wound, right: Right posterior calf wound present since having cellulitis which started ~2 weeks ago. - Continue Bactrim for now as per home meds. End date would be 12/06/2019 from original script. - Wound consulted, pt has outpt wound clinic referral scheduled for this week. (10) DVT prophylaxis: Xarelto for afib Subjective Again uncomfortable with her afib going. Reports no fevers/chills, chest pain, shortness of breath, abdominal pain, nausea, or vomiting. Physical Exam Constitutional: WD/WN, vitals as above Eyes: EOM intact bilaterally; no conjunctival abnormality ENMT: external ear and nose normal, oropharynx normal Neck: trachea midline, no thyromegaly normal visual inspection Respiratory: normal respiratory effort, lungs clear to auscultation no respiratory distress Cardiovascular: Rate/Rhythm: + tachycardic and + irregularly irregular Heart Sounds: normal S1 and normal S2 Gastrointestinal (Abdomen): Inspection/Auscultation: abdomen normal to inspection; abdomen not distended Musculoskeletal: no cyanosis or clubbing, extremities motor strength 5/5 Skin: no rashes, warm and dry Neurologic: moves all extremities and awake Psychiatric: Orientation: alert, oriented to person and cooperative Results & Data ([facility]) Vital Signs (Past 12 Hours) Vital Signs Temp Pulse Pulse Pulse Resp BP BP 12/04/19 05:43 133 H 12/04/19 05:31 132 H 102/70 12/04/19 03:39 37.2 C 76 16 109/71 12/03/19 23:13 37.1 C 72 16 125/71 12/03/19 22:20 71 Pulse Ox 12/04/19 05:43 12/04/19 05:31 12/04/19 03:39 93 12/03/19 23:13 95 12/03/19 22:20 PG Care Time/CCT Total # of Minutes Spent Total Time Spent with Patient: Total time spent is greater than 50% in coordin ation of care (as documented) at patient's floor/unit and/or counseling patient: Coding Level of Care Code 88235 Subseq Hosp Care Lvl 3 Diagnoses Pneumonia J18.9 Atrial fibrillation with RVR I48.91 HTN (hypertension) I10 HOCM (hypertrophic obstructive cardiomyopathy) I42.1 Dyslipidemia E78.5 Morbid obesity E66.01 Schatzki's ring K22.2 ALEM (obstructive sleep apnea) G47.33 Leg wound, right S81.801A DVT prophylaxis Z29.9
[2019-12-04] MEDS: RIVAROXABAN 20 MG TAB PO SCH (07:39)
[2019-12-04] MEDS: PANTOprazole 40 MG TAB PO SCH (07:40)
[2019-12-04] MEDS: CALCIUM 600MG + VIT D 400 IU TAB PO SCH (07:40)
[2019-12-04] MEDS: MULTIVITAMIN TAB PO SCH (07:40)
[2019-12-04] MEDS: SOTALOL HCL 80 MG TAB PO SCH ×2 (08:15→20:06)
[2019-12-04] MEDS: METOPROLOL SUCC 50MG EXT REL TAB PO SCH (08:15)
--- NOTE | 2019-12-04 09:46 | Cardiology Progress Note ---
Date of Service December 04, 2019 Assessment & Plan (1) Atrial fibrillation with RVR: The patient did convert to sinus yesterday, however, has reverted to atrial fibrillation this morning. Would continue sotalol, metoprolol, and Xarelto. Magnesium is normal. Would check TSH level. (2) HOCM (hypertrophic obstructive cardiomyopathy): Echocardiogram notes normal systolic function and severe LVH most pronounced in the anteroseptum. Left ventricular outflow gradient was not able to be estimated current study. (3) Elevated troponin: Suspect this is a supply demand mismatch realizing atrial fibrillation with a rapid ventricular response and her severe LVH. (4) Chronic diastolic CHF (congestive heart failure): Compensated at this time. (5) HTN (hypertension): Adequate control on current medical regimen. Subjective The patient is resting comfortably. She does note palpitations atrial fibrillation. Physical Exam Physical Exam: In general this is an obese white female in no acute distress. HEENT exam is negative. Neck is supple with full carotid upstrokes. There are no carotid bruits. Jugular venous pressure is flat at 90. There is no t hyromegaly. Cardiovascular exam reveals an irregularly irregular rhythm with distant heart sounds. No S3 or murmurs are noted. Lungs are clear without rales, rhonchi, or wheezes. Abdomen is soft and nontender without bruits. Extremities reveal intact radial artery and posterior tibial pulses bilaterally. There is trace pedal edema. Results & Data Vital Signs (Past 12 Hours) Vital Signs Temp Pulse Pulse Pulse Resp BP BP 12/04/19 07:17 36.8 C 122 H 20 113/78 12/04/19 05:43 133 H 12/04/19 05:31 132 H 102/70 12/04/19 03:39 37.2 C 76 16 109/71 12/03/19 23:13 37.1 C 72 16 125/71 12/03/19 22:20 71 Pulse Ox 12/04/19 07:17 92 12/04/19 05:43 12/04/19 05:31 12/04/19 03:39 93 12/03/19 23:13 95 12/03/19 22:20 Diagnostic Findings public weigher currently notes atrial fibrillation with rapid ventricular response. She did convert to sinus rhythm yesterday afternoon. PG Care Time/CCT Total # of Minutes Spent Total Time Spent with Patient: Total time spent is greater than 50% in coordination of care (as documented) at patient's floor/unit and/or counseling patient: Coding Level of Care Code 52542 Subseq Hosp Care Lvl 3 Diagnoses Atrial fibrillation with RVR I48.91 HOCM (hypertrophic obstructive cardiomyopathy) I42.1 Elevated troponin R79.89 Chronic diastolic CHF (congestive heart failure) I50.32 HTN (hypertension) I10
[2019-12-04] MEDS: dilTIAZem HCL 125 MG in DEXTROSE 5% 100 ML IV SCH ×2 (12:12→19:26)
--- NOTE | 2019-12-04 12:23 | Electrocardiogram Report ---
Test Reason : Blood Pressure : / mmHG Vent. Rate : 130 BPM Atrial Rate : 147 BPM P-R Int : 000 ms QRS Dur : 090 ms QT Int : 286 ms P-R-T Axes : 000 -02 124 degrees QTc Int : 420 ms Atrial fibrillation with rapid ventricular response Nonspecific ST and T wave abnormality Abnormal ECG When compared with ECG of 02-DEC-2019 06:37, No significant change was found Confirmed by Albaro Woodard ([id number]) on 12/04/2019 12:22:51 PM Referred By: REFERRED SELF Confirmed By:Albaro Woodard
[2019-12-04] MEDS ORDERED: SOTALOL HCL 80 MG TAB PO ONE (15:06)
[2019-12-04] MEDS ORDERED: FUROSEMIDE 20 MG in SYRINGE 0 ML IV ONE ×2 (17:00→20:00)
[2019-12-04] MEDS ORDERED: FUROSEMIDE 40 MG/4 ML VIAL IV ONE (17:19)
--- NOTE | 2019-12-04 17:26 | XRay Report ---
XR chest 1V portable HISTORY: Shortness of breath; hypoxemia COMPARISON: Chest 12/02/2019. FINDINGS: Interval progression of the cardiomegaly, small bilateral pleural effusions, and right grea ter than left perihilar hazy airspace opacities with interstitial thickening. This is consistent with moderate asymmetric pulmonary edema. No pneumothorax. IMPRESSION: Interval progression of the moderate asymmetric pulmonary edema and bilateral pleural effusions. ACT 112: Negative or not required by law. Electronically signed by: Sung Smyth M.D. 12/04/2019 5:25 PM
[2019-12-05] MEDS: DOXYCYCLINE HYCLATE 100 MG in DEXTROSE 5% 100 ML IV SCH ×2 (00:58→13:24)
[2019-12-05] MEDS: AMPICILLIN/SULBACTAM SOD 3,000 MG in 0.9 % SODIUM CHLORIDE 100 ML IV SCH ×4 (00:59→19:25)
[2019-12-05 05:57] LABS: Hematocrit (blood only) 33.6 % (37-47); Mean Corpuscular Hemoglobin 29.9 pg (25-34); Mean Corpuscular Hgb Conc 32.7 g/dL (32-36); Mean Corpuscular Volume 91.3 fL (80-100); Mean Platelet Volume 10.2 fL (7.4-10.4); Platelet Count 194 K/uL (130-400); RDW Coefficient of Variation 14.7 % (11.5-14.5); RDW Standard Deviation 49.6 fL (36.4-46.3); Red Blood Count 3.68 M/uL (4.2-5.4); White Blood Count 5.76 K/uL (4.8-10.8)
[2019-12-05 06:35] LABS: Albumin Level 2.6 gm/dl (3.4-5.0); Calcium 9.4 mg/dl (8.5-10.1); Creatinine Clr Calc Pharmacy 64.3 ml/min; Est GFR (Non-African American) 52.6; Potassium 3.6 mmol/L (3.5-5.1)
[2019-12-05 06:38] LABS: Albumin Globulin Ratio 0.6 (0.9-2); Bilirubin,Total 0.6 mg/dl (0.2-1); Globulin 4.5 gm/dl (2.5-4.0); Total Protein 7.1 gm/dl (6.4-8.2)
[2019-12-05] MEDS: dilTIAZem HCL 125 MG in DEXTROSE 5% 100 ML IV SCH ×2 (06:43→13:25)
[2019-12-05] MEDS ORDERED: FUROSEMIDE 20 MG in SYRINGE 0 ML IV ONE ×2 (07:45→16:45)
[2019-12-05] MEDS: CALCIUM 600MG + VIT D 400 IU TAB PO SCH (09:17)
[2019-12-05] MEDS: MULTIVITAMIN TAB PO SCH (09:17)
[2019-12-05] MEDS: RIVAROXABAN 20 MG TAB PO SCH (09:17)
[2019-12-05] MEDS: PANTOprazole 40 MG TAB PO SCH (09:17)
[2019-12-05] MEDS: METOPROLOL SUCC 50MG EXT REL TAB PO SCH (09:17)
[2019-12-05] MEDS: SOTALOL HCL 80 MG TAB PO SCH ×3 (10:15→19:56)
--- NOTE | 2019-12-05 10:39 | Cardiology Progress Note ---
Date of Service December 05, 2019 Assessment & Plan (1) Atrial fibrillation with RVR: The patient did convert to sinus for bout 2 hours last evening. She has reverted back to atrial fibrillation. Would increase sotalol to 160 mg b.i.d.. QTc last evening while in sinus was 462 msec. Continue metoprolol and Xarelto. Would check TSH level. (2) HOCM (hypertrophic obstructive cardiomyopathy): Echocardiogram notes normal systolic function and severe LVH, most pronounced in the anteroseptum. Left ventricular outflow gradient was not able to be estimated. (3) Elevated troponin: Supply demand mismatch from atrial fibrillation with a rapid ventricular response and her severe LVH. (4) Chronic diastolic CHF (congestive heart failure): Compensated at this time. Has received IV lasix. (5) HTN (hypertension): Adequate control on current medical regimen. Subjective The patient is resting comfortably in the bedside chair without complaints of chest pain or dyspnea. She does note some mild palpitations. Brothers the bedside. Discussed the need for screening echocardiograms in all of the patient's first-degree relatives. Physical Exam Physical Exam: In general this is an obese white female in no acute distress. HEENT exam is negative. Neck is supple with full carotid upstrokes. There are no carotid bruits. Jugular venous pressure is flat at 90. There is no thyromegaly. Cardiovascular exam reveals an irregularly irregular rhythm with distant heart sounds. No S3 or murmurs are noted. Lungs are clear without rales, rhonchi, or wheezes. Abdomen is soft and nontender without bruits. Extremities reveal intact radial artery and posterior tibial pulses bilaterally. There is trace pedal edema. Results & Data Vital Signs (Past 12 Hours) Vital Signs Temp Pulse Pulse Resp BP BP Pulse Ox 12/05/19 07:58 36.7 C 78 20 114/75 93 12/05/19 04:09 36.4 C L 86 20 99/68 L 12/05/19 00:40 36.9 C 97 H 18 99/48 L 93 PG Care Time/CCT Total # of Minutes Spent Total Time Spent with Patient: Total time spent is greater than 50% in coordination of care (as documented) at patient's floor/unit and/or counseling patient: Coding Level of Care Code 61472 Subseq Hosp Care Lvl 3 Diagnoses Atrial fibrillation with RVR I48.91 HOCM (hypertrophic obstructive cardiomyopathy) I42.1 Elevated troponin R79.89 Chronic diastolic CHF (congestive heart failure) I50.32 HTN (hypertension) I10
--- NOTE | 2019-12-05 11:46 | Cardioversion ---
Date of Service December 05, 2019 PG Electrical Cardioversion Rp Electrical Cardioversion Report Date of procedure: December 05, 2019 Procedure: NICHOLAS directed electrical cardioversion Protocol: After informed consent and a "time out" performed, the patient was sedated smoothly by Dr. Ruiz. The patient was monitored continuously by telemetry, end tidal CO2, pulse oximetry, and sphygmomanometry. A transesophageal echocardiogram revealed no evidence of left atrial or left appendage thrombus. The NICHOLAS probe was removed without difficuly. The patient was then given 100J of synchronized biphasic energy via hands off paddles. The patient successfully converted to sinus rhythm. Following the procedure, the patient was hemodynamically stable and without complaints. There were no complications. Conclusions: 1. No intra-atrial thrombus by NICHOLAS. 2. Successful cardioversion to sinus rhythm. 3. No complications. Coding Level of Care Code Cardioversion, elective Additional Codes Electrical Cardioversion Report ([id number])
--- NOTE | 2019-12-05 12:21 | Hospitalist Progress Note ---
Date of Service December 05, 2019 Assessment & Plan (1) Acute diastolic CHF (congestive heart failure): On 12/04, she had increasing O2 demands and some mild respiratory distress. CXR showed increased pulmonary edema. In diastolic heart failure due to her afib with RVR combined with her hypertrophic cardiomyopathy. BNP elevated to 5000. - Started Lasix 20 mg IV BID with good urine output - Continue Lasix; monitor I&Os, weights (2) Atrial fibrillation with RVR: Paroxsymal afib with last prolonged episode in 2017 per patient. Has gone in and out of afib in the hospital with HR generally elevated up to 150s when in afib. - Discussed with Dr. Woodard on 12/03 - Started sotalol in the hospital as a rhythm-control strategy given her intolerance of afib. - Monitor QTc -> Only 420 the AM of 12/04; up to 500 on 12/05, but was normal when she was in sinus - Increase sotalol to 160mg PO BID on 12/05 - Continue metop XL 200 mg QAM - Continue Xarelto for anticoagulation - Taper diltiazem gtt as able (3) Pneumonia: CXR on admission showing a RLL consolidation. Has had fevers while inpatient. - On 12/03, started Unasyn for community-acquired pneumonia vs. aspiration PNA. Doxycyline for atypicals and to avoid QTc prolonging medications. - Follow up blood cultures drawn on 12/02 - MRSA swab was negative on 12/03. (4) HTN (hypertension): BP currently 100/65. - Holding lisinopril/HCTZ - Continue metop XL 200 mg QAM (5) HOCM (hypertrophic obstructive cardiomyopathy): Last echo completed in Dec 2018 showed normal left ventricular size and function, severe LVH most pronounced at the anterior septum, resting LVOT gradient of 10 mmHg, and a Valsalva LVOT obstruction of 49 mmHg. - Repeat echo inpatient - Done on 12/03, appears stable from prior with hypertrophic cardiomyopathy. (6) Dyslipidemia: - Continue statin therapy (7) Morbid obesity: BMI of 57.7. - Diet and exercise to be encouraged upon discharge (8) Schatzki's ring: Follows with GI as an outpatient. No complaints of indigestion. - Continue lansoprazole (9) ALEM (obstructive sleep apnea): Was tested and encouraged to use CPAP. Never got a machine at home. She does not feel she would benefit and was fairly reluctant to get one. I did encourage it. - Outpatient follow up (10) Leg wound, right: Right posterior calf wound present since having cellulitis which started ~2 weeks ago. - Continue Bactrim for now as per home meds. End date would be 12/06/2019 from original script. - Wound consulted, pt has outpt wound clinic referral scheduled for this week. (11) DVT prophylaxis: Xarelto for afib Subjective Breathing better this morning than last night. Feeling better. Reports no fevers/chills, chest pain, shortness of breath, abdominal pain, nausea, or vomiting. Physical Exam Constitutional: WD/WN, vitals as above Eyes: EOM intact bilaterally; no conjunctival abnormality ENMT: external ear and nose normal, oropharynx normal Neck: trachea midline, no thyromegaly normal visual inspection Respiratory: normal respiratory effort, lungs clear to auscultation no respiratory distress Cardiovascular: Rate/Rhythm: + tachycardic and + irregularly irregular Heart Sounds: normal S1 and normal S2 Gastrointestinal (Abdomen): Inspection/Auscultation: abdomen normal to inspection; abdomen not distended Musculoskeletal: no cyanosis or clubbing, extremities motor strength 5/5 Skin: no rashes, warm and dry Neurologic: moves all extremities and awake Psychiatric: Orientation: alert, oriented to person and cooperative Results & Data ([facility]) Vital Signs (Past 12 Hours) Vital Signs Temp Pulse Pulse Resp BP BP Pulse Ox 12/05/19 11:37 36.4 C L 85 20 101/66 90 12/05/19 07:58 36.7 C 78 20 114/75 93 12/05/19 04:09 36.4 C L 86 20 99/68 L 12/05/19 00:40 36.9 C 97 H 18 99/48 L 93 PG Care Time/CCT Total # of Minutes Spent Total Time Spent with Patient: Total time spent is greater than 50% in coordination of care (as documented) at patient's floor/unit and/or counseling patient: Coding Level of Care Code 62759 Subseq Hosp Care Lvl 3 Diagnoses Acute diastolic CHF (congestive heart failure) I50.31 Atrial fibrillation with RVR I48.91 Pneumonia J18.9 HTN (hypertension) I10 HOCM (hypertrophic obstructive cardiomyopathy) I42.1 Dyslipidemia E78.5 Morbid obesity E66.01 Schatzki's ring K22.2 ALEM (obstructive sleep apnea) G47.33 Leg wound, right S81.801A DVT prophylaxis Z29.9
--- NOTE | 2019-12-05 14:25 | Electrocardiogram Report ---
Test Reason : Blood Pressure : / mmHG Vent. Rate : 094 BPM Atrial Rate : 000 BPM P-R Int : 000 ms QRS Dur : 094 ms QT Int : 400 ms P-R-T Axes : 000 009 080 degrees QTc Int : 500 ms Atrial fibrillation Cannot rule out Anterior infarct , age undetermined Abnormal ECG When compared with ECG of 04-DEC-2019 05:11, ST no longer depressed in Anterolateral leads Nonspecific T wave abnormality has replaced inverted T waves in Lateral leads Confirmed by Albaro Woodard ([id number]) on 12/05/2019 2:25:16 PM Referred By: REFERRED SELF Confirmed By:Albaro Woodard
[2019-12-05] MEDS: POTASSIUM CHLORIDE 10 MEQ TABCR PO SCH ×2 (16:38→19:25)
[2019-12-06] MEDS: DOXYCYCLINE HYCLATE 100 MG in DEXTROSE 5% 100 ML IV SCH (01:06)
[2019-12-06] MEDS: AMPICILLIN/SULBACTAM SOD 3,000 MG in 0.9 % SODIUM CHLORIDE 100 ML IV SCH ×2 (01:06→08:07)
[2019-12-06 06:13] LABS: Hematocrit (blood only) 33.9 % (37-47); Hemoglobin 10.8 g/dL (12.0-16.0); Mean Corpuscular Hemoglobin 29.3 pg (25-34); Mean Corpuscular Hgb Conc 31.9 g/dL (32-36); Mean Corpuscular Volume 92.1 fL (80-100); Mean Platelet Volume 10.5 fL (7.4-10.4); Platelet Count 201 K/uL (130-400); RDW Coefficient of Variation 14.6 % (11.5-14.5); RDW Standard Deviation 49.7 fL (36.4-46.3); Red Blood Count 3.68 M/uL (4.2-5.4); White Blood Count 4.99 K/uL (4.8-10.8)
[2019-12-06 06:47] LABS: Calcium 9.7 mg/dl (8.5-10.1); Est GFR (African American) 83.9; Est GFR (Non-African American) 72.4; Magnesium 2.1 mg/dl (1.8-2.4)
[2019-12-06 06:48] LABS: Phosphorus 3.4 mg/dl (2.5-4.9)
[2019-12-06] MEDS: CALCIUM 600MG + VIT D 400 IU TAB PO SCH (08:02)
[2019-12-06] MEDS: SOTALOL HCL 80 MG TAB PO SCH (08:02)
[2019-12-06] MEDS: MULTIVITAMIN TAB PO SCH (08:03)
[2019-12-06] MEDS: PANTOprazole 40 MG TAB PO SCH (08:03)
[2019-12-06] MEDS: RIVAROXABAN 20 MG TAB PO SCH (08:03)
[2019-12-06] MEDS ORDERED: METOPROLOL SUCC 50MG EXT REL TAB PO SCH (09:00)
--- NOTE | 2019-12-06 10:30 | Cardiology Progress Note ---
Date of Service December 06, 2019 Assessment & Plan (1) Atrial fibrillation with RVR: The patient remains in sinus rhythm on sotalol 160 mg b.i.d.. QTc acceptable at 486 msec. Would reduce or discontinue metoprolol. Continue Xarelto. Stable for hospital discharge Follow up with me on December 12 at 09:30. (2) HOCM (hypertrophic obstructive cardiomyopathy): Echocardiogram findings consistent with hypertrophic cardiomyopathy. Left ventricular outflow gradient was not able to be estimated. (3) Elevated troponin: Supply demand mismatch from rapid atrial fibrillation and her severe LVH. (4) Chronic diastolic CHF (congestive heart failure): Compensated at this time. She will use Lasix on a p.r.n. basis. (5) HTN (hypertension): Adequate control on current medical regimen. Subjective The patient is resting comfortably bedside chair without complaints chest pain, dyspnea, or palpitations. Physical Exam Physical Exam: In general this is an obese white female in no acute distress. HEENT exam is negative. Neck is supple with full carotid upstrokes. There are no carotid bruits. Jugular venous pressure is flat at 90. There is no thyromegaly. Cardiovascular exam reveals a regular rhythm with distant heart sounds. No S3 or murmurs are noted. Lungs are clear without rales, rhonchi, or wheezes. Abdomen is soft and nontender without bruits. Extremities reveal intact radial artery and posterior tibial pulses bilaterally. There is trace pedal edema. Results & Data Vital Signs (Past 12 Hours) Vital Signs Temp Pulse Pulse Pulse Resp BP BP 12/06/19 08:02 36.5 C 62 18 110/62 12/06/19 08:00 66 12/06/19 07:12 36.4 C L 61 17 105/64 12/06/19 04:32 36.4 C L 67 20 114/62 12/06/19 00:14 36.5 C 59 L 19 89/58 L Pulse Ox 12/06/19 08:02 96 12/06/19 08:00 12/06/19 07:12 95 12/06/19 04:32 95 12/06/19 00:14 96 PG Care Time/CCT Total # of Minutes Spent Total Time Spent with Patient: Total time spent is greater than 50% in coordination of care (as documented) at patient's floor/unit and/or counseling patient: Coding Level of Care Code 67364 Subseq Hosp Care Lvl 3 Diagnoses Atrial fibrillation with RVR I48.91 HOCM (hypertrophic obstructive cardiomyopathy) I42.1 Elevated troponin R79.89 Chronic diastolic CHF (congestive heart failure) I50.32 HTN (hypertension) I10
--- NOTE | 2019-12-06 14:16 | Electrocardiogram Report ---
Test Reason : Blood Pressure : / mmHG Vent. Rate : 069 BPM Atrial Rate : 069 BPM P-R Int : 150 ms QRS Dur : 094 ms QT Int : 454 ms P-R-T Axes : 022 010 049 degrees QTc Int : 486 ms Sinus rhythm with Premature atrial complexes Poor R wave progression, consider anterior TX vs. lead placement vs. LVH Abnormal ECG When compared with ECG of 05-DEC-2019 07:03, Sinus rhythm has replaced Atrial fibrillation Confirmed by Albaro Woodard ([id number]) on 12/06/2019 2:16:15 PM Referred By: REFERRED SELF Confirmed By:Albaro Woodard
--- NOTE | 2019-12-06 14:17 | Discharge Summary ---
Date of Service December 06, 2019 Admission HPI Per Admitting Provider This is a 64 yo F with PMHx of afib on xarelto, HTN, GERD, osteoarthritis, Schatzki's ring who presented to the ER with chest palpitations and chest heaviness which started early this morning which woke her from sleep. Patient notes that in the last 2 days she has not been feeling very well. She thought that she had some sort of viral infection, had few sweats and chills, generalized malaise, slightly nauseous, but had no other specific complaints. She did not take any of her medication yesterday which would include her beta- pau and anticoagulation. Last night around 3 AM the patient woke up feeling palpitations, and took Metoprolol XL 200 mg at 4 AM, without improvement of her symptoms she presented here. Since being in the ER the patient was given Lopressor 5 mg IV which in response dropped her blood pressures to the 90s over 80s, was bolused with 1 L NSS which improved blood pressure. She was started on a diltiazem drip. Principal Diagnosis Hypertrophic cardiomyopathy Afib with rapid ventricular rate Discharge Exam Constitutional WD/WN, vitals as above Eyes EOM intact bilaterally; no conjunctival abnormality ENMT external ear and nose normal, oropharynx normal Neck trachea midline, no thyromegaly normal visual inspection Respiratory normal respiratory effort, lungs clear to auscultation no respiratory distress Cardiovascular Rate/Rhythm: + tachycardic and + irregularly irregular Heart Sounds: normal S1 and normal S2 Gastrointestinal (Abdomen) Inspection/Auscultation: abdomen normal to inspection; abdomen not distended Musculoskeletal no cyanosis or clubbing, extremities motor strength 5/5 Skin no rashes, warm and dry Neurologic moves all extremities and awake Psychiatric Orientation: alert, oriented to person and cooperative Discharge Data Allergies Allergy/AdvReac Type Severity Reaction Status Date / Time doxycycline Allergy Mild Tingling Verified 12/02/19 07:39 sensation in mouth. Consultations 12/02/19 07:39 ED Decision to Admit Stat 12/02/19 11:54 Consult Case Management - Discharge Planning Routine 12/03/19 08:21 Consult Cardiology Routine Hospital Course (1) Atrial fibrillation with RVR: Paroxsymal afib with last prolonged episode in 2017 per patient. Has gone in and out of afib in the hospital with HR generally elevated up to 150s when in afib. - Put on sotalol 160mg PO BID which returned her to sinus rhythm. QTc on discharge was ~480 msec. - Lowered metoprolol XL to 50mg PO daily -> Can maybe stop eventually given beta-blockade of sotalol. (2) Acute diastolic CHF (congestive heart failure): On 12/04, she had increasing O2 demands and some mild respiratory distress. CXR showed increased pulmonary edema. In diastolic heart failure due to her afib with RVR combined with her hypertrophic cardiomyopathy. BNP elevated to 5000. - Started Lasix 20 mg IV BID with good urine output -> Became euvolemic by 12/06 with Lasix and return of sinus rhythm. - Discharged on Lasix 40 mg PO daily PRN for leg swelling, weight gain, or shortness of breath. (3) HOCM (hypertrophic obstructive cardiomyopathy): Last echo completed in Dec 2018 showed normal left ventricular size and function, severe LVH most pronounced at the anterior septum, resting LVOT gradient of 10 mmHg, and a Valsalva LVOT obstruction of 49 mmHg. - Repeat echo inpatient - Done on 12/03, appears stable from prior with hypertrophic cardiomyopathy. - I discussed with her in person and in writing about telling her family to get screened with echocardiograms. (4) Pneumonia: CXR on admission showing a RLL consolidation. Has had fevers while inpatient. - On 12/03, started Unasyn for community-acquired pneumonia vs. aspiration PNA. Doxycyline for atypicals and to avoid QTc prolonging medications. - Discharged on 3 more days of cefdinir and doxycycline to finish a standard pneumonia course. (5) HTN (hypertension): BP currently 100/65. - As above, lowered metoprolol XL to 50 mg daily - Held lisinopril/HCTZ while inpatient -> Discontinued on discharge as her BP was generally 100-110/50-60. It was as low as 90/60 overnight, and I did not want to lower it further or cause dehydration with the HCTZ. - Can restart as outpatient if needed (6) Dyslipidemia: - Continue statin therapy (7) Morbid obesity: BMI of 57.7. - Diet and exercise to be encouraged upon discharge (8) Schatzki's ring: Follows with GI as an outpatient. No complaints of indigestion. - Continue lansoprazole (9) ALEM (obstructive sleep apnea): Was tested and encouraged to use CPAP. Never got a machine at home. She does not feel she would benefit and was fairly reluctant to get one. I did encourage it. - Outpatient follow up (10) Leg wound, right: Right posterior calf wound present since having cellulitis which started ~2 weeks ago. - Will finish course for cellulitis with her pna abx as above. - Wound Care follow up as needed (11) DVT prophylaxis: Xarelto for afib Total Time Total Time Spent Total Time Spent (In Minutes): 35 Discharge Plan Discharge Items Patient Disposition: Home - Self-Care Reason For Visit: AFIB WITH RVR Discharge Diagnosis: Atrial fibrillation with rapid rate & some pulmonary edema Activity: Resume your previous activity Non-emergency contact: Primary Care Provider and Abnormal Psychology Teacher Call non-emergency contact if: your symptoms worsen Follow-up/Referrals: Albaro Woodard MD [Physician] - 12/26/19 11:30 am (Please, follow up with Dr. Woodard on TuesdayDecember 26 at 11:30 am. *THIS APPOINTMENT WILL BE IN [address] OF [facility], NEXT TO THIS HOSP[facility].* If you need to change this appointment, call the office at [phone].) Naima Lee DO [Primary Care Provider] - 12/11/19 10:15 am (Please, follow up at Dr. Lee's office with her associate, Christie Balbuena, on TuesdayDecember 11 at 10:15 am. *If you need to change this appointment, call their office at [phone].) Diet: Heart Healthy Add Attending Provider Instructions: You were admitted to the hospital with atrial fibrillation with a fast heart rate. We were able to correct it with medications which you will need to keep taking on discharge. We were able to lower your metoprolol after starting the new medication and may be able to stop it entirely in the future. We also stopped your lisinopril/HCTZ tablet. In the hospital, you did not need either medication to keep your blood pressure at goal. For your furosemide, please only take it as needed. If you start to see more leg swelling, have more shortness of breath, or gain more than 2 pounds in a few days, please take the Lasix and call Dr. Woodard's office. For now, hold the combo blood pressure medication (lisinopril/HCTZ) unless Dr. Woodard or Dr. Lee tell you otherwise. Please have your children and other family screened for heart issues (hypertrophic cardiomyopathy). They will need an ultrasound of the heart (echocardiogram) to be sure they do not have a similar issue. Finally, we are giving you 3 more days of antibiotics. You possibly had a mild pneumonia and were on antibiotics in the hospital. You should take your first dose of the pair of antibiotics (doxycycline and cefdinir) tonight, then 2 times per day for 2 more days until they are gone. Pending Studies at Discharge: No Stand-Alone Forms: My [facility] [employer], Smoking Cessation Medications and DC Order Prescriptions: New sotalol 160 mg tablet 160 mg PO BID Qty: 60 RF: 1 furosemide 40 mg tablet 40 mg PO DAILY PRN (Reason: weight gain) Qty: 30 RF: 0 doxycycline hyclate 100 mg capsule 100 mg PO BID 3 Days Qty: 6 RF: 0 cefdinir 300 mg capsule 300 mg PO BID Qty: 6 RF: 0 metoprolol succinate 50 mg tablet extended release 24 hr 50 mg PO DAILY Qty: 30 RF: 1 Continued lansoprazole 30 mg capsule,delayed release(DR/EC) See Rx Instructions .ROUTE .COMPLEX Qty: 30 RF: 11 Calcium 600 + D(3) 600 mg calcium- 200 unit Capsule 2 cap PO QAM RF: 0 Multivitamin 50 Plus Tablet 1 tab PO QAM RF: 0 Xarelto 20 mg tablet 20 mg PO QAM RF: 0 Discontinued metoprolol succinate 200 mg tablet extended release 24 hr 200 mg PO QAM Qty: 90 RF: 3 furosemide [Lasix] 20 mg tablet 20 mg PO DAILY PRN (Reason: edema) Qty: 30 RF: 2 sulfamethoxazole-trimethoprim [Bactrim DS] 800-160 mg tablet 1 tab PO BID 7 Days Qty: 14 RF: 0 lisinopril-hydrochlorothiazide 20-25 mg tablet 1 tab PO QAM RF: 0 Discharge Orders: Discharge Order (Routine); Ordered 12/06/19 Ordered By: Golden Eddy/Other Patient Handouts: Heart Failure Tracking Weight, Atrial Fibrillation Admission Data Admit Date/Time: 12/02/19 08:42 Attending Provider: Golden Dougherty Admit Provider: Jose Warner Primary Care Provider: Naima Lee Other Providers: Golden Dougherty ; Albaro Woodard Other Interventions: Discharge Summary Assessment (RN) Last Done: 12/06/19 11:20 DC Date/Time DO NOT enter until pt leaves facility: 12/06/19 13:52 Coding Level of Care Code D/C Day Management >30 mins Diagnoses Atrial fibrillation with RVR I48.91 Acute diastolic CHF (congestive heart failure) I50.31 HOCM (hypertrophic obstructive cardiomyopathy) I42.1 Pneumonia J18.9 HTN (hypertension) I10 Dyslipidemia E78.5 Morbid obesity E66.01 Schatzki's ring K22.2 ALEM (obstructive sleep apnea) G47.33 Leg wound, right S81.801A DVT prophylaxis Z29.9
== END 2019-12-06 13:52 | disposition home or self-care (01) | DRG 308 ==
LOC: ED 06:27 → 2S 08:42 → SUATTDRO 08:42 → 2S 11:49